=== PATIENT | female | born 1950 | race Caucasian/White ===

== ENCOUNTER → 2017-02-03 | Outpatient (CLI) | payer OTHER ==
[~2017-02-03] MED LIST: ADVAIR HFA115 MCG/21 INH; ALLOPURINOL 10100 M1 PO; ALPRAZOLAM 0.0.25 M1 PO; AMITRIPTYLINE H10 M1 PO; APAP/CODEINE ELI5 M1 OR; APAP650 PO; ARTHROTEC 75 T1 EAC1 PO; AZITHROMYCIN 2250 MG PO; BACTROBAN CREAM30 G1 NASAL; BACTROBAN CREAM30 G1 TOP; CLARINEX5 MG PO; CLEOCIN HCL150 MG PO; COUMADIN 2.5MG2.5 M1 PO; COUMADIN 3 MG TA3 M1 PO; COUMADIN 4 MG TA4 M1 PO; COUMADIN 5 MG TA5 M1 PO; DARVOCET-N 1001 EACH PO; DEEP SEA NASAL44 M1 NASAL; DOXYCYCLINE 10100 M1 PO; DOXYCYCLINE 10100 MG PO; ENOXAPARIN120 MG/0.1 SUBQ; GLIPIZIDE XL5 MG PO; GLIPIZIDE5 MG PO; HIBICLENS120 ML TOP; HYDROCODON-ACE1 EAC7 PO; HYDROCODONE-APA1 TA1 PO; HYDROCODONE-CHLO5 ML PO; INVANZ 1GM/NS 101 GM IV; IRON325 PO; LANSOPRAZOLE30 MG PO; LEVALBUTER1.25 MG/0. INH; LYRICA25 MG PO; MACROBID 100 M100 M1 PO; MEDROL DOSPAK21 TA1 PO; MEDROLDOSEPACK PO; MELOXICAM7.5 MG PO; METFORMIN HYDR100 GM MC; MUCINEX TA600 MG/TA2 PO; MUPIROCIN22 GM; NORCO 5-325 TA1 EACH PO; ONDANSETRON HCL4 M2 PO; PEPCID PO; PERCOCET 7.5-31 EACH PO; PREDNISONE 1 MG1 M1; PREDNISONE 10 M10 M1 PO; PREDNISONE 10 M10 MG PO; PREDNISONE 20 M20 MG PO; PREVACID 30MG C30 M1 OR; PREVACID30 M1 PO; PREVACID30 MG PO; PSEUDOEPHEDRIN120 M1 PO; SINGULAIR; SINGULAIR 10 MG10 M1 PO; SKELAXIN 800 M800 M1 PO; SKELAXIN 800 M800 MG PO; TESSALON PERLE100 MG PO; TRAMADOL 50 MG50 MG PO; VALTREX 500 MG500 MG PO; VALTREX1000 MG PO; XANAX 0.5 MG0.5 M1 PO; XOPENEX HF1 UDINHALE IH; XOPENEX HFA15 GM INH; XOPENEX0.63 MG/3 IH; ZOLOFT100 MG PO; [UNRECOGNIZED DRUG - OTHER]; [UNRECOGNIZED DRUG - OTHER] IV; [UNRECOGNIZED DRUG - SUPPLY]
== END ==
LOC: RAD 01:59
DX: Z12.31 Encounter for screening mammogram for malignant neoplasm of breast (principal)

== ENCOUNTER 2017-03-06 12:37 | Inpatient (IN) | payer OTHER ==
[~2017-03-06] VITALS: Ht 162.6 cm; Wt 105.2 kg
--- NOTE | ~2017-03-06 | HC ---
[facility] [place] [address] CONSULTATION Name: MICHAEL MONTANA Room #: 448-P [facility] IN M.R.#: [id number] Admission: 03/06/17 Attend Phys: Reed Médnez Discharge: Date of : 52 Report #: [id number] THIS REPORT FOR: //name// CC: Abdullahi Gómez DATE OF SERVICE: 03/06/2017 DATE OF SERVICE: 03/06/2017. REFERRING PHYSICIAN: Dr. Méndez. REASON FOR CONSULTATION: Exacerbation of asthma. CHIEF COMPLAINT: Shortness of breath. HISTORY OF PRESENT ILLNESS: Our group was asked to evaluate the patient in consultation while hospitalized at [facility] this evening. She is known to our service, followed by Dr. Carrillo our service for almost 18 years course of persistent asthma as well as for being heterozygous for alpha1-antitrypsin deficiency, was on alpha1 replacement therapy for several years and no longer covered by insurance also had been on IVIG therapy for several years until IgG levels apparently were adequate levels, has had difficulty with persistent asthma and recurrent exacerbations requiring frequent "bursts" of steroids throughout the year, was hospitalized in Intensive Care Unit at a facility in the [place] where she stays during the winter this past October for pneumonia. AT THAT TIME MAY HAVE HAD REACTION TO MUCOMYST NEBULIZER TREATMENTS LIKELY AN ALLERGIC REACTION WITH A DERMATITIS ON HER UPPER LIP. Since that time, she has had difficulty managing her asthma, is currently on Dulera twice daily, Xopenex nebulized, but has had increasing symptoms over the last week, presented to the Emergency Department on the 02/20/2017 with similar complaints, was sent home with "burst" of steroids, saw Dr. Carrillo in our office and she had shown what appeared to be REACTION TO DOXYCYCLINE that she has received from the Emergency Department as well, he increased her prednisone. She states to 90 mg, but she continues to have symptoms, has cough with chest congestion and has difficulty clearing of chest, feel like in the upper chest and with increased wheezing and possible stridor, has had fevers as 101, no chills or rigors, cough has been productive of green sputum. She has received systemic steroids and bronchodilators in the Emergency Department, but has not felt significantly different. Denies any history of need for other injectables to manage her asthma. [facility] [address] [place] [address] CONSULTATION Name: DAYANA MONTANAH Cuco Room #: 448-P [facility] IN ..#: [id number] Admission: 03/06/17 Attend Phys: Reed Méndez Discharge: Date of : 52 Report #: [id number] ALLERGIES: INCLUDE PENICILLIN, SULFA, MORPHINE, CEFOTETAN AND LEVAQUIN LIKELY DOXYCYCLINE AND MUCOMYST. PAST MEDICAL HISTORY: 1. History of alpha1-antitrypsin deficiency heterozygous. 2. Obstructive lung disease, most consistent with some persistent asthma. 3. Obstructive sleep apnea, on nocturnal CPAP. 4. Multiple antibiotic allergies. OUTPATIENT MEDICATIONS: Have been prednisone, Singulair 10 mg daily, allopurinol 100 mg daily, levalbuterol 1.25 p.r.n., Dulera 200/5 two puffs twice daily, Naprosyn 220 mg twice daily, Prevacid 30 mg daily, Zoloft 100 mg at bedtime, Clarinex daily and Arthrotec. 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 FAMILY HISTORY: Negative for any significant pulmonary disease. REVIEW OF SYSTEMS: CONSTITUTIONAL: Fever as described. No chills or rigors. ENT: Denies any upper respiratory congestion, rhinorrhea or dysphagia. CARDIOVASCULAR: No chest pains or palpitations. GASTROINTESTINAL: No nausea, vomiting, diarrhea, constipation or abdominal pain. GENITOURINARY: No dysuria, no frequency. INTEGUMENT: Denies any rash except for the outbreak she had associated with doxycycline has resolved since discontinuing. MUSCULOSKELETAL: No new joint pains or swelling. No significant lower extremity edema reported. PHYSICAL EXAMINATION: VITAL SIGNS: Afebrile, pulse 70s and regular, respiratory rate 22, blood pressure 128/48, oxygen saturation 92% on room air. GENERAL: This is an obese, middle-aged woman in mild respiratory distress. HEENT: Clear oropharynx, Mallampati 2 airway, no thrush. NECK: Supple, no lymphadenopathy. LUNGS: Reveal diffuse prolonged expiratory phase with diffuse expiratory wheezes noted throughout or somewhat coarse. CARDIOVASCULAR: Heart was regular. No murmurs noted. ABDOMEN: Soft, nontender, no masses. EXTREMITIES: Without edema. INTEGUMENT: No significant rash noted. LABORATORY DATA: Sodium 139, potassium 4.0, chloride 105, bicarbonate 23, BUN 19, creatinine 1.0. Glucose 131. Liver enzymes normal. White blood cell count [facility] [address] [place] [address] CONSULTATION Name: MICHAEL MONTANA Room #: 448-P ADM IN M.R.#: [id number] Admission: 03/06/17 Attend Phys: Reed Méndez Discharge: Date of : 52 Report #: [id number] 20,000, hemoglobin 14, hematocrit 42, platelet count 249. 1% band forms, 11% lymphocytes. No arterial blood gas performed. CT scan of the chest PE protocol revealed no pulmonary emboli. There are suboptimal; however, pulmonary contrasting for this is diffuse, somewhat nodular parenchymal infiltrates and some ground glass changes. IMPRESSION: 1. Nodular pulmonary infiltrates and patient is not improving after outpatient therapy and recent hospitalization 4 months ago for similar complaints, be worried about an atypical infectious process. 2. History of obstructive lung disease consistent with chronic obstructive pulmonary disease with an asthmatic component. 3. Alpha1-antitrypsin deficiency. 4. Obstructive sleep apnea. 5. Multiple antibiotic allergies. The patient should be on antimicrobial therapy for what appears to be pneumonia as evidenced by the elevated white blood cell count and pulmonary infiltrates, fever at home and productive sputum of green color. SUGGESTIONS: 1. An Infectious Disease consultation with Dr. Miller who knows this patient to further assist with antibiotic selections given her allergies. 2. Frequent bronchodilators. We will start with, levalbuterol, and ipratropium with intrapulmonary percussive ventilation to assist with airway clearance. 3. Add Mucinex. 4. Systemic steroids with taper. 5. Follow up chest radiograph. 6. Continue with inhaled steroids, we will use budesonide as Dulera not available in the hospital. 7. Additional recommendations to follow. Thank you for requesting our suggestions. Consider fiberoptic bronchoscopy to further evaluate if not improving. <ELECTRONICALLY SIGNED> By: Bhavesh Damon MD 03/07/17 1330 2019 1154 Bhavesh Damon MD /mynor
--- NOTE | ~2017-03-06 | CNG ---
[facility] [place] [address] CYTO-NONGYN REPORT PROCEDURE Name: TEGAN MONTANA Room #: 448-P ADM IN M.R.#: [id number] Admission: 03/06/17 Date of : 52 Discharge: Report #: [id number] Path Case #: [id number] CYTOPATHOLOGY REPORT COLLECTION DATE: 03/09/2017 RECEIVED DATE: 03/09/2017 SUBMITTING PHYS: Dr. Asia Carrillo OTHER PHYS: Dr. Reed Gómez CLINICAL HISTORY: SOB, cough, bronchitis SPECIMEN(S) RECEIVED: A.Bronchoalveolar lavage, NOS B.Bronchial brushings, RLL C.Bronchial brush rinse, RLL * * * * * * * * * * * * FINAL DIAGNOSIS: A. Lung, Bronchoalveolar lavage: - No malignant cells identified. Bronchial epithelial cells, alveolar macrophages and acute inflammatory cells are identified. B. Lung, RLL, Bronchial brushings: - No malignant cells identified. Reactive bronchial epithelial cells, alveolar macrophages and inflammatory cells are identified. C. Lung, RLL, Bronchial brush rinse: - No malignant cells identified. Reactive bronchial epithelial cells, alveolar macrophages and inflammatory cells are identified. PATHOLOGIST: Cristina Bergman M.D. REPORT ELECTRONICALLY SIGNED BY: Cristina Bergman M.D. DATE/TIME: 03/10/2017 16:03 * * * * * * * * * * * * GROSS PATHOLOGY: A. Bronchoalveolar lavage, NOS: The specimen is submitted unfixed, labeled "Tegan Montana S". Received by the Cytology Department is 15 mL of cloudy white fluid. One ThinPrep slide was prepared. B. Bronchial brushings, RLL: The specimen is labeled "Shae Montanah S" and consists of two fixed slides. C. Bronchial brush rinse, RLL: The specimen is labeled "Aldrjoao, Tegan S" and consists of a brush tip in fixative. One ThinPrep slide was prepared. (CLT 03.09.2017) CROCODILE FARMER(S): JOSE ROBERTO Mai(ASCP), [facility] INITIAL CPT CODE(S): A; [address] [facility] [address] [place] [address] CYTO-NONGYN REPORT PROCEDURE Name: TEGAN MONTANA S Room #: [facility]- ADM IN M.R.#: [id number] Admission: 03/06/17 Date of : 52 Discharge: Report #: [id number] Path Case #: [id number]; [id number] C; [id number] Professional services performed by [facility] at [facility] [address] [place] [address] Technical services performed by [facility] at [address] [place] [address]., [address], [place] [address]. [facility], [address] [place] [address] PHONE: [phone] DIRECTOR: Alvin W. Bernardo, M.D. * * * END OF REPORT * * *
--- NOTE | ~2017-03-06 | HC ---
[facility] [place] [address] CONSULTATION Name: MICHAEL MONTANA Room #: 448-P [facility] IN .R.#: [id number] Admission: 03/06/17 Attend Phys: Reed Méndez Discharge: Date of : 52 Report #: [id number] THIS REPORT FOR: //name// CC: Asia Gómez DATE OF SERVICE: 03/07/2017 INFECTIOUS DISEASE CONSULTATION ATTENDING PHYSICIAN: Dr. Reed Méndez. CONSULTATION REQUESTED BY: Dr. Bhavesh Damon and Dr. Maverick Carrillo. REASON FOR CONSULTATION: Pulmonary infiltrates - pneumonia - bronchitis. Multiple drug allergies. HISTORY OF PRESENT ILLNESS: The patient is a 66-year-old white woman admitted through the emergency room with a history of increasing difficulty in breathing and some chronic cough that has failed to improve despite high dose of steroids and prescription of doxycycline that has caused her to experience a drug reaction, rash. At present, the patient is having some cough, unable to produce much sputum and scheduled to have bronchoscopy tomorrow. The patient apparently was residing in [place] during the winter time and was hospitalized for a couple of days in the intensive care unit in a local hospital with a diagnosis of pneumonia. PAST MEDICAL HISTORY: Alpha 1 antitrypsin deficiency with history of reactive airway disease and recurring lower respiratory tract infection. History of glaucoma. Episode of C. difficile colitis. Depression. Status post bilateral hip replacement for avascular necrosis, status post right shoulder rotator cuff surgery in 2010 and subsequently right shoulder replacement in the year 2016. DRUG ALLERGIES: The patient appears to be allergic and intolerant to PENICILLIN (rash), SULFA (rash), DOXYCYCLINE (rash), CEFOTETAN and LEVOFLOXACIN. She is also intolerant to MORPHINE. MEDICATIONS: She is currently on Zithromax 500 mg p.o. daily, loratadine 10 mg p.o. daily, allopurinol 100 mg daily, montelukast 10 mg daily, pantoprazole 40 mg daily, methylprednisolone 60 mg IV q.i.d., Atrovent and levalbuterol inhalation treatments, calcium carbonate 500 mg p.o. q.i.d., guaifenesin 1200 mg b.i.d., enoxaparin 40 mg at bedtime and sertraline 100 mg at bedtime. She is on budesonide 0.5 mg b.i.d. inhalation treatments. She is on p.r.n. zolpidem tartrate and p.r.n. polyethylene glycol. Had supplemental nitroglycerin p.r.n. [address] [address] CONSULTATION Name: MICHAEL MONTANA Room #: 448-P [facility] IN M.R.#: [id number] Admission: 03/06/17 Attend Phys: Reed Méndez Discharge: Date of : 52 Report #: [id number] SOCIAL HISTORY: See H and P and old records. FAMILY HISTORY: See H and P and old records. REVIEW OF SYSTEMS: Besides respiratory symptoms of cough, shortness of breath and dyspnea on exertion, denies fevers, night sweats or systemic symptoms. PHYSICAL EXAMINATION: GENERAL: Overweight woman, not toxic looking. VITAL SIGNS: On admission, temperature 99, pulse 96, respirations 22 and BP 172/64. Height 5 feet 4 inches, weight 232 pounds. O2 saturation is 95% on room air. HEENT: Head normocephalic, atraumatic. Pupils reactive. Mouth, no thrush. NECK: Supple. No thyromegaly or lymphadenopathy. LUNGS: Reveal some few rhonchi with wheezes here and there. HEART: S1, S2. No gallop or murmur. ABDOMEN: Obese, soft. No masses or megaly. PELVIC AND RECTAL EXAMINATION: Deferred. EXTREMITIES: No clubbing or cyanosis. NEUROLOGIC: Grossly within normal limits. LABORATORY DATA: Sodium 139, potassium 4, BUN 19, creatinine 1 and calcium 8.6. Albumin 3 g/dL. NT-proBNP 313. WBC 20,500, hemoglobin 13.6 g/dL and platelets 249,000. White blood cell count differential revealed 84% segmented neutrophils and 1% bands. Urinalysis normal. Chest x-ray and CT scan of the chest, reviewed with Dr. Rashawn Cloud. The patient had narrowing of the upper airways as well as infiltrates mainly on the right lower lobe and some nodularity on both lungs. The CT scan findings are new as compared to previous CT scan of the chest done in December of 2016. ASSESSMENT: 1. Bilateral nodular pulmonary infiltrates - bronchitis, question etiology. 2. Alpha-1 antitrypsin deficiency. 3. Reactive airway disease. 4. Multiple drug allergies as enumerated above. 5. Status post bilateral hip and right shoulder replacement. SUGGESTIONS: Recommend proceed with bronchoscopy as already scheduled by Dr. Carrillo. Continues Zithromax. Since the patient has resided in [place], we will obtain fungal serology and specifically concerned about coccidioidomycosis. [facility] [address] [place] [address] CONSULTATION Name: MICHAEL MONTANA Room #: 448-P ADM IN M.R.#: [id number] Admission: 03/06/17 Attend Phys: Reed Méndez Discharge: Date of : 52 Report #: [id number] Carrillo, thank you for requesting my suggestions in the care of your patient. <ELECTRONICALLY SIGNED> By: Juan Miller MD 03/08/17 1052 1050 1300 Juan Miller MD /nt
--- NOTE | ~2017-03-06 | EKG ---
[address] [place] [address] ELECTROCARDIOGRAM REPORT Name: MICHAEL MONTANA Room #: 448-P [facility] IN M.R.#: [id number] Admission: 03/06/17 Attend Phys: Reed Méndez Discharge: Date of : 52 Report #: [id number] THIS REPORT FOR: //name// [facility] ED Test Date: 2017-03-06 Test Time: 12:55:54 Pat Name: MICHAEL MONTANA Department: Room: 448 Gender: F Refractory Manager: june : 1950 Requested By: Marcy Collado Order Number: [id number] MD: Duane Miller Measurements Intervals [place] Rate: 100 P: 20 ID: [id number] QRS: -61 QRSD: 95 T: 66 QT: 356 QTc: 460 Interpretive Statements Sinus tachycardia Left anterior fascicular block Abnormal R-wave progression, late transition Electronically Signed On 03-08-2017 9:43:09 CDT by Duane Miller [email or web address] <ELECTRONICALLY SIGNED> By: Duane Miller MD 03/08/17 0943 D: [id number] Duane Miller MD /LUCIANO
[2017-03-06 12:37] VITALS: BP 172/64
[~2017-03-06 12:37] MED LIST changes: +ALEVE220 MG PO; +DULERA 200 MCG/13 GM INH
[2017-03-06 13:09] LABS: HEMOGLOBIN 13.6 gm/dL (12.0-15.0); MCH 26.9 pg (26.0-34.0); MCHC 32.3 g/dL (28.0-37.0); MCV 83.3 fL (80.0-100.0); PLATELET COUNT 249 thou/uL (150-400); RBC 5.04 mil/uL (4.20-5.00); RDW 15.6 % (10.5-14.5); WBC 20.5 thou/uL (4.0-11.0)
[2017-03-06 13:10] LABS: MANUAL DIFF YES
[2017-03-06 13:15] LABS: ANION GAP 11 mmol/L (7-16); BUN 19 mg/dL (7-18); CALCIUM 8.6 mg/dL (8.5-10.1); CHLORIDE 105 mmol/L (98-107); CO2 23 mmol/L (21-32); GLUCOSE 131 mg/dL (74-106); SODIUM 139 mmol/L (136-145)
[2017-03-06 13:22] LABS: ALKALINE PHOSPHATASE 96 U/L (46-116); SGOT 27 U/L (15-37); SGPT 35 U/L (30-65); TOTAL BILIRUBIN 0.5 mg/dL (<0.1-1.0); TOTAL PROTEIN 7.2 g/dL (6.4-8.2); TROPONIN-I < 0.04 ng/mL (<0.04-0.07)
[2017-03-06] MEDS ORDERED: PREDNISONE 10 M10 MG PO (13:29)
[2017-03-06 13:44] LABS: ABSOLUTE NEUTROPHILS 17.4 thou/uL (1.4-8.2); ANISOCYTOSIS SLIGHT; TOTAL CELL COUNT 100
[2017-03-06 15:33] LABS: URINE BILIRUBIN NEGATIVE (Negative); URINE BLOOD NEGATIVE (Negative); URINE COLOR YELLOW; URINE GLUCOSE-RANDOM* NEGATIVE (Negative); URINE KETONES NEGATIVE (Negative); URINE NITRITE NEGATIVE (Negative); URINE PROTEIN (DIPSTICK) NEGATIVE (Negative); URINE UROBILINOGEN 0.2 E.U./dl (0.2-1.0)
[2017-03-06 16:01] VITALS: BP 169/71
[2017-03-06 16:45] VITALS: BP 159/56
[2017-03-06] MEDS ORDERED: PREDNISONE 20 M20 MG PO (18:00)
[2017-03-06 19:18] VITALS: BP 128/48
[2017-03-06 23:27] VITALS: BP 132/38
[2017-03-07 04:25] VITALS: BP 136/51
[2017-03-07 08:00] VITALS: BP 136/51; BP 176/79
[2017-03-07 16:00] VITALS: BP 148/55
[2017-03-07 20:20] VITALS: BP 157/58
[2017-03-08 04:20] VITALS: BP 135/62
[2017-03-08 06:19] LABS: MCV 83.4 fL (80.0-100.0); RBC 4.67 mil/uL (4.20-5.00)
[2017-03-08 06:21] LABS: HEMATOCRIT 38.9 % (37.0-47.0); HEMOGLOBIN 12.6 gm/dL (12.0-15.0); MCHC 32.4 g/dL (28.0-37.0); RDW 14.5 % (10.5-14.5); WBC 10.6 thou/uL (4.0-11.0)
[2017-03-08 06:50] LABS: ALBUMIN 2.6 g/dL (3.4-5.0); CALCIUM 8.6 mg/dL (8.5-10.1); PHOSPHORUS 3.3 mg/dL (2.5-4.9); POTASSIUM 4.9 mmol/L (3.5-5.1)
[2017-03-08 08:00] VITALS: BP 140/65
[2017-03-08 19:17] VITALS: BP 127/51
[2017-03-09 04:35] VITALS: BP 151/60
[2017-03-09 07:40] VITALS: BP 127/57
[2017-03-09 15:09] VITALS: BP 135/50
[2017-03-09 18:11] LABS: BLASTOMYCES-IMMUNODIFF Negative (Neg:<1:1); HISTOPLASMA-IMMUNODIFF Negative (Neg:<1:1)
[2017-03-09 19:53] VITALS: BP 145/48
[2017-03-10 04:40] VITALS: BP 153/57
[2017-03-10 08:00] VITALS: BP 154/64
[2017-03-10 13:10] LABS: STREP PNEUMO SEROTYPE 1 IGG <0.3 ug/mL (>1.3); STREP PNEUMO SEROTYPE 12F IGG <0.3 ug/mL (>1.3); STREP PNEUMO SEROTYPE 14 IGG 1.1 ug/mL (>1.3); STREP PNEUMO SEROTYPE 17F IgG <0.3 ug/mL (>1.3); STREP PNEUMO SEROTYPE 19F IGG 3.9 ug/mL (>1.3); STREP PNEUMO SEROTYPE 2 IGG <0.3 ug/mL (>1.3); STREP PNEUMO SEROTYPE 20 IGG 0.5 ug/mL (>1.3); STREP PNEUMO SEROTYPE 22F IGG <0.3 ug/mL (>1.3); STREP PNEUMO SEROTYPE 23F IGG <0.3 ug/mL (>1.3); STREP PNEUMO SEROTYPE 26 IGG <0.3 ug/mL (>1.3); STREP PNEUMO SEROTYPE 3 IGG 0.7 ug/mL (>1.3); STREP PNEUMO SEROTYPE 34 IGG 0.4 ug/mL (>1.3); STREP PNEUMO SEROTYPE 4 IGG <0.3 ug/mL (>1.3); STREP PNEUMO SEROTYPE 43 IGG 0.3 ug/mL (>1.3); STREP PNEUMO SEROTYPE 5 IGG <0.3 ug/mL (>1.3); STREP PNEUMO SEROTYPE 51 IGG 0.3 ug/mL (>1.3); STREP PNEUMO SEROTYPE 54 IGG 1.3 ug/mL (>1.3); STREP PNEUMO SEROTYPE 56 IGG <0.3 ug/mL (>1.3); STREP PNEUMO SEROTYPE 57 IGG 2.7 ug/mL (>1.3); STREP PNEUMO SEROTYPE 68 IGG <0.3 ug/mL (>1.3); STREP PNEUMO SEROTYPE 70 IGG <0.3 ug/mL (>1.3); STREP PNEUMO SEROTYPE 8 IGG <0.3 ug/mL (>1.3); STREP PNEUMO SEROTYPE 9N IGG <0.3 ug/mL (>1.3)
[2017-03-10 16:00] VITALS: BP 175/83
[2017-03-10 17:12] LABS: ASPERGILLUS FLAVUS-ID Negative (Neg:<1:1); ASPERGILLUS FUMIGATUS-ID Negative (Neg:<1:1); ASPERGILLUS NIGER-ID Negative (Neg:<1:1)
[2017-03-10 19:36] VITALS: BP 151/58
[2017-03-11 03:15] LABS: GLYCOHEMOGLOBIN (HGB A1C) 6.3 % (4.8-5.6)
[2017-03-11 03:53] VITALS: BP 133/61
[2017-03-11 08:00] VITALS: BP 168/62
[2017-03-11 19:49] VITALS: BP 140/63
[2017-03-12 05:56] LABS: HEMATOCRIT 40.9 % (37.0-47.0); HEMOGLOBIN 13.7 gm/dL (12.0-15.0); MCH 27.8 pg (26.0-34.0); MCHC 33.5 g/dL (28.0-37.0); MCV 83.1 fL (80.0-100.0); PLATELET COUNT 162 thou/uL (150-400); RBC 4.92 mil/uL (4.20-5.00); RDW 15.4 % (10.5-14.5); WBC 9.3 thou/uL (4.0-11.0)
[2017-03-12 06:07] LABS: MANUAL DIFF YES
[2017-03-12 06:16] LABS: ALBUMIN 2.8 g/dL (3.4-5.0); CALCIUM 8.5 mg/dL (8.5-10.1); CREATININE 0.9 mg/dL (0.6-1.0); POTASSIUM 4.5 mmol/L (3.5-5.1); TOTAL BILIRUBIN 0.4 mg/dL (<0.1-1.0); TOTAL PROTEIN 6.2 g/dL (6.4-8.2)
[2017-03-12 06:23] VITALS: BP 170/68
[2017-03-12 08:09] VITALS: BP 137/54
[2017-03-12] MEDS ORDERED: ZITHROMAX250 MG NG (09:28)
[2017-03-12 09:38] VITALS: BP 137/54
[2017-03-12 10:01] LABS: ABSOLUTE NEUTROPHILS 7.7 thou/uL (1.4-8.2); ANISOCYTOSIS SLIGHT; METAMYELOCYTES 4 %; TOTAL CELL COUNT 100
== END 2017-03-12 09:55 | disposition home or self-care (01) | DRG 871 ==
LOC: ER 12:37 → EROBS 15:32 → 4S 15:32
PROVIDERS: Hospitalist; Internal Medicine Infectious Disease; Internal Medicine Pulmonary Disease; Nurse Practitioner Family; Physician Assistant
PROC: 0B968ZX Drainage of Right Lower Lobe Bronchus, Via Natural or Artificial Opening Endoscopic, Diagnostic (ICD-10-PCS; principal; 2017-03-08)
PROC: 0B9B8ZX Drainage of Left Lower Lobe Bronchus, Via Natural or Artificial Opening Endoscopic, Diagnostic (ICD-10-PCS; principal; 2017-03-08)
PROC: 0B958ZX Drainage of Right Middle Lobe Bronchus, Via Natural or Artificial Opening Endoscopic, Diagnostic (ICD-10-PCS; principal; 2017-03-08)
DX: A41.9 Sepsis, unspecified organism (principal); J96.01 Acute respiratory failure with hypoxia; J18.9 Pneumonia, unspecified organism; J44.1 Chronic obstructive pulmonary disease with (acute) exacerbation; J44.0 Chronic obstructive pulmonary disease with (acute) lower respiratory infection; M10.9 Gout, unspecified; K21.9 Gastro-esophageal reflux disease without esophagitis; E11.9 Type 2 diabetes mellitus without complications; F32.9 Major depressive disorder, single episode, unspecified; Z96.611 Presence of right artificial shoulder joint; I10 Essential (primary) hypertension; Z96.643 Presence of artificial hip joint, bilateral; H40.9 Unspecified glaucoma; E88.01 Alpha-1-antitrypsin deficiency; J20.9 Acute bronchitis, unspecified; G47.33 Obstructive sleep apnea (adult) (pediatric); Z98.42 Cataract extraction status, left eye; Z88.5 Allergy status to narcotic agent; Z88.1 Allergy status to other antibiotic agents; Z88.2 Allergy status to sulfonamides; Z90.49 Acquired absence of other specified parts of digestive tract; Z86.711 Personal history of pulmonary embolism; Z88.8 Allergy status to other drugs, medicaments and biological substances; Z87.891 Personal history of nicotine dependence; Z98.41 Cataract extraction status, right eye
CPT/HCPCS: 10100; 27001

== ENCOUNTER 2017-04-19 09:57 | Inpatient (IN) | payer OTHER ==
[~2017-04-19] VITALS: Ht 162.6 cm; Wt 109.3 kg
--- NOTE | ~2017-04-19 | HC ---
[facility] [place] [address] CONSULTATION Name: MICHAEL MONTANA Room #: 310-P [facility] IN M.R.#: [id number] Admission: 04/19/17 Attend Phys: Sigifredo Benavides MD Discharge: Date of : 52 Report #: [id number] THIS REPORT FOR: //name// CC: Sigifredo Gómez DATE OF SERVICE: 04/19/2017 REASON FOR CONSULTATION: Exacerbation of obstructive lung disease. IMPRESSION: 1. Exacerbation of obstructive lung disease. 2. Atelectasis, no definite pneumonia. 3. Obstructive sleep apnea. 4. History of alpha-1 antitrypsin deficiency. 5. MULTIPLE ANTIBIOTIC ALLERGIES. PLAN: Corticosteroids, IV fluids, hold on antibiotics. We will follow closely with you. Continue bronchodilators. HISTORY OF PRESENT ILLNESS: The patient was being tapered off corticosteroids after last admission; however, has not improved and was sent to the Emergency Room. She is feeling better this evening. I saw her in the Emergency Room this evening, feeling better. We will continue same. PAST MEDICAL HISTORY: 1. Alpha-1 antitrypsin deficiency, heterozygous. 2. Obstructive lung disease/asthma. 3. JEAN, on CPAP. MEDICATIONS: Included Clarinex, Arthrotec, Zoloft, Prevacid, Naprosyn, Dulera, levalbuterol, allopurinol, Singulair. SOCIAL HISTORY: Positive tobacco in distant past, worked in a [employer]. Positive ETOH, rare. FAMILY HISTORY: Negative for lung disease. REVIEW OF SYSTEMS: No fever or chills. Positive shortness of breath, cough, oral dryness. No nausea or vomiting, no diarrhea. PHYSICAL EXAMINATION: VITAL SIGNS: Temperature 98.3, pulse 96, respirations 18, BP 145/50. EYES: Negative icterus. NECK: Negative JVD. LUNGS: Showed wheeze bilaterally. [facility] [address] [place] [address] CONSULTATION Name: MICHAEL MONTANA Room #: 310-P [facility] IN [facility]#: [id number] Admission: 04/19/17 Attend Phys: Sigifredo Benavides MD Discharge: Date of : 52 Report #: [id number] HEART: Regular. ABDOMEN: Bowel sounds present. EXTREMITIES: Showed no edema. Bruising noted. LABORATORY DATA: X-rays were reviewed. I appreciate the opportunity to assist in the care of your patient. By: 2044 Asia Carrillo MD /nt
[2017-04-19 09:57] VITALS: BP 136/97
[~2017-04-19 09:57] MED LIST changes: +ZITHROMAX250 MG NG
[2017-04-19] MEDS ORDERED: PREVACID30 M2 PO (10:08)
[2017-04-19] MEDS ORDERED: ALEVE220 MG PO (10:08)
[2017-04-19 10:40] LABS: HEMATOCRIT 41.6 % (37.0-47.0); HEMOGLOBIN 13.8 gm/dL (12.0-15.0); MCHC 33.2 g/dL (28.0-37.0); MCV 84.4 fL (80.0-100.0); PLATELET COUNT 242 thou/uL (150-400); RBC 4.93 mil/uL (4.20-5.00); RDW 18.1 % (10.5-14.5); WBC 12.2 thou/uL (4.0-11.0)
[2017-04-19 10:42] LABS: MANUAL DIFF YES
[2017-04-19 10:45] LABS: ABG SAMPLE TYPE ARTERIAL; BE(vivo) 2.8 mmol/L (-2 to +3); HCO3 23.5 mmol/L (22.0-26.0); LACTATE 2.68 mmol/L (0.5-2.0); O2(CT) 19.8 mL/dL (15.0-23.0); O2Hb 96.7 % (92.0-98.0); PCO2 26.1 mmHg (35.0-45.0); PO2 86.5 mmHg (80.0-100.0); pH 7.572 (7.360-7.450); sO2 97.8 % (92.0-98.0); tCO2 24.3 mmol/L (24.0-30.0)
[2017-04-19 10:46] LABS: ABG COMMENT NO COMPLICATIONS.; STICK SITE R.RADIAL
[2017-04-19 10:50] LABS: CALCIUM 9.7 mg/dL (8.5-10.1); POTASSIUM 4.5 mmol/L (3.5-5.1)
[2017-04-19 11:31] LABS: ABSOLUTE NEUTROPHILS 9.4 thou/uL (1.4-8.2); ANISOCYTOSIS 2+; PLATELET ESTIMATE NORMAL; TOTAL CELL COUNT 100
[2017-04-19 16:00] VITALS: BP 151/84
[2017-04-19 19:29] VITALS: BP 145/50
[2017-04-20 03:25] VITALS: BP 126/82
[2017-04-20 06:30] LABS: CALCIUM 8.8 mg/dL (8.5-10.1); MAGNESIUM 2.6 mg/dL (1.8-2.4); POTASSIUM 4.5 mmol/L (3.5-5.1)
[2017-04-20 07:10] VITALS: BP 134/66
[2017-04-20 17:15] VITALS: BP 174/84
[2017-04-20 20:00] VITALS: BP 171/70
[2017-04-21 04:00] VITALS: BP 150/74
[2017-04-21 06:45] LABS: HEMATOCRIT 37.9 % (37.0-47.0); HEMOGLOBIN 12.7 gm/dL (12.0-15.0); MCH 28.3 pg (26.0-34.0); MCHC 33.5 g/dL (28.0-37.0); MCV 84.3 fL (80.0-100.0); RBC 4.5 mil/uL (4.20-5.00); RDW 18.3 % (10.5-14.5); WBC 10.2 thou/uL (4.0-11.0)
[2017-04-21 06:57] LABS: CALCIUM 8.7 mg/dL (8.5-10.1); CREATININE 0.8 mg/dL (0.6-1.0); POTASSIUM 4.7 mmol/L (3.5-5.1)
[2017-04-21 09:30] VITALS: BP 150/74
[2017-04-21 09:55] VITALS: BP 141/65
[2017-04-21 18:00] VITALS: BP 149/71
[2017-04-21 20:10] VITALS: BP 162/93
[2017-04-22 04:30] VITALS: BP 152/89
[2017-04-22 08:48] VITALS: BP 160/70
[2017-04-22 09:46] LABS: HEMATOCRIT 43.2 % (37.0-47.0); HEMOGLOBIN 14.1 gm/dL (12.0-15.0); MCH 28.3 pg (26.0-34.0); MCHC 32.8 g/dL (28.0-37.0); MCV 86.4 fL (80.0-100.0); RDW 18.3 % (10.5-14.5); WBC 11.5 thou/uL (4.0-11.0)
[2017-04-22 09:51] LABS: CALCIUM 8.9 mg/dL (8.5-10.1); CREATININE 0.9 mg/dL (0.6-1.0); POTASSIUM 4.1 mmol/L (3.5-5.1)
[2017-04-22 16:00] VITALS: BP 155/73
[2017-04-22 20:30] VITALS: BP 131/69
[2017-04-23 04:15] VITALS: BP 125/60
[2017-04-23 07:27] VITALS: BP 173/82
[2017-04-23] MEDS ORDERED: MIRALAX17 GM PO (10:20)
[2017-04-23] MEDS ORDERED: PREDNISOLONE 5 M5 M1 PO (10:20)
[2017-04-23] MEDS ORDERED: COLACE 100 MG100 MG PO (10:20)
[2017-04-23 12:35] VITALS: BP 173/82
[2017-04-23 13:40] VITALS: BP 173/82
== END 2017-04-23 13:41 | disposition home or self-care (01) | DRG 191 ==
LOC: ER 09:57 → EROBS 12:11 → 3N 12:11
PROVIDERS: Emergency Medicine; Family Medicine; Nurse Practitioner
PROC: B548ZZA Ultrasonography of Superior Vena Cava, Guidance (ICD-10-PCS; principal; 2017-04-19)
PROC: 02HV33Z Insertion of Infusion Device into Superior Vena Cava, Percutaneous Approach (ICD-10-PCS; principal; 2017-04-19)
DX: J44.1 Chronic obstructive pulmonary disease with (acute) exacerbation (principal); J98.11 Atelectasis; Z68.41 Body mass index [BMI] 40.0-44.9, adult; Z96.643 Presence of artificial hip joint, bilateral; Z96.611 Presence of right artificial shoulder joint; M10.9 Gout, unspecified; K21.9 Gastro-esophageal reflux disease without esophagitis; H40.9 Unspecified glaucoma; F32.9 Major depressive disorder, single episode, unspecified; G47.33 Obstructive sleep apnea (adult) (pediatric); D72.829 Elevated white blood cell count, unspecified; E88.01 Alpha-1-antitrypsin deficiency; E66.3 Overweight; E11.9 Type 2 diabetes mellitus without complications; Z87.01 Personal history of pneumonia (recurrent); Z86.711 Personal history of pulmonary embolism; Z98.49 Cataract extraction status, unspecified eye; Z88.6 Allergy status to analgesic agent; Z88.1 Allergy status to other antibiotic agents; Z87.891 Personal history of nicotine dependence; Z88.2 Allergy status to sulfonamides; Z88.0 Allergy status to penicillin; Z88.8 Allergy status to other drugs, medicaments and biological substances; Z79.52 Long term (current) use of systemic steroids; Z79.899 Other long term (current) drug therapy
CPT/HCPCS: 10096

== ENCOUNTER → 2017-05-29 | Outpatient (CLI) | payer OTHER ==
[~2017-05-29] VITALS: Ht 162.6 cm; Wt 113.1 kg
[~2017-05-29] MED LIST changes: +ARTHROTEC 50 E1 EACH PO; +COLACE 100 MG100 MG PO; +MIRALAX17 GM PO; +PREDNISOLONE 5 M5 M1 PO; +PREVACID30 M2 PO
--- NOTE | ~2017-05-29 | HPC ---
[facility] [place] [address] PAIN MANAGEMENT CONSULTATION Name: MICHAEL MONTANA Room #: [facility].#: [id number] Admission: 05/29/17 Attend Phys: Niraj Crystal DO Discharge: Date of : 52 Report #: [id number] THIS REPORT FOR: //name// CC: Hank Crystal The patient is a 66-year-old female, she was seen nearly a year ago, May 24, with bilateral SI mediated pain. She had been seen 2 years prior in 2013, with SI mediated pain and now some 4 years ago in 2012, with lumbar radicular pain. She somewhat lost to follow up, returns to pain clinic today. Today, she notes pain is primarily in the low back, bilateral legs, but not radiating down to both feet. She notes lumbar back pain is chronic and aching, rates it a 5 on a VAS, exacerbated with standing and walking. The patient has chronic asthma, she has been on steroids 1998. She had a right shoulder replacement in 2015 and she had bilateral hip replacements due to avascular necrosis in the distant past. 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 Likely component of osteoporosis. She returns to pain clinic today. Again, with a new complaint, different than the SI mediated pain, which was well treated with the injection a year ago. She notes some subjective weakness in the legs, pain posterior aspect of both legs, exacerbated with standing, walking and bending. PHYSICAL EXAMINATION: Shows an obese 66-year-old female, BMI is 42.8 kg/m2. Vital signs; however, stable. Rises from chair using armrests. Antalgic gait. Diffuse tenderness across the low back. Positive straight leg raise bilaterally. Diminished strength in the lower extremities. Little tenderness over the SI joints, but not clinically concerning. ASSESSMENT: Sacroiliac joint dysfunction by history, steroid dependent, morbid obesity and reactive airway disease as comorbidities with acute exacerbation of lumbar radiculopathy. RECOMMENDATION: Epidural injection under fluoroscopy today at L4-L5. Follow up in 3 weeks to reevaluate. PROCEDURE: Lumbar epidural injection under fluoroscopy. PROCEDURE NOTE: After both written and informed consent to include risk of spinal cord damage, increased pain, weakness and dural puncture, the patient was taken to the fluoroscopy suite, placed in the prone position. After sterile prep and drape, a skin wheal with lidocaine was raised. A 4.5-inch 20-gauge epidural Tuohy needle was inserted in the midline at L4-L5 with good loss to resistance. Negative aspiration for cerebrospinal fluid or blood was noted. [place] [id number] PAIN MANAGEMENT CONSULTATION Name: SHWETHAJANIEMICHAEL S Room #: REG [facility] Bacilio#: [id number] Admission: 05/29/17 Attend Phys: iNraj Crystal DO Discharge: Date of : 52 Report #: [id number] Then 1 mL of Omnipaque under biplanar fluoroscopy showed good spread within the epidural space. This was followed with 80 mg of triamcinolone plus 1 mL of 1.5% preservative-free Xylocaine, 0.5 mL Xylocaine was then injected to flush the needle; it was removed. The patient was monitored for an appropriate period of time and discharged in good and stable condition. By: 1455 1553 Niraj Crystal DO /nt
[2017-05-29 13:39] VITALS: BP 158/88
== END | disposition home or self-care (01) ==
LOC: PAIN 04-20 08:03
DX: M54.16 Radiculopathy, lumbar region (principal); E66.01 Morbid (severe) obesity due to excess calories; Z68.41 Body mass index [BMI] 40.0-44.9, adult; J45.909 Unspecified asthma, uncomplicated; E11.9 Type 2 diabetes mellitus without complications; M81.0 Age-related osteoporosis without current pathological fracture; Z79.899 Other long term (current) drug therapy; M53.3 Sacrococcygeal disorders, not elsewhere classified

== ENCOUNTER → 2017-06-22 | Outpatient (CLI) | payer OTHER ==
[~2017-06-22] VITALS: Ht 162.6 cm; Wt 116.6 kg
--- NOTE | ~2017-06-22 | HPC ---
[facility] [place] [address] PAIN MANAGEMENT CONSULTATION Name: MICHAEL MONTANA Room #: REG [facility]#: [id number] Admission: 06/22/17 Attend Phys: Niraj Crystal DO Discharge: Date of : 52 Report #: [id number] THIS REPORT FOR: //name// CC: Hank Crystal The patient is a 66-year-old female. She had prior been seen in 2012 and 2013 and earlier this summer for SI-mediated pain. Last visit 05/29/2017, I proceeded with an epidural injection at L4-L5 for ongoing radicular component of pain. The patient returns to pain clinic today. She notes that the epidural injection did afford a good ongoing relief, in fact the radicular component of pain was essentially absent. She notes pain relief is about 90%. She does, however, have some point tenderness left low back over the SI area. PHYSICAL EXAMINATION: Shows a pleasant 66-year-old female, morbidly obese with a BMI of 44.1 kilograms per meter squared. Vital signs are stable as noted in the EMR. Rises from chair using armrest, modestly antalgic gait, exquisitely tender over the left SI. Victoriano test was cautiously done. She is status post bilateral total hip arthroplasties. With the patient in the right lateral decubitus position and left leg flexion, she does have significant tenderness over the left SI joint. Gaenslen test is modestly positive, again test done generally in consideration of total hip arthroplasty. Pelvic distraction does exacerbate some pain again; this however is little technically difficult due to rather corpulent abdomen. ASSESSMENT: 1. Lumbar radiculopathies with dramatic improvement following epidural injection at last visit. Per patient, she has had some ongoing 90% relief of the radicular component. 2. Left sacroiliac-mediated pain. 3. Steroid-dependent asthma and morbid obesity. RECOMMENDATION: 1. After discussion with the patient today about therapeutic options, we have elected have her resume physical therapy. She has done PT in the past. She knows what exercises to do for core strengthening. 2. Left SI joint injection under fluoroscopy today. 3. No medication changes were accomplished, medications are being managed by her primary physician, she uses prednisone for asthma, really no other analgesic medications. We trialed Lyrica in the past, but it caused cognitive impairment. ASSESSMENT AND RECOMMENDATION: 1. Left sacroiliac joint dysfunction. Proceed with left SI joint injection under fluoroscopy and core therapy. 2. Lumbar radiculopathy secondary to spinal stenosis, morbid obesity, [place] [address] PAIN MANAGEMENT CONSULTATION Name: DAYANA MONTANAOumar Norwood Room #: REG [facility] [place]#: [id number] Admission: 06/22/17 Attend Phys: Niraj Crystal DO Discharge: Date of : 52 Report #: [id number] steroid-dependent asthma. Recommendation again following last injection, radicular symptoms have dramatically improved. No further interventional therapy is required. Strongly recommend increasing physical activity, weight reduction with caloric restriction and increase physical activity. PROCEDURE: Left SI joint injection under fluoroscopy. PROCEDURE NOTE: After written informed consent was obtained, the patient was taken to fluoroscopy suite, placed in prone position. After sterile prep and drape, skin wheal was raised. A 22-gauge stylet needle was placed to contact the inferior aspect of the left SI joint. Negative aspiration was accomplished. 1 mL of Omnipaque was injected, which showed spread within the joint. This was followed with 40 mg triamcinolone plus 2 mL of 0.5% preservative-free bupivacaine. Needle was removed. The area was cleansed, Band-Aids applied. The patient was monitored for an appropriate period of time, discharged in good and stable condition. <ELECTRONICALLY SIGNED> By: Niraj Crystal DO 06/23/17 1225 1152 2116 Niraj Crystal DO /nt
[2017-06-22 10:57] VITALS: BP 144/80
== END | disposition home or self-care (01) ==
LOC: PAIN 06:57
DX: M53.3 Sacrococcygeal disorders, not elsewhere classified (principal); M54.16 Radiculopathy, lumbar region; M48.06 Spinal stenosis, lumbar region; J45.998 Other asthma; E66.01 Morbid (severe) obesity due to excess calories; G89.29 Other chronic pain; F41.1 Generalized anxiety disorder; Z79.51 Long term (current) use of inhaled steroids; Z88.0 Allergy status to penicillin; Z88.2 Allergy status to sulfonamides; Z87.891 Personal history of nicotine dependence; Z68.41 Body mass index [BMI] 40.0-44.9, adult; Z98.890 Other specified postprocedural states; Z88.8 Allergy status to other drugs, medicaments and biological substances

== ENCOUNTER 2017-07-07 12:51 | Emergency (ER) | payer OTHER ==
[~2017-07-07] VITALS: Ht 162.6 cm; Wt 112.5 kg
[2017-07-07] MEDS ORDERED: NORCO 5-325 TA1 EACH PO (14:28)
[2017-07-07 15:05] VITALS: BP 173/78
== END 2017-07-07 15:06 | disposition home or self-care (01) ==
LOC: ER 12:51
DX: S82.62XA Displaced fracture of lateral malleolus of left fibula, initial encounter for closed fracture (principal); M10.9 Gout, unspecified; K21.9 Gastro-esophageal reflux disease without esophagitis; J44.9 Chronic obstructive pulmonary disease, unspecified; F32.9 Major depressive disorder, single episode, unspecified; E11.9 Type 2 diabetes mellitus without complications; G47.30 Sleep apnea, unspecified; F10.99 Alcohol use, unspecified with unspecified alcohol-induced disorder; Z96.643 Presence of artificial hip joint, bilateral; Z90.89 Acquired absence of other organs; Z86.711 Personal history of pulmonary embolism; Z96.611 Presence of right artificial shoulder joint; Z88.5 Allergy status to narcotic agent; Z88.8 Allergy status to other drugs, medicaments and biological substances; Z88.1 Allergy status to other antibiotic agents; Z88.0 Allergy status to penicillin; Z88.2 Allergy status to sulfonamides; Z87.891 Personal history of nicotine dependence; W01.0XXA Fall on same level from slipping, tripping and stumbling without subsequent striking against object, initial encounter; Y93.01 Activity, walking, marching and hiking; Y92.89 Other specified places as the place of occurrence of the external cause; Y99.8 Other external cause status

== ENCOUNTER → 2017-07-17 | Outpatient (CLI) | payer OTHER | LOC: NUC 07:53 | DX: S82.402A Unspecified fracture of shaft of left fibula, initial encounter for closed fracture (principal); M85.89 Other specified disorders of bone density and structure, multiple sites; X58.XXXA Exposure to other specified factors, initial encounter; Y93.89 Activity, other specified; Y92.89 Other specified places as the place of occurrence of the external cause; Y99.8 Other external cause status ==

== ENCOUNTER 2017-08-07 15:35 | Inpatient (IN) | payer OTHER ==
[~2017-08-07] VITALS: Ht 162.6 cm; Wt 113.7 kg
--- NOTE | ~2017-08-07 | EKG ---
[address] [place] [address] ELECTROCARDIOGRAM REPORT Name: MICHAEL MONTANA Cuco Room #: 218-P [facility] IN M.R.#: [id number] Admission: 08/07/17 Attend Phys: Gregory Rodriguez DO Discharge: Date of : 52 Report #: [id number] THIS REPORT FOR: //name// 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 : 1950 Requested By: Marcy Collado Order Number: [id number] MD: Duane Miller Measurements Intervals [place] Rate: 112 P: -1 AR: 148 QRS: -52 QRSD: 83 T: 80 QT: 335 QTc: 458 Interpretive Statements Sinus tachycardia Atrial premature complexes Left anterior fascicular block Abnormal R-wave progression, late transition Compared to ECG 03/06/2017 12:55:54 Atrial premature complex(es) now present Electronically Signed On 08-07-2017 22:46:07 CDT by Duane Miller [email or web address] <ELECTRONICALLY SIGNED> By: Duane Miller MD 08/07/17 2246 1543 1543 Duane Miller MD /EPI
--- NOTE | ~2017-08-07 | HC ---
[facility] [place] [address] CONSULTATION Name: MICHAEL MONTANA Room #: 218-P [facility] IN M.R.#: [id number] Admission: 08/07/17 Attend Phys: Gregory Rodriguez DO Discharge: Date of : 52 Report #: [id number] THIS REPORT FOR: //name// CC: Gregory Gómez DATE OF SERVICE: 08/07/2017 REASON FOR CONSULTATION: Respiratory failure. IMPRESSION: 1. Exacerbation of obstructive lung disease. 2. Atelectasis. 3. Obstructive sleep apnea. 4. History of alpha 1 antitrypsin deficiency. 5. Multiple antibiotics. PLAN: Corticosteroids, antibiotics for ID, aerosol therapy, home CPAP. DVT and ulcer prophylaxis. HISTORY OF PRESENT ILLNESS: The patient had been ill last week, started on antibiotics today, ambulated a quite a bit and became acutely short of breath. Denied fever, chills, has not felt well. No definite sputum production. PAST MEDICAL HISTORY: 1. Alpha 1 antitrypsin deficiency heterozygous. 2. Obstructive lung disease/asthma. 3. JEAN on CPAP. MEDICATIONS: Zoloft, Prevacid, levalbuterol, allopurinol, Singulair. SOCIAL HISTORY: Positive tobacco distant past. Positive ETOH rare, lives with . FAMILY HISTORY: Negative for early lung disease. REVIEW OF SYSTEMS: No fever or chills. No nausea or vomiting. Positive shortness breath and cough. No loose stools. No increasing peripheral edema. Has hot intolerance, not cold. PHYSICAL EXAMINATION: VITAL SIGNS: Temperature 97.6, pulse 88, respirations 20, BP 157/77. EYES: Negative icterus. NECK: Negative JVD. LUNGS: Showed wheeze bilaterally. HEART: Regular. [facility] [address] [place] [address] CONSULTATION Name: MICHAEL MONTANA Room #: 218-P [facility] IN ..#: [id number] Admission: 08/07/17 Attend Phys: Gregory Rodriguez DO Discharge: Date of : 51 Report #: [id number] ABDOMEN: Bowel sounds present. EXTREMITIES: Show no clubbing or cyanosis. GENERAL: The patient was seen in the ER and discussed with . No emboli, mild infiltrate. LABORATORY DATA: BUN 10, creatinine 11, white count 8.6, hemoglobin 10.2, MCV 89.8 and platelets 212. We will follow closely with you. By: [id number] Asia Carrillo MD /nt
--- NOTE | ~2017-08-07 | 2DMMODE ---
[facility] [address] [place] [address] 2 D/M-MODE ECHOCARDIOGRAM Name: DAYANA MONTANAH Cuco Room #: 218-P [facility] IN ..#: [id number] Admission: 08/07/17 Attend Phys: Gregory Rodriguez, Discharge: Date of : 52 Date of Service: 08/08/17 1527 Report #: [id number] THIS REPORT FOR: //name// APPROVED REPORT Study performed: 08/08/2017 13:54:55 EXAM: Comprehensive 2D, Doppler, and color-flow Echocardiogram Patient Location: Bedside Room #: 218 Status: routine BSA: 2.15 HR: 93 bpm BP: 151/74 mmHg Other Information Study Quality: Adequate Indications COPD Pulmonary Hypertension 2D Dimensions RVDd: 27.17 mm LVEF(%): 60.07 (>50%) IVSd: 10.91 (7-11mm) LVOT Diam: 22.04 (18-24mm) LVDd: 45.77 mm PWd: 11.05 (7-11mm) Ascending Ao: 27.71 (22-36mm) LVDs: 31.17 (25-40mm) Aortic Root: 25.88 mm IVC: 27.00 mm Bautista's LVEF: 60.07 % Volumes Left Atrial Volume (Systole) Single Plane 4CH: 47.64 mL Single Plane 2CH: 45.53 mL LA ESV Index: 24.00 mL/m2 Aortic Valve AoV Peak Shelton.: 1.42 m/s AO Peak Gr.: 8.07 mmHg LVOT Max P.52 mmHg LVOT Max V: 1.17 m/s KRYSTIN Vmax: 3.15 cm2 Mitral Valve E/A Ratio: 1.3 MV Decel. Time: 178.98 ms [facility] [place] [address] 2 D/M-MODE ECHOCARDIOGRAM Name: MICHAEL MONTANA Cuco Room #: 218-P [facility] IN .R.#: [id number] Admission: 08/07/17 Attend Phys: Gregory Rodriguez, Discharge: Date of : 52 Date of Service: 08/08/17 1527 Report #: [id number] MV E Max Shelton.: 1.27 m/s MV A Shelton.: 0.96 m/s MV PHT: 51.90 ms IVRT: 69.20 ms Pulmonary Valve PV Peak Shelton.: 0.99 m/s PV Peak Gr.: 3.89 mmHg Pulmonary Vein P Vein S: 0.61 m/s P Vein A: 0.32 m/s P Vein D: 0.40 m/s P Vein A Dur.: 96.9 msec P Vein S/D Ratio: 1.52 Tricuspid Valve TR Peak Shelton.: 2.80 m/s TR Peak Gr.: 31.33 mmHg PA Pressure: 41.00 mmHg Left Ventricle The left ventricle is normal size. There is normal left ventricular wall thickness. The left ventricular systolic function is normal. The left ventricular ejection fraction is within the normal range. LVEF is 60-65%. The left ventricular diastolic function is normal. Right Ventricle The right ventricle is normal size. The right ventricular systolic function is normal. Atria The left atrium size is normal. The right atrium size is normal. Aortic Valve The aortic valve is normal in structure. No aortic regurgitation is present. There is no aortic valvular stenosis. Mitral Valve The mitral valve is normal in structure. Trace mitral regurgitation. No evidence of mitral valve stenosis. Tricuspid Valve The tricuspid valve is normal in structure. There is trace tricuspid regurgitation. Estimated PAP 41 mmHg. There is mild-moderate pulmonary hypertension. Pulmonic Valve [address] [address] 2 D/M-MODE ECHOCARDIOGRAM Name: MICHAEL MONTANA Room #: 218-P [facility] IN [facility]#: [id number] Admission: 08/07/17 Attend Phys: Gregory Rodriguez, Discharge: Date of : 52 Date of Service: 08/08/17 1527 Report #: [id number] The pulmonary valve is normal in structure. Trace pulmonic regurgitation. Great Vessels The aortic root is normal in size. IVC is dilated and collapses <50% with inspiration. Pericardium There is no pericardial effusion. <Conclusion> The left ventricle is normal size. LVEF is 60-65%. The right ventricle is normal size. The aortic valve is normal in structure. The mitral valve is normal in structure. Trace mitral regurgitation. The tricuspid valve is normal in structure. There is trace tricuspid regurgitation. Estimated PAP 41 mmHg. There is mild-moderate pulmonary hypertension. The pulmonary valve is normal in structure. Trace pulmonic regurgitation. The pulmonary valve is normal in structure. Trace pulmonic regurgitation. <ELECTRONICALLY SIGNED> By: Edinson Ontiveros MD 08/08/17 1527 1527 152 Edinson Ontiveros MD /INF
--- NOTE | ~2017-08-07 | HC ---
[facility] [address] [place] [address] CONSULTATION Name: MICHAEL MONTANA Room #: 218-P [facility] IN M.R.#: [id number] Admission: 08/07/17 Attend Phys: Gregory Rodriguez DO Discharge: Date of : 52 Report #: [id number] THIS REPORT FOR: //name// CC: Gregory Gómez REASON FOR CONSULTATION: I was asked to evaluate concerning exacerbation of his COPD, multiple drug allergies. HISTORY OF PRESENT ILLNESS: The patient was a 66-year-old with underlying history of alpha-1 antitrypsin deficiency, COPD, obstructive sleep apnea who presents with a 1-week history of increasing shortness of breath along with purulent sputum production. No fever, chills or sweats. She was placed on doxycycline end of last week with no improvement. She did recently come off her steroids about 2 weeks ago. No travel. No other exposure to ill persons. She has had issues with nursing home corticosteroids and wished to stay off them as much as possible. She feels that the environmental allergies seem to have triggered her this time. ALLERGIES: Multiple including PENICILLIN, CEPHALOSPORINS, LEVAQUIN, SULFA. She did get rash to DOXYCYCLINE in the past, although tolerated it this time. MEDICATIONS: As noted on her MAR, now including azithromycin. She is on Solu-Medrol. She has tolerated carbapenems and aztreonam. PAST MEDICAL HISTORY: Significant for her pulmonary issues, total hip arthroplasty for ____ necrosis, osteoporosis, depression, glaucoma, C. difficile colitis, right shoulder rotator cuff surgery with replacement, bilateral total hip arthroplasties. FAMILY HISTORY: Noncontributory. SOCIAL HISTORY: Past smoker. No significant alcohol intake REVIEW OF SYSTEMS: No chest pain, GI or complaints. PHYSICAL EXAMINATION: VITAL SIGNS: Afebrile and hemodynamically stable. Oxygen saturation was 94% on room air. She does use CPAP at night. GENERAL: Cushingoid. Alert, cooperative. No distress. Moderately obese. SKIN: Unremarkable. LYMPH: Unremarkable. HEENT: Unremarkable. NECK: Supple. LUNGS: Scattered wheezes bilaterally. No consolidation. HEART: Regular. ABDOMEN: Soft and nontender. [facility] [address] [place] [address] CONSULTATION Name: MICHAEL MONTANA Room #: 218-P [facility] IN [facility].#: [id number] Admission: 08/07/17 Attend Phys: Gregory Rodriguez DO Discharge: Date of : 52 Report #: [id number] EXTREMITIES: Minimal edema. LABORATORY STUDIES: Sodium 140, potassium 4, bicarbonate 24, creatinine 0.8, hemoglobin 11.7, WBC 5.7, platelet count 217,000. Differential unremarkable. CT scan of the chest, no acute process. Lactate 2. Liver function test normal. IMPRESSION AND PLAN: A 66-year-old with alpha-1 antitrypsin deficiency, chronic obstructive pulmonary disease, obstructive sleep apnea who has been essentially steroid-dependent for more than a year. She has had multiple side effects from her corticosteroids and voices to stay off them if possible. Now with an exacerbation of her chronic obstructive pulmonary disease and associated bronchitis. She has multiple drug allergies which impact treatment options. Would recommend checking viral respiratory panel. Continue with azithromycin for atypical organisms and corticosteroids as needed to get her reactive airways under control. <ELECTRONICALLY SIGNED> By: Kel Mccarty MD 08/08/17 1447 0852 0939 Kel Mccarty MD /nt
[2017-08-07 16:05] LABS: ABG SAMPLE TYPE ARTERIAL; BE(vivo) -2.9 mmol/L (-2 to +3); HCO3 17.4 mmol/L (22.0-26.0); LACTATE 2.72 mmol/L (0.5-2.0); O2Hb 98.4 % (92.0-98.0); PCO2 20.4 mmHg (35.0-45.0); PO2 157.3 mmHg (80.0-100.0); pH 7.548 (7.360-7.450); sO2 99.3 % (92.0-98.0)
[2017-08-07 16:06] LABS: ABSOLUTE NEUTROPHILS 5.4 thou/uL (1.4-8.2); BASOPHILS 0.4 % (0.0-2.0); EOSINOPHILS 0.8 % (0.0-3.0); HEMATOCRIT 30.6 % (37.0-47.0); HEMOGLOBIN 10.2 gm/dL (12.0-15.0); LYMPHOCYTES 29.6 % (24.0-44.0); MCHC 33.4 g/dL (28.0-37.0); MCV 89.8 fL (80.0-100.0); MONOCYTES 6.3 % (1.0-8.0); PLATELET COUNT 212 thou/uL (150-400); POLYS 62.9 % (36.0-66.0); RBC 3.41 mil/uL (4.20-5.00); RDW 13.4 % (10.5-14.5); WBC 8.6 thou/uL (4.0-11.0)
[2017-08-07 16:06] LABS: Pressure Support 6 cm H20; STICK SITE R.RADIAL
[2017-08-07 16:10] LABS: MANUAL DIFF NO
[2017-08-07 16:17] LABS: ANION GAP 14 mmol/L (7-16); BUN 10 mg/dL (7-18); CALCIUM 9.6 mg/dL (8.5-10.1); CHLORIDE 104 mmol/L (98-107); CO2 21 mmol/L (21-32); CREATININE 1.1 mg/dL (0.6-1.0); GLUCOSE 150 mg/dL (74-106); POTASSIUM 3.5 mmol/L (3.5-5.1); SODIUM 139 mmol/L (136-145)
[2017-08-07 16:19] LABS: PROTIME 9.7 Seconds (9.3-11.4)
[2017-08-07 16:26] LABS: ALBUMIN 3.6 g/dL (3.4-5.0); ALKALINE PHOSPHATASE 63 U/L (46-116); SGOT 24 U/L (15-37); SGPT 25 U/L (30-65); TOTAL BILIRUBIN 0.6 mg/dL (<0.1-1.0); TOTAL PROTEIN 7.3 g/dL (6.4-8.2); TROPONIN-I < 0.04 ng/mL (<0.04-0.07)
[2017-08-07 18:33] VITALS: BP 116/62
[2017-08-07 18:50] VITALS: BP 154/68
[2017-08-07 19:18] VITALS: BP 157/77
[2017-08-07 23:32] VITALS: BP 149/86
[2017-08-08 03:19] VITALS: BP 158/91
[2017-08-08 06:11] LABS: ABSOLUTE NEUTROPHILS 4.7 thou/uL (1.4-8.2); BASOPHILS 0.1 % (0.0-2.0); HEMATOCRIT 35.1 % (37.0-47.0); HEMOGLOBIN 11.7 gm/dL (12.0-15.0); MCH 29.7 pg (26.0-34.0); MCHC 33.4 g/dL (28.0-37.0); MONOCYTES 3.1 % (1.0-8.0); PLATELET COUNT 217 thou/uL (150-400); POLYS 83.8 % (36.0-66.0); RBC 3.95 mil/uL (4.20-5.00); RDW 13.2 % (10.5-14.5); WBC 5.7 thou/uL (4.0-11.0)
[2017-08-08 06:22] LABS: MANUAL DIFF NO
[2017-08-08 06:24] LABS: CALCIUM 9.3 mg/dL (8.5-10.1); CREATININE 0.8 mg/dL (0.6-1.0)
[2017-08-08 08:00] VITALS: BP 162/99
[2017-08-08 12:00] VITALS: BP 151/74
[2017-08-08 16:00] VITALS: BP 122/58
[2017-08-08 19:49] VITALS: BP 158/63
[2017-08-09] VITALS (12 sets, daily range): BP systolic 82–174; BP diastolic 16–99
[2017-08-09 02:51] LABS: HEMATOCRIT 31.4 % (37.0-47.0); HEMOGLOBIN 10.5 gm/dL (12.0-15.0); MCHC 33.5 g/dL (28.0-37.0); MCV 89.7 fL (80.0-100.0); RBC 3.5 mil/uL (4.20-5.00); RDW 13.4 % (10.5-14.5); WBC 7.9 thou/uL (4.0-11.0)
[2017-08-09 02:52] LABS: CALCIUM 8.6 mg/dL (8.5-10.1); CREATININE 1.2 mg/dL (0.6-1.0); POTASSIUM 3.2 mmol/L (3.5-5.1)
[2017-08-10] VITALS (10 sets, daily range): BP systolic 121–166; BP diastolic 53–94
[2017-08-10 05:47] LABS: HEMATOCRIT 36.2 % (37.0-47.0); HEMOGLOBIN 11.8 gm/dL (12.0-15.0); MCH 28.9 pg (26.0-34.0); MCHC 32.7 g/dL (28.0-37.0); MCV 88.4 fL (80.0-100.0); RBC 4.1 mil/uL (4.20-5.00); WBC 9.2 thou/uL (4.0-11.0)
[2017-08-10 05:51] LABS: CALCIUM 9.6 mg/dL (8.5-10.1); CREATININE 0.9 mg/dL (0.6-1.0); POTASSIUM 4.2 mmol/L (3.5-5.1)
[2017-08-11] VITALS (11 sets, daily range): BP systolic 129–156; BP diastolic 33–82
[2017-08-11 03:29] LABS: HEMATOCRIT 34.1 % (37.0-47.0); HEMOGLOBIN 11.3 gm/dL (12.0-15.0); MCH 29.5 pg (26.0-34.0); MCV 89.2 fL (80.0-100.0); RBC 3.82 mil/uL (4.20-5.00); RDW 13.2 % (10.5-14.5); WBC 10.5 thou/uL (4.0-11.0)
[2017-08-11 03:50] LABS: CALCIUM 9.1 mg/dL (8.5-10.1); POTASSIUM 4.2 mmol/L (3.5-5.1)
[2017-08-11 23:13] LABS: INFLUENZA B Negative (Negative); METAPNEUMOVIRUS Negative (Negative)
[2017-08-12 04:53] VITALS: BP 161/71
[2017-08-12 05:09] LABS: HEMATOCRIT 33.5 % (37.0-47.0); HEMOGLOBIN 11.1 gm/dL (12.0-15.0); MCH 29.2 pg (26.0-34.0); MCHC 33.2 g/dL (28.0-37.0); MCV 87.9 fL (80.0-100.0); RBC 3.81 mil/uL (4.20-5.00); RDW 13.1 % (10.5-14.5); WBC 11.8 thou/uL (4.0-11.0)
[2017-08-12 05:21] LABS: CALCIUM 8.8 mg/dL (8.5-10.1); CREATININE 0.9 mg/dL (0.6-1.0); POTASSIUM 3.7 mmol/L (3.5-5.1)
[2017-08-12 08:17] VITALS: BP 146/67
[2017-08-12 11:38] VITALS: BP 146/70
[2017-08-12 21:38] VITALS: BP 147/67
[2017-08-13 11:09] VITALS: BP 127/44
[2017-08-13 15:35] VITALS: BP 142/61
[2017-08-13 19:19] VITALS: BP 160/86
[2017-08-13 23:20] VITALS: BP 152/74
[2017-08-14 03:58] VITALS: BP 138/64
[2017-08-14 08:06] VITALS: BP 160/76
[2017-08-14 11:56] VITALS: BP 156/77
[2017-08-14 16:24] VITALS: BP 139/58
[2017-08-14 20:06] VITALS: BP 142/63
[2017-08-15 03:49] LABS: HEMATOCRIT 35.7 % (37.0-47.0); HEMOGLOBIN 11.8 gm/dL (12.0-15.0); MCH 28.8 pg (26.0-34.0); MCV 87.3 fL (80.0-100.0); RBC 4.09 mil/uL (4.20-5.00); RDW 13.4 % (10.5-14.5); WBC 12.5 thou/uL (4.0-11.0)
[2017-08-15 04:04] LABS: POTASSIUM 4.1 mmol/L (3.5-5.1)
[2017-08-15 04:41] VITALS: BP 139/53
[2017-08-15 08:00] VITALS: BP 129/64
[2017-08-15 11:15] VITALS: BP 160/83
[2017-08-15 15:09] VITALS: BP 138/70
[2017-08-15 16:13] VITALS: BP 138/70
[2017-08-15 20:10] VITALS: BP 153/67
[2017-08-16 07:31] VITALS: BP 116/57
[2017-08-16 11:58] VITALS: BP 152/71
[2017-08-16 12:33] VITALS: BP 138/70
[2017-08-16] MEDS ORDERED: MUCINEX DM ER1 EAC1 PO (14:24)
[2017-08-16] MEDS ORDERED: PREDNISONE 10 M10 M1 PO (14:25)
[2017-08-16 14:33] VITALS: BP 138/70
== END 2017-08-16 15:30 | disposition home health service (06) | DRG 871 ==
LOC: ER 15:35 → 2N 17:10 → EROBS 17:10 → 2N 18:22 → ICU 08-09 09:46 → 2N 08-13 08:00 → ENTRNSPT 08-16 15:06 → 2N 08-16 15:30 → EDTRNSPTSTS 08-16 15:36
PROVIDERS: Family Medicine; Hospitalist; Physician Assistant; Specialist
PROC: 05H633Z Insertion of Infusion Device into Left Subclavian Vein, Percutaneous Approach (ICD-10-PCS; 2017-08-07)
PROC: B547ZZA Ultrasonography of Left Subclavian Vein, Guidance (ICD-10-PCS; 2017-08-07)
PROC: 5A09357 Assistance with Respiratory Ventilation, Less than 24 Consecutive Hours, Continuous Positive Airway Pressure (ICD-10-PCS; principal; 2017-08-11)
DX: A41.9 Sepsis, unspecified organism (principal); J18.9 Pneumonia, unspecified organism; J96.01 Acute respiratory failure with hypoxia; J44.1 Chronic obstructive pulmonary disease with (acute) exacerbation; J98.11 Atelectasis; Z68.41 Body mass index [BMI] 40.0-44.9, adult; J44.0 Chronic obstructive pulmonary disease with (acute) lower respiratory infection; G47.33 Obstructive sleep apnea (adult) (pediatric); M81.0 Age-related osteoporosis without current pathological fracture; F32.9 Major depressive disorder, single episode, unspecified; H40.9 Unspecified glaucoma; Z96.643 Presence of artificial hip joint, bilateral; E88.01 Alpha-1-antitrypsin deficiency; M10.9 Gout, unspecified; E11.9 Type 2 diabetes mellitus without complications; Z96.611 Presence of right artificial shoulder joint; J20.9 Acute bronchitis, unspecified; K21.9 Gastro-esophageal reflux disease without esophagitis; E66.9 Obesity, unspecified; Z79.899 Other long term (current) drug therapy; Z88.0 Allergy status to penicillin; Z88.2 Allergy status to sulfonamides; Z88.8 Allergy status to other drugs, medicaments and biological substances; Z87.891 Personal history of nicotine dependence; Z79.52 Long term (current) use of systemic steroids; Z98.49 Cataract extraction status, unspecified eye; Z86.711 Personal history of pulmonary embolism; Z28.21 Immunization not carried out because of patient refusal
CPT/HCPCS: 10078; 10081; 27001

== ENCOUNTER → 2017-10-04 | Outpatient (CLI) | payer OTHER ==
[~2017-10-04] MED LIST changes: +MUCINEX DM ER1 EAC1 PO; +VITAMIN D1000 UNI1 PO
== END ==
LOC: RAD 15:25
DX: R06.00 Dyspnea, unspecified (principal)

== ENCOUNTER 2017-10-21 11:56 | Inpatient (IN) | payer OTHER ==
[~2017-10-21] VITALS: Ht 162.6 cm; Wt 116.1 kg
--- NOTE | ~2017-10-21 | 2DMMODE ---
[facility] [address] [address] 2 D/M-MODE ECHOCARDIOGRAM Name: MICHAEL MONTANA Room #: 447-P ADM IN M.R.#: [id number] Admission: 10/21/17 Attend Phys: Gal Clinton MD Discharge: Date of : 52 Date of Service: 10/27/17 1420 Report #: [id number] THIS REPORT FOR: //name// APPROVED REPORT Study performed: 10/27/2017 13:23:37 EXAM: Comprehensive 2D, Doppler, and color-flow Echocardiogram Patient Location: Echo lab Room #: 447 Status: routine BSA: 2.17 HR: 75 bpm BP: 141/59 mmHg Rhythm: Irregular Other Information Study Quality: Adequate Technically limited study due to patient coughing and moving. Indications PA pressures. Hx: COPD, morbid obesity. (Complete echo done 07/2017) Tricuspid Valve TR Peak Shelton.: 2.19 m/s TR Peak Gr.: 19.14 mmHg Left Ventricle There is normal LV segmental wall motion. Left ventricular systolic function is normal. LVEF is 60-65%. Right Ventricle The right ventricle is normal size. The right ventricular systolic function is normal. Atria The left atrium size is normal. The right atrium size is normal. Aortic Valve The aortic valve is normal in structure. No aortic regurgitation is present. [facility] [address] [place] [address] 2 D/M-MODE ECHOCARDIOGRAM Name: MICHAEL MONTANA Room #: 447-P ADM IN M.R.#: [id number] Admission: 10/21/17 Attend Phys: Gal Clinton MD Discharge: Date of : 52 Date of Service: 10/27/17 142 Report #: [id number] Mitral Valve The mitral valve is normal in structure. Mild mitral regurgitation. Tricuspid Valve The tricuspid valve is normal in structure. Pulmonic Valve The pulmonary valve is normal in structure. Trace pulmonic regurgitation. Estimated PAP is 19mmHg plus the right atrial pressure. Great Vessels IVC is not well visualized. Pericardium There is no pericardial effusion. <Conclusion> Left ventricular systolic function is normal. LVEF is 60-65%. The right ventricle is normal size. The left atrium size is normal. The aortic valve is normal in structure. The mitral valve is normal in structure. Mild mitral regurgitation. The tricuspid valve is normal in structure. The pulmonary valve is normal in structure. Trace pulmonic regurgitation. Estimated PAP is 19mmHg plus the right atrial pressure. There is no pericardial effusion. <ELECTRONICALLY SIGNED> By: Edinson Ontiveros MD 10/27/17 1420 142 1420 Edinson Ontiveros MD /INF
--- NOTE | ~2017-10-21 | HC ---
[facility] [place] [address] CONSULTATION Name: MICHAEL MONTANA Room #: 447-P ADM IN M.R.#: [id number] Admission: 10/21/17 Attend Phys: Gal Clinton MD Discharge: Date of : 52 Report #: [id number] THIS REPORT FOR: //name// CC: Gal Gómez DATE OF SERVICE: 10/25/2017 ATTENDING PHYSICIAN: Dr. Gal Clinton. CONSULTATION REQUESTED BY: Dr. Asia Carrillo. REASON FOR CONSULTATION: Question antibiotic need. HISTORY OF PRESENT ILLNESS: The patient is a 67-year-old white woman known to me from multiple previous hospitalizations at [facility], readmitted at the present time with acute respiratory distress, uncontrolled cough. The patient denies having had fevers, nausea, vomiting, diarrhea. PAST MEDICAL HISTORY: Alpha 1 antitrypsin deficiency. COPD. Osteoarthritis. Glaucoma. Previous episode of C. difficile colitis. Status post bilateral hip replacement for avascular necrosis. Right shoulder replacement in 2016. DRUG ALLERGIES: Intolerant and allergic to PENICILLIN, SULFA, DOXYCYCLINE, CEFOTETAN, LEVOFLOXACIN. Intolerant to MORPHINE SULFATE as well. SOCIAL AND FAMILY HISTORY: See H and P. MEDICATIONS: The patient is currently on treatment with prednisone 20 mg p.o. b.i.d., ergocalciferol 50,000 units weekly, ferrous sulfate 325 mg daily, benzonatate 100 mg t.i.d., guaifenesin 600 b.i.d., amlodipine besylate 5 mg daily, pantoprazole 40 mg daily, Atrovent, albuterol inhalation treatments every 4 hours, insulin release per sliding scale, enoxaparin 40 mg subQ at bedtime, sertraline 100 mg at bedtime, p.r.n. glucose-glucagon, p.r.n. hydrocodone bitartrate one to two tablets q. 4 h. if needed. Polyethylene glycol. She has received methylprednisolone as well. REVIEW OF SYSTEMS: See H and P and as above and essentially noncontributory besides persistent productive cough. PHYSICAL EXAMINATION: GENERAL: A well-developed woman, not toxic looking, with paroxysms of cough. VITAL SIGNS: Temperature 98.2, pulse 76, respirations 20, BP 150/64, height 5 feet 4 inches, weight 256 pounds. O2 saturation 97% at room air. HEENMT: Within range. NECK: Supple, no thyromegaly. [facility] [address] [place] [address] CONSULTATION Name: MICHAEL MONTANA Room #: [facility] IN .R.#: [id number] Admission: 10/21/17 Attend Phys: Gal Clinton MD Discharge: Date of : 52 Report #: [id number] BREASTS: Deferred. LUNGS: Decreased breath sounds, few wheezes. HEART: S1, S2. No gallop or murmur. ABDOMEN: Obese, soft, no masses or megaly. GENITALIA AND RECTAL: Deferred. EXTREMITIES: No clubbing, cyanosis. NEUROLOGIC: Grossly within normal limits. LABORATORY DATA: Sodium 140, potassium 4.4, BUN 21, creatinine 0.9, glucose 170, total protein 6, albumin 3.1. D-dimer is normal. WBC 7500, hemoglobin 12 g/dL and platelets 191,000. The white blood cell count differential revealed 87% segmented neutrophils. MICROBIOLOGY DATA: Blood cultures on 10/19/2017 negative. Nasopharyngeal smear negative for influenza A and B. RADIOLOGY EVALUATION: Chest x-ray revealed no pulmonary infiltrate, mild enlargement of the cardiac silhouette. Vertebral bodies height maintained. ASSESSMENT: 1. Acute exacerbation of chronic obstructive pulmonary disease. 2. Alpha-1 antitrypsin deficiency. 3. Obesity. 4. Status post bilateral hip replacement and right shoulder replacement. 5. Multiple drug allergies. SUGGESTIONS: At present, the patient is not septic looking and her main problem appears to be that of paroxysms of cough. Consequently, recommend increasing Tessalon Perles to 200 mg p.o. t.i.d. Obtain ESR and CRP and if those normal, it confirms my suspicion that no active infectious process is going on, consequently no need for antibiotics. Dr. Carrillo, thank you for requesting my suggestions in the care of your patient. <ELECTRONICALLY SIGNED> By: Juan Miller MD 10/27/17 1433 1141 1929 Juan Miller MD /nt
--- NOTE | ~2017-10-21 | EKG ---
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 : 1950 Requested By: Christine Vences Order Number: [id number] MD: Braeden Hillman Measurements Intervals [place] Rate: 110 P: -13 NC: 155 QRS: -55 QRSD: 102 T: 72 QT: 359 QTc: 486 Interpretive Statements Sinus tachycardia Multiform ventricular premature complexes Left anterior fascicular block Borderline ST depression, lateral leads Borderline prolonged QT interval Compared to ECG 08/31/2017 12:29:58 Ventricular premature complex(es) now present ST (T wave) deviation now present Electronically Signed On 10-22-2017 9:45:45 [employer] by Braeden Hillman [email or web address] <ELECTRONICALLY SIGNED> By: Braeden Hillman MD 10/22/17 0945 1303 1303 Braeden Hillman MD /EPI
--- NOTE | ~2017-10-21 | HC ---
[facility] [place] [address] CONSULTATION Name: MICHAEL MONTANA Room #: 447-P ADM IN M.R.#: [id number] Admission: 10/21/17 Attend Phys: Gal Clinton MD Discharge: Date of : 52 Report #: [id number] THIS REPORT FOR: //name// CC: Gal Gómez PRIMARY CARE PHYSICIAN: Hank Gómez M.D. REFERRING PHYSICIAN: Gal Clinton M.D. REASON FOR REFERRAL: COPD exacerbation. HISTORY OF PRESENT ILLNESS: The patient is a 67-year-old white female who presents to the Emergency Room with acute respiratory distress. A pulmonary consultation was requested. The patient is followed longitudinally by Dr. Carrillo. She has known alpha 1 antitrypsin deficiency. She has been on replacement with Aralast for many years until insurance refused to pay for the medications. She has done very well up until 2014 when she started to develop recurrent COPD exacerbation. Her last hospitalization was in July 2017. She was in her usual state of health until the day of admission. The patient became acutely dyspneic, distressed, short of breath and wheezing. Mild symptoms started several days prior to presentation. Otherwise, denies any chest pain, hemoptysis, nausea, vomiting or diarrhea. PAST MEDICAL HISTORY: Notable for alpha-1 antitrypsin deficiency; COPD; severe impairment; osteoarthritis; glaucoma; JEAN, on CPAP; history of pulmonary embolus; gout; gastroesophageal reflux disease; multiple hospitalizations for COPD and pneumonia in the past and cataracts. PAST SURGICAL HISTORY: Include rotator cuff surgery involving the right shoulder, bilateral hip replacement due to avascular necrosis, tonsillectomy and tubal ligation. ALLERGIES: To MORPHINE, which causes severe hallucinations; CEPHALOSPORINS, causes a rash; FLUOROQUINOLONE, causes rash; PENICILLIN, causes rash; SULFA, causes rash and DOXYCYCLINE, reactions not specified. HOME MEDICATIONS: Include recent course of prednisone, Xopenex, Prevacid, Zoloft and Mucinex. FAMILY HISTORY: Notable for both parents . SOCIAL HISTORY: The patient has smoked but quit in 1981. She denies any alcohol use. She is . [facility] [address] [place] [address] CONSULTATION Name: MICHAEL MONTANA Room #: 447-P [facility] IN [facility].#: [id number] Admission: 10/21/17 Attend Phys: Gal Clinton MD Discharge: Date of : 51 Report #: [id number] REVIEW OF SYSTEMS: As mentioned above, otherwise 10-point system review negative. PHYSICAL EXAMINATION: GENERAL: She is awake, alert, in moderate distress. She appears moderately dyspneic. VITAL SIGNS: Temperature is 98 degrees Fahrenheit, pulse is 90, respiratory rate is 20, blood pressure 165/66 mmHg and saturation 98%. HEENT: Normocephalic and atraumatic. NECK: Supple, without any lymphadenopathy or thyromegaly. CHEST: Breath sounds are decreased bilaterally with mild expiratory wheezes. CARDIOVASCULAR: Heart sounds are distant. No obvious murmurs or gallop. Pulses are 2+/4+ bilaterally. ABDOMEN: Soft and nontender. No organomegaly or masses felt. GENITOURINARY: Deferred. RECTAL: Deferred. EXTREMITIES: There is edema, cyanosis or clubbing. RADIOLOGICAL DATA: Portable chest x-ray is clear. CT lumbar spine shows multiple lumbar spondylosis without fracture. LABORATORY DATA: Influenza A and B is negative. Electrolytes are normal. WBC 7000, hemoglobin is 12.1 and platelets are normal. Arterial blood gas revealed pH 7.45, pCO2 of 29 and pO2 126 on 3 liters of O2. IMPRESSION: 1. Acute hypoxic respiratory failure in this 67-year-old white female. She has history of chronic obstructive pulmonary disease/asthma in the past. Currently, she has an exacerbation. Chest x-ray does not show any obvious infiltrates though she has pneumonia. Viral syndrome may be most likely. 2. Alpha-1 antitrypsin deficiency. A recent pulmonary functions performed in the pulmonary office in May of 2017 shows FEV1 of 2.26 liters, 97% predicted; FVC measured 3.0 liter, 103% predicted and FEV1/FVC ratio 75%. The spirometry appears to be normal. 3. Obstructive sleep apnea, on continuous positive airway pressure. RECOMMENDATIONS: Agree with corticosteroids, bronchodilators and broad-spectrum antibiotics. Wean O2 for saturation 98%. DVT and GI prophylaxis will be addressed. Thank you for this consultation. <ELECTRONICALLY SIGNED> By: Sven Marie MD 10/23/17 1600 1430 7010 Sven Marie MD /nt
[~2017-10-21 11:56] MED LIST changes: +LIDODERM1 EACH TOP
[2017-10-21 11:57] VITALS: BP 160/103
[2017-10-21 12:18] LABS: ABSOLUTE NEUTROPHILS 9.8 thou/uL (1.4-8.2); BASOPHILS 1.1 % (0.0-2.0); EOSINOPHILS 0.5 % (0.0-3.0); HEMATOCRIT 40.7 % (37.0-47.0); HEMOGLOBIN 13.4 gm/dL (12.0-15.0); LYMPHOCYTES 29.2 % (24.0-44.0); MCH 27.5 pg (26.0-34.0); MCV 83.4 fL (80.0-100.0); MONOCYTES 7.5 % (1.0-8.0); PLATELET COUNT 281 thou/uL (150-400); POLYS 61.7 % (36.0-66.0); RBC 4.88 mil/uL (4.20-5.00); RDW 14.8 % (10.5-14.5); WBC 15.9 thou/uL (4.0-11.0)
[2017-10-21 12:22] LABS: ANION GAP 13 mmol/L (7-16); BUN 15 mg/dL (7-18); CALCIUM 9.7 mg/dL (8.5-10.1); CHLORIDE 106 mmol/L (98-107); CO2 24 mmol/L (21-32); GLUCOSE 131 mg/dL (74-106); POTASSIUM 3.7 mmol/L (3.5-5.1); SODIUM 143 mmol/L (136-145)
[2017-10-21 12:30] LABS: TROPONIN-I < 0.04 ng/mL (<0.06)
[2017-10-21 14:15] VITALS: BP 148/69
[2017-10-21 14:28] VITALS: BP 132/45
[2017-10-21 14:45] VITALS: BP 152/62
[2017-10-21 19:31] VITALS: BP 152/53
[2017-10-22 03:12] LABS: HEMATOCRIT 36.1 % (37.0-47.0); HEMOGLOBIN 12.1 gm/dL (12.0-15.0); MCH 27.7 pg (26.0-34.0); MCHC 33.4 g/dL (28.0-37.0); MCV 82.8 fL (80.0-100.0); RBC 4.36 mil/uL (4.20-5.00); RDW 14.6 % (10.5-14.5)
[2017-10-22 03:28] LABS: CALCIUM 9.2 mg/dL (8.5-10.1); CREATININE 0.8 mg/dL (0.6-1.0); POTASSIUM 4.2 mmol/L (3.5-5.1)
[2017-10-22 05:31] VITALS: BP 139/62
[2017-10-22 08:00] VITALS: BP 165/66
[2017-10-22 16:00] VITALS: BP 155/73
[2017-10-22 20:25] VITALS: BP 164/58
[2017-10-23 05:25] VITALS: BP 153/83
[2017-10-23 08:00] VITALS: BP 163/79
[2017-10-23 16:00] VITALS: BP 167/70
[2017-10-23 20:03] VITALS: BP 174/59
[2017-10-24 08:10] VITALS: BP 166/71
[2017-10-24 16:45] VITALS: BP 172/53
[2017-10-24 19:46] VITALS: BP 137/66
[2017-10-24 20:27] VITALS: BP 116/81
[2017-10-25 03:55] VITALS: BP 153/75
[2017-10-25 06:03] LABS: HEMATOCRIT 36.3 % (37.0-47.0); MCH 27.4 pg (26.0-34.0); MCHC 33.1 g/dL (28.0-37.0); MCV 82.9 fL (80.0-100.0); PLATELET COUNT 191 thou/uL (150-400); RBC 4.38 mil/uL (4.20-5.00); RDW 14.7 % (10.5-14.5); WBC 7.5 thou/uL (4.0-11.0)
[2017-10-25 06:18] LABS: ALBUMIN 3.1 g/dL (3.4-5.0); CALCIUM 8.7 mg/dL (8.5-10.1); CREATININE 0.9 mg/dL (0.6-1.0); POTASSIUM 4.4 mmol/L (3.5-5.1); TOTAL BILIRUBIN 0.3 mg/dL (<0.1-1.0)
[2017-10-25 06:49] LABS: ABSOLUTE NEUTROPHILS 6.6 thou/uL (1.4-8.2); ATYPICAL LYMPHS 1 %
[2017-10-25 07:03] LABS: ANISOCYTOSIS SLIGHT
[2017-10-25 08:00] VITALS: BP 161/72
[2017-10-25 16:00] VITALS: BP 151/54
[2017-10-25 20:13] VITALS: BP 150/64
[2017-10-26 08:25] VITALS: BP 154/56
[2017-10-26 15:44] VITALS: BP 144/57
[2017-10-26 20:00] VITALS: BP 158/68
[2017-10-27 00:08] LABS: ADENOVIRUS Negative (Negative); INFLUENZA A Negative (Negative); INFLUENZA B Negative (Negative); METAPNEUMOVIRUS Negative (Negative); PARAINFLUENZA 1 Negative (Negative); PARAINFLUENZA 2 Negative (Negative); PARAINFLUENZA 3 Negative (Negative); RHINOVIRUS Negative (Negative); RSV A Negative (Negative); RSV B Negative (Negative)
[2017-10-27 04:30] VITALS: BP 131/63
[2017-10-27 07:55] VITALS: BP 141/59
[2017-10-27 17:15] VITALS: BP 188/79
[2017-10-27 20:03] VITALS: BP 145/55
[2017-10-27 23:04] VITALS: BP 128/51
[2017-10-28 03:10] VITALS: BP 146/59
[2017-10-28 09:36] VITALS: BP 141/50
[2017-10-28 16:33] VITALS: BP 129/49
[2017-10-28 20:25] VITALS: BP 137/60
[2017-10-29 04:39] VITALS: BP 134/58
[2017-10-29 08:00] VITALS: BP 139/69
[2017-10-29] MEDS ORDERED: IRON325 PO (12:59)
[2017-10-29] MEDS ORDERED: AMLODIPINE BESYL5 M1 PO (13:00)
[2017-10-29] MEDS ORDERED: PREDNISONE 10 M10 MG PO (13:04)
[2017-10-29 13:12] VITALS: BP 139/69
[2017-10-29] MEDS ORDERED: HYDROCODONE-CH473 M1 PO ×2 (13:46→13:51)
[2017-10-29] MEDS ORDERED: TESSALON PERLE100 MG PO (13:51)
[2018-04-12] MEDS ORDERED: MUCINEX600 MG PO (15:14)
[2018-04-12] MEDS ORDERED: PREVACID15 MG PO (15:14)
[2018-04-12] MEDS ORDERED: SEROQUEL 50 MG50 MG PO (15:15)
[2018-04-12] MEDS ORDERED: PREDNISONE 5 MG5 M1 (15:16)
[2018-04-12] MEDS ORDERED: XOPENEX1.25 MG/3 INH (15:17)
[2018-04-12] MEDS ORDERED: XOPENEX HFA15 GM INH (15:18)
== END 2017-10-29 14:10 | disposition home or self-care (01) | DRG 189 ==
LOC: ER 11:56 → EROBS 14:03 → 4S 14:03
PROVIDERS: Emergency Medicine; Hospitalist; Internal Medicine Pulmonary Disease
PROC: 02HV33Z Insertion of Infusion Device into Superior Vena Cava, Percutaneous Approach (ICD-10-PCS; principal; 2017-10-27)
DX: J96.01 Acute respiratory failure with hypoxia (principal); J44.1 Chronic obstructive pulmonary disease with (acute) exacerbation; J45.901 Unspecified asthma with (acute) exacerbation; Z68.41 Body mass index [BMI] 40.0-44.9, adult; E88.01 Alpha-1-antitrypsin deficiency; M10.9 Gout, unspecified; K21.9 Gastro-esophageal reflux disease without esophagitis; H40.9 Unspecified glaucoma; E11.9 Type 2 diabetes mellitus without complications; F32.9 Major depressive disorder, single episode, unspecified; Z96.611 Presence of right artificial shoulder joint; M19.90 Unspecified osteoarthritis, unspecified site; G47.33 Obstructive sleep apnea (adult) (pediatric); E66.9 Obesity, unspecified; D72.829 Elevated white blood cell count, unspecified; G89.29 Other chronic pain; M54.9 Dorsalgia, unspecified; Z96.643 Presence of artificial hip joint, bilateral; Z86.711 Personal history of pulmonary embolism; Z79.899 Other long term (current) drug therapy; Z98.49 Cataract extraction status, unspecified eye; Z88.1 Allergy status to other antibiotic agents; Z88.6 Allergy status to analgesic agent; Z88.2 Allergy status to sulfonamides; Z87.891 Personal history of nicotine dependence
CPT/HCPCS: 10100; 27000

== ENCOUNTER 2017-11-14 12:06 | Inpatient (IN) | payer OTHER ==
[~2017-11-14] VITALS: Ht 162.6 cm; Wt 116.1 kg
--- NOTE | ~2017-11-14 | EKG ---
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 : 1950 Requested By: Kel Sherman Order Number: [id number] MD: Ross Tejeda Measurements Intervals [place] Rate: 105 P: -11 VA: 148 QRS: -78 QRSD: 103 T: 80 QT: 355 QTc: 470 Interpretive Statements Sinus tachycardia Ventricular premature complex Left anterior fascicular block Abnormal R-wave progression, late transition Borderline ST depression, lateral leads Baseline wander in lead(s) II Compared to ECG 10/21/2017 13:03:25 No significant changes Electronically Signed On 11-14-2017 17:38:58 FREIGHT CAR BUILDER by Ross Tejeda [email or web address] <ELECTRONICALLY SIGNED> By: Ross Tejeda MD, [facility] 11/14/17 1738 1238 1238 Ross Tejeda MD, FAC /EPI
[~2017-11-14 12:06] MED LIST changes: +AMLODIPINE BESYL5 M1 PO; +HYDROCODONE-CH473 M1 PO
[2017-11-14 12:56] LABS: BE(vivo) -2.1 mmol/L (-2 to +3); HCO3 19.1 mmol/L (22.0-26.0); PCO2 24.5 mmHg (35.0-45.0); PO2 96.7 mmHg (80.0-100.0)
[2017-11-14 13:17] LABS: ABSOLUTE NEUTROPHILS 4.3 thou/uL (1.4-8.2); BASOPHILS 0.6 % (0.0-2.0); EOSINOPHILS 0.9 % (0.0-3.0); HEMATOCRIT 40.1 % (37.0-47.0); HEMOGLOBIN 13.3 gm/dL (12.0-15.0); LYMPHOCYTES 34.1 % (24.0-44.0); MCH 27.3 pg (26.0-34.0); MCHC 33.3 g/dL (28.0-37.0); MCV 82.1 fL (80.0-100.0); MONOCYTES 7.7 % (1.0-8.0); PLATELET COUNT 141 thou/uL (150-400); POLYS 56.7 % (36.0-66.0); RBC 4.88 mil/uL (4.20-5.00); RDW 16.7 % (10.5-14.5); WBC 7.7 thou/uL (4.0-11.0)
[2017-11-14 13:25] LABS: ANION GAP 11 mmol/L (7-16); BUN 15 mg/dL (7-18); CHLORIDE 105 mmol/L (98-107); CO2 23 mmol/L (21-32); CREATININE 0.9 mg/dL (0.6-1.0); GLUCOSE 139 mg/dL (74-106); POTASSIUM 3.5 mmol/L (3.5-5.1); SODIUM 139 mmol/L (136-145)
[2017-11-14 13:34] LABS: ALBUMIN 3.5 g/dL (3.4-5.0); MAGNESIUM 1.9 mg/dL (1.8-2.4); SGOT 19 U/L (15-37); SGPT 36 U/L (30-65); TOTAL BILIRUBIN 0.6 mg/dL (<0.1-1.0); TOTAL PROTEIN 6.6 g/dL (6.4-8.2); TROPONIN-I < 0.04 ng/mL (<0.06)
[2017-11-14 16:51] VITALS: BP 145/71
[2017-11-14 18:25] VITALS: BP 135/63
[2017-11-14 20:04] VITALS: BP 134/64
[2017-11-14 21:02] VITALS: BP 134/64
[2017-11-15] VITALS (7 sets, daily range): BP systolic 118–150; BP diastolic 30–75
[2017-11-15 05:40] LABS: CALCIUM 8.9 mg/dL (8.5-10.1); MAGNESIUM 2.2 mg/dL (1.8-2.4); POTASSIUM 3.9 mmol/L (3.5-5.1)
[2017-11-16 06:29] LABS: HEMATOCRIT 33.2 % (37.0-47.0); MCH 27.6 pg (26.0-34.0); MCHC 33.3 g/dL (28.0-37.0); RDW 17.5 % (10.5-14.5)
[2017-11-16 06:47] LABS: CALCIUM 8.7 mg/dL (8.5-10.1); CREATININE 0.8 mg/dL (0.6-1.0); POTASSIUM 3.9 mmol/L (3.5-5.1)
[2017-11-16 07:50] VITALS: BP 116/54
[2017-11-16 08:07] LABS: GLYCOHEMOGLOBIN (HGB A1C) 6.4 % (4.8-5.6)
[2017-11-16 11:20] VITALS: BP 129/55
[2017-11-16 16:24] VITALS: BP 157/69
[2017-11-16 20:00] VITALS: BP 148/70
[2017-11-17 04:00] VITALS: BP 131/61
[2017-11-17 04:15] LABS: HEMATOCRIT 35.5 % (37.0-47.0); HEMOGLOBIN 11.6 gm/dL (12.0-15.0); MCH 27.4 pg (26.0-34.0); MCHC 32.6 g/dL (28.0-37.0); MCV 84.1 fL (80.0-100.0); RBC 4.22 mil/uL (4.20-5.00); RDW 17.2 % (10.5-14.5); WBC 7.1 thou/uL (4.0-11.0)
[2017-11-17 04:38] LABS: CALCIUM 8.9 mg/dL (8.5-10.1); CREATININE 0.9 mg/dL (0.6-1.0); POTASSIUM 4.4 mmol/L (3.5-5.1)
[2017-11-17 07:30] VITALS: BP 146/52
[2017-11-17 15:31] VITALS: BP 169/58
[2017-11-17 20:36] VITALS: BP 156/76
[2017-11-18 04:00] VITALS: BP 135/63
[2017-11-18 07:33] VITALS: BP 156/102
[2017-11-18] MEDS ORDERED: PREDNISONE 10 M10 M1 PO (15:03)
[2017-11-18] MEDS ORDERED: SEROQUEL 50 MG50 M1 PO (15:13)
[2017-11-18 15:28] VITALS: BP 156/102
[2018-04-12] MEDS ORDERED: PREVACID15 MG PO (15:14)
[2018-04-12] MEDS ORDERED: MUCINEX600 MG PO (15:14)
[2018-04-12] MEDS ORDERED: SEROQUEL 50 MG50 MG PO (15:15)
[2018-04-12] MEDS ORDERED: PREDNISONE 5 MG5 M1 (15:16)
[2018-04-12] MEDS ORDERED: XOPENEX1.25 MG/3 INH (15:17)
[2018-04-12] MEDS ORDERED: XOPENEX HFA15 GM INH (15:18)
== END 2017-11-18 15:51 | disposition home or self-care (01) | DRG 189 ==
LOC: ER 12:06 → EROBS 13:15 → 3W 13:15
PROVIDERS: Emergency Medicine; Hospitalist; Internal Medicine Pulmonary Disease; Nurse Practitioner
PROC: 05HF33Z Insertion of Infusion Device into Left Cephalic Vein, Percutaneous Approach (ICD-10-PCS; principal; 2017-11-15)
DX: J96.20 Acute and chronic respiratory failure, unspecified whether with hypoxia or hypercapnia (principal); J44.1 Chronic obstructive pulmonary disease with (acute) exacerbation; J45.901 Unspecified asthma with (acute) exacerbation; F32.9 Major depressive disorder, single episode, unspecified; E88.01 Alpha-1-antitrypsin deficiency; Z96.643 Presence of artificial hip joint, bilateral; M10.9 Gout, unspecified; K21.9 Gastro-esophageal reflux disease without esophagitis; H40.9 Unspecified glaucoma; E11.9 Type 2 diabetes mellitus without complications; F41.9 Anxiety disorder, unspecified; D69.6 Thrombocytopenia, unspecified; I10 Essential (primary) hypertension; G47.33 Obstructive sleep apnea (adult) (pediatric); Z98.42 Cataract extraction status, left eye; Z98.41 Cataract extraction status, right eye; Z86.711 Personal history of pulmonary embolism; Z90.49 Acquired absence of other specified parts of digestive tract; Z79.899 Other long term (current) drug therapy; Z88.5 Allergy status to narcotic agent; Z88.1 Allergy status to other antibiotic agents; Z88.2 Allergy status to sulfonamides; Z88.8 Allergy status to other drugs, medicaments and biological substances; Z87.891 Personal history of nicotine dependence; Z99.81 Dependence on supplemental oxygen; Z79.52 Long term (current) use of systemic steroids; Z87.01 Personal history of pneumonia (recurrent)
CPT/HCPCS: 10879; 27001

== ENCOUNTER → 2017-12-18 | Outpatient (CLI) | payer OTHER ==
[~2017-12-18] MED LIST changes: +HYDROCODONE-AP1 EAC6 PO; +LEVALBUTER0.63 MG/3 INH; +MUCINEX600 MG PO; +NAPROXEN375 MG PO; +PREDNISONE 20 M20 M1 PO; +PREDNISONE 5 MG5 M1; +PREDNISONE 5 MG5 M1 PO; +PREVACID15 MG PO; +SEROQUEL 50 MG50 M1 PO; +SEROQUEL 50 MG50 MG PO; +XOPENEX1.25 MG/3 INH
== END ==
LOC: ULTRA 09:03
DX: M79.604 Pain in right leg (principal); Z87.09 Personal history of other diseases of the respiratory system

== ENCOUNTER 2017-12-19 10:07 | Inpatient (IN) | payer OTHER ==
[~2017-12-19] VITALS: Ht 162.6 cm; Wt 119.7 kg
--- NOTE | ~2017-12-19 | P ---
[facility] [place] [address] PROCEDURE REPORT Name: MICHAEL MONTANA Room #: 351-P [facility] IN M.R.#: [id number] Admission: 12/19/17 Attend Phys: Gal Clinton MD Discharge: Date of : 51 Report #: [id number] THIS REPORT FOR: //name// CC: Abdullahi Gómez DATE OF SERVICE: 12/25/2017 PROCEDURE: Fiberoptic bronchoscopy with bronchial washings. INDICATION: Mucus plugging. PROCEDURE NOTATION: After discussing risks and benefits of the planned procedure with the patient, she desired to proceed. After obtaining informed consent, she was brought to metallurgical lab technician 3. She was placed on continuous cardiopulmonary monitoring and supplemental oxygen. She was then given 4% lidocaine nebulized to anesthetize the upper respiratory tract. Once accomplished, she received conscious sedation. A total of 6 mg Versed and 25 mcg of fentanyl were titrated during the procedure to provide adequate sedation. Once accomplished, bronchoscope was passed through an oral bite block until the vocal cords were visualized. Lidocaine 1% was instilled in the vocal cords for topical anesthesia. Bronchoscope was then passed in the trachea and 1% lidocaine was instilled in the tracheobronchial tree bilaterally to provide topical anesthesia. Once complete, airways were surveyed. FINDINGS: Mainstem, lobar, segmental and subsegmental bronchi were explored. They were patent, with no significant anatomic disease. There was extensive mucus plugging, however, throughout including up into the trachea. The patient was unable to clear it with vigorous coughing. Several 20 mL aliquots of saline were infused and aspirated to purge and clear significant mucus plugging. The airways are widely patent at the end of the procedure. Bronchial washings were sent to lab for cytology and microbiologic tests. Bronchial washings had significant mucus plugs in them. The patient tolerated well; otherwise, no complications noted. <ELECTRONICALLY SIGNED> By: Bhavesh Damon MD 12/29/17 1453 1022 1302 Bhavesh Damon MD /nt
--- NOTE | ~2017-12-19 | HC ---
[facility] [place] [address] CONSULTATION Name: MICHAEL MONTANA Room #: 351-P ADM IN M.R.#: [id number] Admission: 12/19/17 Attend Phys: Gal Clinton MD Discharge: Date of : 51 Report #: [id number] THIS REPORT FOR: //name// CC: Gal Gómez DATE OF SERVICE: 12/19/2017 ATTENDING PHYSICIAN: Gal Clinton M.D. REASON FOR CONSULTATION: Bronchospasm, acute exacerbation of COPD. HISTORY OF PRESENT ILLNESS: A 67-year-old white woman with history of alpha-1 antitrypsin deficiency and COPD with recurrent episodes of acute exacerbation of chronic obstructive pulmonary disease. She is readmitted through the Emergency Room with coughing spells, shortness of breath, but no associated fever, chills, nausea, vomiting or diarrhea. PAST MEDICAL HISTORY: Bronchial asthma; bronchitis; COPD; alpha-1 antitrypsin deficiency; history of fractured fibula, left; previous episode of pneumonia. Right shoulder replacement. Recurrent episode of acute exacerbation of COPD. DRUG ALLERGIES: PENICILLIN, SULFA, MORPHINE, DOXYCYCLINE, CEFOTETAN AND LEVOFLOXACIN. MEDICATIONS: The patient is currently on treatment with Zithromax 500 mg IV daily, meropenem 1 g IV every 8 hours. She is also receiving treatment with ergocalciferol, lactobacillus acidophilus, pantoprazole, guaifenesin, docusate, quetiapine fumarate, sertraline, budesonide, Atrovent inhalation treatments, levalbuterol inhalation treatment, methylprednisolone intravenously, insulin lispro per sliding scale, p.r.n. glucose glucagon, polyethylene glycol, ondansetron p.r.n., benzonatate around the clock 100 mg t.i.d. SOCIAL HISTORY: See H and P old records. FAMILY HISTORY: See H and P old records. REVIEW OF SYSTEMS: Essentially noncontributory. PHYSICAL EXAMINATION: GENERAL: Overweight woman with coughing spells, afebrile since admission. VITAL SIGNS: Temperature 98.3, pulse 102, respirations 32, BP 115/76, O2 saturation within range on room air. She has not required supplemental oxygen. Temperature is normal and so are all her vital signs. HEENMT: Within range. NECK: Supple. [facility] [address] [place] [address] CONSULTATION Name: MICHAEL MONTANA Room #: 351-P [facility] IN M.R.#: [id number] Admission: 12/19/17 Attend Phys: Gal Clinton MD Discharge: Date of : 51 Report #: [id number] LUNGS: Rhonchi, wheezes. HEART: S1, S2. No gallop. ABDOMEN: Obese, soft, no masses or megaly. PELVIC AND RECTAL: Deferred. EXTREMITIES: No clubbing, cyanosis. NEUROLOGIC: Grossly within normal limits. LABORATORY DATA: Sodium 144, potassium 4.2, CO2 on admission 20, repeat today 23, BUN 10, creatinine 0.9, glucose 282. Lactic acid mildly elevated at 2.8-5.8. Set of blood WBC 9400, hemoglobin 12.8 g/dL, platelets 221,000. ABGs: pH 7.33, pCO2 29, pO2 77, bicarbonate 19.3, lactate elevated 4.63. This set of gases on room air is 21% O2. RADIOLOGY EVALUATION: Chest x-ray revealed no pulmonary infiltrates. MICROBIOLOGY DATA: Negative so far. Her sputum has revealed many WBCs, few squamous epithelial cells and many mixed tia. ASSESSMENT: 1. Acute exacerbation of chronic obstructive pulmonary disease. 2. Paroxysms of cough. 3. Obesity. 4. Alpha-1 antitrypsin deficiency. 5. Diabetes mellitus. 6. Mild metabolic and lactic acidosis undetermined etiology. SUGGESTIONS: Antibiotic ba, we will cover the patient with meropenem 1 gram IV every 8 hours and Zithromax, which is 500 mg IV daily, which sometimes is helpful in patient with chronic cough and COPD. Consideration for use of higher doses of dextromethorphan and benzonatate must be entertained. Possibility of using gabapentin or pregabalin may also be entertained if coughing spells do not improve. Dr. Carrillo, thank you for requesting my suggestions. <ELECTRONICALLY SIGNED> By: Juan Miller MD 12/21/17 0901 1414 1906 Juan Miller MD /nt
--- NOTE | ~2017-12-19 | EKG ---
[place] [address] [facility] [place] [address] ELECTROCARDIOGRAM REPORT Name: MICHAEL MONTANA Room #: 351-P [facility] IN M.R.#: [id number] Admission: 12/19/17 Attend Phys: Gal Clinton MD Discharge: Date of : 51 Report #: [id number] THIS REPORT FOR: //name// [facility] ED Test Date: 2017-12-19 Test Time: 10:37:03 Pat Name: MICHAEL OMNTANA Department: Room: [facility] Gender: F Materials And Corrosion Engineer: TORI : 1950 Requested By: Jai Roque Order Number: [id number] MD: Ross Tejeda Measurements Intervals [place] Rate: 102 P: 20 AL: 158 QRS: -59 QRSD: 94 T: 97 QT: 364 QTc: 475 Interpretive Statements Sinus tachycardia Occasional ventricular premature complexes Left anterior fascicular block Abnormal R-wave progression, late transition Borderline repolarization abnormality Compared to ECG 11/14/2017 12:38:14 No significant change was found Electronically Signed On 12-20-2017 8:57:06 BEAD CUTTER by Ross Tejeda [email or web address] <ELECTRONICALLY SIGNED> By: Ross Tejeda MD, [facility] 12/20/17 0857 1037 1037 Ross Tejeda MD, [facility] /EPI
--- NOTE | ~2017-12-19 | CNG ---
[facility] [place] [address] CYTO-NONGYN REPORT PROCEDURE Name: TEGAN MONTANA Room #: 351-P ADM IN M.R.#: [id number] Admission: 12/19/17 Date of : 52 Discharge: Report #: [id number] Path Case #: [id number] CYTOPATHOLOGY REPORT COLLECTION DATE: 12/25/2017 RECEIVED DATE: 12/25/2017 SUBMITTING PHYS: Dr. Gal Clinton OTHER PHYS: Dr. Bhavesh Damon CLINICAL HISTORY: Acute on chronic hypoxemic respiratory failure SPECIMEN(S) RECEIVED: A.Bronchial wash * * * * * * * * * * * * FINAL DIAGNOSIS: A. Bronchial wash: - No malignant cells identified. - Bronchial epithelial cells, alveolar macrophages, and squamous cells present. PATHOLOGIST: Cristina Bergman M.D. REPORT ELECTRONICALLY SIGNED BY: Cristina Bergman M.D. DATE/TIME: 12/26/2017 12:51 * * * * * * * * * * * * GROSS PATHOLOGY: A. Bronchial wash: The specimen is submitted unfixed, labeled "Tegan Montana". Received by the Cytology Department is ten mL of cloudy colorless fluid. One ThinPrep slide was prepared. (mm 12.25.2017) AUTOMATION TENDER(S): JOSE ROBERTO Reese([facility])IAC INITIAL CPT CODE(S): A; 82466 Professional services performed by [facility] at [facility] [address], [place] [address] Technical services performed by [facility] at [address] [place] [address]., [address], [place] [address]. [facility] [address] [place] [address], [facility] [address] [place] [address] PHONE: [phone] [facility] [address] [place] [address] CYTO-NONGYN REPORT PROCEDURE Name: TEGAN MONTANA Room #: 351-P ADM IN M.R.#: [id number] Admission: 12/19/17 Date of : 52 Discharge: Report #: [id number] Path Case #: [id number] DIRECTOR: Alvin Chang M.D. * * * END OF REPORT * * *
[2017-12-19 10:07] VITALS: BP 115/76
[~2017-12-19 10:07] MED LIST changes: -HYDROCODONE-AP1 EAC6 PO; -LEVALBUTER0.63 MG/3 INH; -MUCINEX600 MG PO; -NAPROXEN375 MG PO; -PREDNISONE 20 M20 M1 PO; -PREDNISONE 5 MG5 M1; -PREDNISONE 5 MG5 M1 PO; -PREVACID15 MG PO; -SEROQUEL 50 MG50 MG PO; -XOPENEX1.25 MG/3 INH
[2017-12-19 10:31] LABS: ABSOLUTE NEUTROPHILS 7.4 thou/uL (1.4-8.2); BASOPHILS 0.4 % (0.0-2.0); EOSINOPHILS 0.1 % (0.0-3.0); HEMATOCRIT 38.1 % (37.0-47.0); HEMOGLOBIN 12.8 gm/dL (12.0-15.0); LYMPHOCYTES 15.3 % (24.0-44.0); MCH 28.1 pg (26.0-34.0); MCHC 33.6 g/dL (28.0-37.0); MCV 83.5 fL (80.0-100.0); MONOCYTES 5.2 % (1.0-8.0); PLATELET COUNT 221 thou/uL (150-400); RBC 4.56 mil/uL (4.20-5.00); WBC 9.4 thou/uL (4.0-11.0)
[2017-12-19 10:40] LABS: CALCIUM 8.9 mg/dL (8.5-10.1); CREATININE 1.1 mg/dL (0.6-1.0)
[2017-12-19 10:46] LABS: BE(vivo) -3.9 mmol/L (-2 to +3); HCO3 19.3 mmol/L (22.0-26.0); PCO2 29.5 mmHg (35.0-45.0); PO2 77.4 mmHg (80.0-100.0); pH 7.433 (7.360-7.450)
[2017-12-19 12:05] VITALS: BP 101/81
[2017-12-19 12:52] VITALS: BP 113/54
[2017-12-19 20:00] VITALS: BP 169/87
[2017-12-20] VITALS: BP 135/63
[2017-12-20 04:00] VITALS: BP 157/73
[2017-12-20 06:04] LABS: CALCIUM 8.7 mg/dL (8.5-10.1); CREATININE 0.9 mg/dL (0.6-1.0); MAGNESIUM 2.2 mg/dL (1.8-2.4); POTASSIUM 4.2 mmol/L (3.5-5.1)
[2017-12-20 09:08] VITALS: BP 141/65
[2017-12-20 12:21] VITALS: BP 152/75
[2017-12-20 17:13] VITALS: BP 159/75
[2017-12-20 19:38] VITALS: BP 148/72
[2017-12-21 05:07] VITALS: BP 151/78
[2017-12-21 05:32] LABS: HEMATOCRIT 30.8 % (37.0-47.0); MCH 28.5 pg (26.0-34.0); MCHC 33.5 g/dL (28.0-37.0); MCV 84.9 fL (80.0-100.0); RBC 3.62 mil/uL (4.20-5.00); WBC 9.1 thou/uL (4.0-11.0)
[2017-12-21 05:33] LABS: HEMOGLOBIN 10.3 gm/dL (12.0-15.0)
[2017-12-21 05:45] LABS: CALCIUM 8.2 mg/dL (8.5-10.1); CREATININE 0.8 mg/dL (0.6-1.0); POTASSIUM 4.2 mmol/L (3.5-5.1)
[2017-12-21 08:58] VITALS: BP 179/83
[2017-12-21 11:52] VITALS: BP 148/79
[2017-12-21 17:34] VITALS: BP 145/85
[2017-12-21 19:32] VITALS: BP 145/80
[2017-12-21 23:06] LABS: ADENOVIRUS Negative (Negative); INFLUENZA A Negative (Negative); INFLUENZA B Negative (Negative); METAPNEUMOVIRUS Negative (Negative); PARAINFLUENZA 1 Negative (Negative); PARAINFLUENZA 2 Negative (Negative); PARAINFLUENZA 3 Negative (Negative); RHINOVIRUS Negative (Negative); RSV A Negative (Negative); RSV B Negative (Negative)
[2017-12-22 04:19] VITALS: BP 163/80
[2017-12-22 06:50] LABS: HEMATOCRIT 34.4 % (37.0-47.0); HEMOGLOBIN 11.4 gm/dL (12.0-15.0); MCH 28.1 pg (26.0-34.0); MCHC 33.2 g/dL (28.0-37.0); MCV 84.6 fL (80.0-100.0); PLATELET COUNT 203 thou/uL (150-400); RBC 4.07 mil/uL (4.20-5.00); RDW 17.8 % (10.5-14.5)
[2017-12-22 07:09] LABS: ALBUMIN 3.1 g/dL (3.4-5.0); CALCIUM 8.4 mg/dL (8.5-10.1); CREATININE 0.9 mg/dL (0.6-1.0); POTASSIUM 3.6 mmol/L (3.5-5.1); TOTAL BILIRUBIN 0.2 mg/dL (<0.1-1.0); TOTAL PROTEIN 5.9 g/dL (6.4-8.2)
[2017-12-22 07:39] LABS: ABSOLUTE NEUTROPHILS 6.8 thou/uL (1.4-8.2)
[2017-12-22 07:40] LABS: ANISOCYTOSIS 1+
[2017-12-22 07:49] VITALS: BP 171/88
[2017-12-22 11:59] VITALS: BP 156/76
[2017-12-22 16:09] VITALS: BP 149/79
[2017-12-22 16:35] VITALS: BP 149/79
[2017-12-22 20:00] VITALS: BP 153/59
[2017-12-23 04:00] VITALS: BP 153/76
[2017-12-23 07:53] LABS: HEMATOCRIT 37.9 % (37.0-47.0); HEMOGLOBIN 12.6 gm/dL (12.0-15.0); MCH 27.4 pg (26.0-34.0); MCHC 33.1 g/dL (28.0-37.0); MCV 82.8 fL (80.0-100.0); PLATELET COUNT 189 thou/uL (150-400); RBC 4.58 mil/uL (4.20-5.00); RDW 17.6 % (10.5-14.5); WBC 7.2 thou/uL (4.0-11.0)
[2017-12-23 08:03] VITALS: BP 182/89
[2017-12-23 08:11] LABS: CALCIUM 8.8 mg/dL (8.5-10.1); CREATININE 0.9 mg/dL (0.6-1.0); POTASSIUM 3.7 mmol/L (3.5-5.1)
[2017-12-23 08:35] LABS: ABSOLUTE NEUTROPHILS 6.3 thou/uL (1.4-8.2); ANISOCYTOSIS 1+
[2017-12-23 08:36] LABS: POLYCHROMASIA OCCASIONAL
[2017-12-23 11:03] VITALS: BP 176/83; BP 179/83
[2017-12-23 15:46] VITALS: BP 131/76
[2017-12-23 21:58] VITALS: BP 157/66
[2017-12-24 03:27] VITALS: BP 133/53
[2017-12-24 07:04] LABS: HEMATOCRIT 34.6 % (37.0-47.0); HEMOGLOBIN 11.5 gm/dL (12.0-15.0); MCH 27.5 pg (26.0-34.0); MCHC 33.2 g/dL (28.0-37.0); MCV 83.1 fL (80.0-100.0); RBC 4.17 mil/uL (4.20-5.00); RDW 17.4 % (10.5-14.5); WBC 8.1 thou/uL (4.0-11.0)
[2017-12-24 07:21] LABS: CALCIUM 8.5 mg/dL (8.5-10.1); CREATININE 0.7 mg/dL (0.6-1.0); POTASSIUM 3.5 mmol/L (3.5-5.1)
[2017-12-24 08:00] VITALS: BP 138/69
[2017-12-24 12:00] VITALS: BP 135/71
[2017-12-24 16:00] VITALS: BP 151/83
[2017-12-24 19:27] VITALS: BP 159/79
[2017-12-25 04:23] VITALS: BP 125/70
[2017-12-25 05:42] LABS: HEMATOCRIT 37.7 % (37.0-47.0); HEMOGLOBIN 12.5 gm/dL (12.0-15.0); MCH 27.4 pg (26.0-34.0); MCV 82.9 fL (80.0-100.0); PLATELET COUNT 240 thou/uL (150-400); RBC 4.55 mil/uL (4.20-5.00); RDW 17.3 % (10.5-14.5); WBC 9.9 thou/uL (4.0-11.0)
[2017-12-25 05:55] LABS: PROTIME 10.1 Seconds (9.3-11.4)
[2017-12-25 05:59] LABS: CALCIUM 8.4 mg/dL (8.5-10.1); CREATININE 0.8 mg/dL (0.6-1.0); TOTAL BILIRUBIN 0.4 mg/dL (<0.1-1.0); TOTAL PROTEIN 6.1 g/dL (6.4-8.2)
[2017-12-25 07:26] VITALS: BP 186/103
[2017-12-25 07:49] LABS: ABSOLUTE NEUTROPHILS 7.9 thou/uL (1.4-8.2); ANISOCYTOSIS SLIGHT; ATYPICAL LYMPHS 2 %; LARGE PLATELETS OCCASIONAL; NUCLEATED RBCS 1 /100WBC; POIKILOCYTOSIS SLIGHT
[2017-12-25 12:21] VITALS: BP 194/104
[2017-12-25 15:30] VITALS: BP 158/69
[2017-12-25 20:00] VITALS: BP 153/75
[2017-12-26 04:00] VITALS: BP 115/53
[2017-12-26 06:31] LABS: HEMATOCRIT 35.4 % (37.0-47.0); HEMOGLOBIN 11.8 gm/dL (12.0-15.0); MCH 27.8 pg (26.0-34.0); MCHC 33.3 g/dL (28.0-37.0); MCV 83.4 fL (80.0-100.0); PLATELET COUNT 234 thou/uL (150-400); RBC 4.24 mil/uL (4.20-5.00); RDW 17.6 % (10.5-14.5); WBC 10.1 thou/uL (4.0-11.0)
[2017-12-26 06:46] LABS: CALCIUM 8.3 mg/dL (8.5-10.1); CREATININE 0.9 mg/dL (0.6-1.0); POTASSIUM 3.5 mmol/L (3.5-5.1)
[2017-12-26 07:33] LABS: ABSOLUTE NEUTROPHILS 8.2 thou/uL (1.4-8.2); ANISOCYTOSIS 1+; METAMYELOCYTES 3 %; MYELOCYTES 1 %
[2017-12-26 08:19] VITALS: BP 148/88
[2017-12-26 12:02] VITALS: BP 139/74
[2017-12-26 17:26] VITALS: BP 136/82
[2017-12-26 19:45] VITALS: BP 145/64
[2017-12-27] VITALS (7 sets, daily range): BP systolic 126–166; BP diastolic 63–96
[2017-12-27 06:23] LABS: HEMOGLOBIN 12.3 gm/dL (12.0-15.0); MCH 27.6 pg (26.0-34.0); MCHC 33.2 g/dL (28.0-37.0); MCV 83.2 fL (80.0-100.0); PLATELET COUNT 225 thou/uL (150-400); RBC 4.44 mil/uL (4.20-5.00); RDW 17.3 % (10.5-14.5); WBC 9.4 thou/uL (4.0-11.0)
[2017-12-27 06:45] LABS: CALCIUM 8.4 mg/dL (8.5-10.1); CREATININE 0.9 mg/dL (0.6-1.0); POTASSIUM 4.3 mmol/L (3.5-5.1)
[2017-12-27 07:55] LABS: ABSOLUTE NEUTROPHILS 7.8 thou/uL (1.4-8.2); ANISOCYTOSIS 1+; METAMYELOCYTES 2 %; MYELOCYTES 1 %
[2017-12-28 03:55] VITALS: BP 131/69
[2017-12-28 08:02] VITALS: BP 142/70
[2017-12-28 11:10] VITALS: BP 148/75
[2017-12-28 18:07] VITALS: BP 147/82
[2017-12-28 20:00] VITALS: BP 129/58
[2017-12-29 04:00] VITALS: BP 126/52
[2017-12-29 07:36] VITALS: BP 118/58
[2017-12-29 07:56] VITALS: BP 149/79
[2017-12-29 11:36] VITALS: BP 129/67
[2017-12-29] MEDS ORDERED: PREDNISONE 5 MG5 M1 PO (15:47)
[2017-12-29] MEDS ORDERED: LEVALBUTER0.63 MG/3 INH (15:47)
[2017-12-29 15:56] VITALS: BP 149/79
[2018-04-12] MEDS ORDERED: PREVACID15 MG PO (15:14)
[2018-04-12] MEDS ORDERED: MUCINEX600 MG PO (15:14)
[2018-04-12] MEDS ORDERED: SEROQUEL 50 MG50 MG PO (15:15)
[2018-04-12] MEDS ORDERED: PREDNISONE 5 MG5 M1 (15:16)
[2018-04-12] MEDS ORDERED: XOPENEX1.25 MG/3 INH (15:17)
[2018-04-12] MEDS ORDERED: XOPENEX HFA15 GM INH (15:18)
== END 2017-12-29 16:46 | disposition home health service (06) | DRG 871 ==
LOC: ER 10:07 → 3W 11:17 → EROBS 11:17 → 3W 12:54 → ENTRNSPT 12-29 16:32 → 3W 12-29 16:46
PROVIDERS: Family Medicine; Hospitalist; Internal Medicine Pulmonary Disease; Nurse Practitioner
PROC: 0BC18ZZ Extirpation of Matter from Trachea, Via Natural or Artificial Opening Endoscopic (ICD-10-PCS; principal; 2017-12-25)
DX: A41.9 Sepsis, unspecified organism (principal); J18.1 Lobar pneumonia, unspecified organism; J96.21 Acute and chronic respiratory failure with hypoxia; N17.9 Acute kidney failure, unspecified; J44.1 Chronic obstructive pulmonary disease with (acute) exacerbation; Z68.42 Body mass index [BMI] 45.0-49.9, adult; J44.0 Chronic obstructive pulmonary disease with (acute) lower respiratory infection; M10.9 Gout, unspecified; K21.9 Gastro-esophageal reflux disease without esophagitis; H40.9 Unspecified glaucoma; E11.9 Type 2 diabetes mellitus without complications; F32.9 Major depressive disorder, single episode, unspecified; I10 Essential (primary) hypertension; F41.9 Anxiety disorder, unspecified; E66.9 Obesity, unspecified; E88.01 Alpha-1-antitrypsin deficiency; G47.33 Obstructive sleep apnea (adult) (pediatric); D64.9 Anemia, unspecified; Z79.899 Other long term (current) drug therapy; Z88.6 Allergy status to analgesic agent; Z88.1 Allergy status to other antibiotic agents; Z88.0 Allergy status to penicillin; Z88.2 Allergy status to sulfonamides; Z87.891 Personal history of nicotine dependence
CPT/HCPCS: 10879; 27001

== ENCOUNTER 2018-01-05 15:06 | Emergency (ER) | payer OTHER ==
[~2018-01-05] VITALS: Ht 162.6 cm; Wt 119.8 kg
--- NOTE | ~2018-01-05 | EKG ---
[place] [address] [facility] [place] [address] ELECTROCARDIOGRAM REPORT Name: MICHAEL MONTANA [id number] Admission: 01/05/18 Attend Phys: Discharge: 01/05/18 Date of : 52 Report #: [id number] THIS REPORT FOR: //name// [facility] ED Test Date: 2018-01-05 Test Time: 15:34:04 Pat Name: MICHAEL MONTANA Department: Room: Gender: F Clinical Professor: TORI : 1950 Requested By: Christine Vences Order Number: [id number] MD: Ross Tejeda Measurements Intervals [place] Rate: 111 P: 31 [place]: 148 QRS: -69 QRSD: 87 T: 46 QT: 339 QTc: 461 Interpretive Statements Sinus tachycardia Occasional atrial premature complexes Left anterior fascicular block Abnormal R-wave progression, late transition Minimal ST depression, lateral leads Baseline wander in lead(s) III,V2 Compared to ECG 12/19/2017 10:37:03 No significant change was found Electronically Signed On 01-06-2018 13:03:12 DRAIN TILE MACHINE OPERATOR by Ross Tejeda [email or web address] <ELECTRONICALLY SIGNED> By: Ross Tejeda MD, [facility] 01/06/18 1303 1534 1534 Ross Tejeda MD, [facility] /EPI
[~2018-01-05 15:06] MED LIST changes: +LEVALBUTER0.63 MG/3 INH; +PREDNISONE 5 MG5 M1 PO
[2018-01-05 15:34] LABS: ABSOLUTE NEUTROPHILS 13.7 thou/uL (1.4-8.2); BASOPHILS 0.8 % (0.0-2.0); EOSINOPHILS 0.1 % (0.0-3.0); HEMATOCRIT 44.8 % (37.0-47.0); HEMOGLOBIN 14.8 gm/dL (12.0-15.0); LYMPHOCYTES 24.2 % (24.0-44.0); MCH 27.4 pg (26.0-34.0); MONOCYTES 4.6 % (1.0-8.0); PLATELET COUNT 263 thou/uL (150-400); POLYS 70.3 % (36.0-66.0); RDW 18.6 % (10.5-14.5); WBC 19.5 thou/uL (4.0-11.0)
[2018-01-05 15:44] LABS: CALCIUM 10.2 mg/dL (8.5-10.1); CREATININE 1.3 mg/dL (0.6-1.0); POTASSIUM 4.6 mmol/L (3.5-5.1)
[2018-01-05 18:30] VITALS: BP 172/84
[2018-04-12] MEDS ORDERED: PREVACID15 MG PO (15:14)
[2018-04-12] MEDS ORDERED: MUCINEX600 MG PO (15:14)
[2018-04-12] MEDS ORDERED: SEROQUEL 50 MG50 MG PO (15:15)
[2018-04-12] MEDS ORDERED: PREDNISONE 5 MG5 M1 (15:16)
[2018-04-12] MEDS ORDERED: XOPENEX1.25 MG/3 INH (15:17)
[2018-04-12] MEDS ORDERED: XOPENEX HFA15 GM INH (15:18)
== END 2018-01-05 18:40 | disposition home or self-care (01) ==
LOC: ER 15:06
PROVIDERS: Emergency Medicine
DX: J44.1 Chronic obstructive pulmonary disease with (acute) exacerbation (principal); R09.02 Hypoxemia; K21.9 Gastro-esophageal reflux disease without esophagitis; M10.9 Gout, unspecified; E11.9 Type 2 diabetes mellitus without complications; Z96.611 Presence of right artificial shoulder joint; Z88.0 Allergy status to penicillin; Z88.2 Allergy status to sulfonamides; Z88.5 Allergy status to narcotic agent; Z87.891 Personal history of nicotine dependence

== ENCOUNTER → 2018-01-30 | Outpatient (CLI) | payer OTHER | LOC: RAD 15:32 | DX: J45.40 Moderate persistent asthma, uncomplicated (principal); I27.20 Pulmonary hypertension, unspecified; M19.011 Primary osteoarthritis, right shoulder; Z96.611 Presence of right artificial shoulder joint ==

== ENCOUNTER 2018-02-08 13:21 | Emergency (ER) | payer OTHER ==
[~2018-02-08] VITALS: Ht 162.6 cm; Wt 115.2 kg
[2018-02-08] MEDS ORDERED: HYDROCODONE-AP1 EAC6 PO (16:32)
[2018-02-08] MEDS ORDERED: NAPROXEN375 MG PO (16:32)
[2018-02-08 17:16] VITALS: BP 189/76
== END 2018-02-08 17:10 | disposition home or self-care (01) ==
LOC: ER 13:21
DX: S63.281A Dislocation of proximal interphalangeal joint of left index finger, initial encounter (principal); S00.83XA Contusion of other part of head, initial encounter; S81.011A Laceration without foreign body, right knee, initial encounter; S16.1XXA Strain of muscle, fascia and tendon at neck level, initial encounter; M10.9 Gout, unspecified; K21.9 Gastro-esophageal reflux disease without esophagitis; J44.9 Chronic obstructive pulmonary disease, unspecified; E11.9 Type 2 diabetes mellitus without complications; Z87.01 Personal history of pneumonia (recurrent); Z96.611 Presence of right artificial shoulder joint; Z88.0 Allergy status to penicillin; Z88.1 Allergy status to other antibiotic agents; Z88.5 Allergy status to narcotic agent; W10.9XXA Fall (on) (from) unspecified stairs and steps, initial encounter; Y93.89 Activity, other specified; Y92.89 Other specified places as the place of occurrence of the external cause; Y99.8 Other external cause status

== ENCOUNTER → 2018-02-15 | Outpatient (CLI) | payer OTHER ==
[~2018-02-15] MED LIST changes: +HYDROCODONE-AP1 EAC6 PO; +NAPROXEN375 MG PO
== END ==
LOC: RAD 16:35
DX: M25.442 Effusion, left hand (principal)

== ENCOUNTER → 2018-02-20 | Outpatient (CLI) | payer OTHER ==
[2018-02-20 10:08] LABS: CREATININE 0.9 mg/dL (0.6-1.0)
== END ==
LOC: CAT 05:47 → RAD 05:47 → CAT 10:45
PROVIDERS: Internal Medicine Pulmonary Disease
DX: Z12.31 Encounter for screening mammogram for malignant neoplasm of breast (principal); J98.11 Atelectasis; K44.9 Diaphragmatic hernia without obstruction or gangrene

== ENCOUNTER → 2018-04-18 | Outpatient (CLI) | payer OTHER ==
[~2018-04-18] VITALS: Ht 162.6 cm; Wt 113.4 kg
[~2018-04-18] MED LIST changes: +MUCINEX600 MG PO; +PREDNISONE 5 MG5 M1; +PREVACID15 MG PO; +SEROQUEL 50 MG50 MG PO; +XOPENEX1.25 MG/3 INH
--- NOTE | ~2018-04-18 | PATH ---
[facility] [address] [place] [address] PATHOLOGY RPT PROCEDURE Name: TEGAN MONTANA Room #: [facility].#: [id number] Admission: 04/18/18 Date of : 52 Discharge: Report #: [id number] Path Case #: [id number] [facility] Accession Number: [id number] . 01 Material submitted: . POLYP AT RECTUM . 01 Clinical history: . Pre-op diagnosis: Screening Post-op diagnosis: Colon polyp, diverticulosis . 02 Diagnosis: "Polyp at rectum", biopsy: - Hyperplastic polyp. (CLW:eduin; 04/19/2018) QMS/04/19/2018 . 02 Electronically signed: . Ana Cruz MD, Pathologist NPI- [id number] . 01 Gross description: . The specimen is received in formalin, labeled "Tegan Montana, polyp at rectum". Received are two segments of pale farias soft tissue measuring 0.2 and 0.3 cm in maximum dimensions. The specimen is submitted entirely in cassette A1. (CAA; 04/18/2018) QAC/QAC . 02 Pathologist provided ICD-10: K62.1 . 02 CPT . 837861 Performed at: [address], [place], [place] [id number] MD Leon Garcia MD Phone: [phone] Performed at: [address] [id number] MD Cristina Bergman MD Phone: [phone]
--- NOTE | ~2018-04-18 | P ---
[facility] [place] [address] PROCEDURE REPORT Name: MICHAEL MONTANA Room #: REG [facility]#: [id number] Admission: 04/18/18 Attend Phys: Lorenzo Bryson Discharge: Date of : 52 Report #: [id number] THIS REPORT FOR: //name// CC: Lorenzo Gómez MD DATE OF SERVICE: 04/18/2018 PROCEDURE PERFORMED: Colonoscopy with biopsies. HISTORY OF PRESENT ILLNESS: The patient is a 67-year-old female who presents today for routine screening colonoscopy. She denies any symptoms. No family history of colon cancer. DESCRIPTION OF PROCEDURE: The risks and benefits of the procedure were explained to the patient, those risks including but not limited to bleeding, perforation, the risk of sedation. She understood these risks and gave informed consent. Sedation was given using propofol per Anesthesia. Next, a digital rectal exam was initially performed, which was normal. Next, using a standard Olympus colonoscope, the scope was placed in the patient's anus and advanced under direct vision to the cecum. The overall prep was excellent. The cecum and ileocecal valve were normal in appearance. Ascending, transverse and descending colon were normal. A few scattered diverticula were noted in the sigmoid colon, no evidence of inflammation, otherwise normal. In the rectum, a single 3 mm sessile polyp was noted. This was removed with cold forceps. On retroflexion, no abnormalities were noted. The scope was then withdrawn and the procedure terminated. The patient tolerated the procedure well. IMPRESSION: 1. Sigmoid diverticulosis. 2. Small rectal polyp. 3. Otherwise normal colonoscopy. RECOMMENDATIONS: 1. Await biopsy results. 2. If polyp is hyperplastic repeat in 10 years; if adenomatous polyp repeat in 5 years. Thank you for allowing me to participate in her care. <ELECTRONICALLY SIGNED> By: Lorenzo Bourne MD 04/20/18 0901 0959 1636 Lorenzo Bourne MD /nt
== END | disposition home or self-care (01) ==
LOC: GI 07:56
DX: Z12.11 Encounter for screening for malignant neoplasm of colon (principal); K63.5 Polyp of colon; K57.30 Diverticulosis of large intestine without perforation or abscess without bleeding; Z68.41 Body mass index [BMI] 40.0-44.9, adult; G47.30 Sleep apnea, unspecified; J43.9 Emphysema, unspecified; F32.9 Major depressive disorder, single episode, unspecified; F41.9 Anxiety disorder, unspecified; Z87.891 Personal history of nicotine dependence; J45.909 Unspecified asthma, uncomplicated; Z98.890 Other specified postprocedural states; Z98.51 Tubal ligation status; E11.9 Type 2 diabetes mellitus without complications; K21.9 Gastro-esophageal reflux disease without esophagitis
CPT/HCPCS: 62110; 62900

== ENCOUNTER 2018-05-04 14:06 | Inpatient (IN) | payer OTHER ==
[~2018-05-04] VITALS: Ht 162.6 cm; Wt 110.7 kg
--- NOTE | ~2018-05-04 | PATH ---
[facility] [address] [place] [address] PATHOLOGY RPT PROCEDURE Name: MICHAEL MONTANA Room #: 224-P ADM IN M.R.#: [id number] Admission: 05/04/18 Date of : 52 Discharge: Report #: [id number] Path Case #: [id number] Note [facility] Accession Number: [id number] TESTS RESULT FLAG UNITS REF RANGE LAB Clinician Provided Cytology Information No. of containers..01 Other (Miscellaneous) Source: RLL BAL DIAGNOSIS: 02 RLL BAL NEGATIVE FOR MALIGNANT CELLS. REACTIVE BRONCHIAL CELLS ARE PRESENT. PULMONARY MACROPHAGES (DUST CELLS) ARE PRESENT. Signed out by: 02 Robinson Edwards MD, Pathologist NPI- [id number] Performed by: 03 Shell Cunningham, Patient Accounts Coordinator ([facility]) Gross description: 01 10ML, COLORLESS, CLOUDY /LCS FLAG LEGEND: L-Low Normal,H-High Normal,LL-Alert Low,HH-Alert High <-Panic Low,>-Panic High,A-Abnormal,AA-Critical Abnormal Performed at: [address] [place] [address] Leon Garcia MD, [address] [address] Cristina Bergman MD, [address] [address] Alvni Chang MD, Performed at: 01 [place] [address], [place], [place] [id number] MD Leon Garcia MD Phone: [phone]
--- NOTE | ~2018-05-04 | HC ---
[facility] [place] [address] CONSULTATION Name: MICHAEL MONTANA Room #: 422-P ADM IN M.R.#: [id number] Admission: 05/04/18 Attend Phys: Bernard Dewitt MD Discharge: Date of : 52 Report #: [id number] THIS REPORT FOR: //name// CC: Bernard Gómez DATE OF SERVICE: 05/04/2018 REASON FOR CONSULTATION: 1. Exacerbation of COPD. 2. Obstructive sleep apnea. 3. Overweight. PLAN: Agree with corticosteroids, aerosol therapy. We will hold off on antibiotics at this time. If still in-house on Monday, we will try an upper GI to see if she has reflux. HISTORY OF PRESENT ILLNESS: A very pleasant 67-year-old female relates was doing well earlier this week; however, yesterday started to feel tired. This morning with cough, shortness of breath, no sputum production, no fever or chills. The patient did not do treatment and steroids in the ER and tried to get up and walk, however, was unable. PAST MEDICAL HISTORY AND SURGERIES: Rotator cuff on right, bilateral hip avascular necrosis, tonsillectomy and tubal ligation. FAMILY HISTORY: Negative for early lung disease. HOME MEDICATIONS: Include sertraline, Seroquel, Mucinex, Prevacid, vitamin D. REVIEW OF SYSTEMS: Cough, shortness of breath, wheeze. No chest pain or palpitations, fatigue was noted. No increasing pedal edema. PHYSICAL EXAMINATION: VITAL SIGNS: Temperature 98.3, pulse 117, respirations 31, BP 164/70. EYES: Negative icterus. NECK: Negative JVD. Thyroid not enlarged. LUNGS: Showed mild expiratory wheeze. HEART: Regular. ABDOMEN: Bowel sounds present. EXTREMITIES: Showed no edema. LABORATORY DATA: Chest x-ray, no acute. White count 9.6, hemoglobin 13.6, [facility] [address] [place] [address] CONSULTATION Name: MICHAEL MONTANA Room #: 422[facility] IN [facility]#: [id number] Admission: 05/04/18 Attend Phys: Bernard Dewitt MD Discharge: Date of : 52 Report #: [id number] platelets 199, no bands. ProBNP normal. BUN 13, creatinine 0.9. A pH 7.47, pCO2 of 25, pO2 of 90. Lactate 2.71 on room air. By: 1721 34 Asia Carrillo MD /nt
--- NOTE | ~2018-05-04 | P ---
[facility] [place] [address] PROCEDURE REPORT Name: MICHAEL MONTANA Room #: 422-P [facility] IN M.R.#: [id number] Admission: 05/04/18 Attend Phys: Bernard Dewitt MD Discharge: Date of : 52 Report #: [id number] THIS REPORT FOR: //name// CC: Abdullahi Gómez DATE OF SERVICE: 05/07/2018 INDICATION: Mucus plugging and poor airway clearance, lower respiratory infection, ASA classification class 3. PROCEDURE NOTATION: After discussing risks, benefits of planned procedure with the patient, she desired to proceed. After obtaining informed consent, she was brought to labor economics professor 3 where she was placed on continuous cardiopulmonary monitoring and supplemental oxygen, given 2% lidocaine nebulized to anesthetize the upper respiratory tract. Once accomplished, she received conscious sedation. A total 4 mg of Versed and 50 mcg of fentanyl were titrated during the procedure for adequate sedation. Once complete, bronchoscope was passed through an oral bite block until the vocal cords were visualized. 2% lidocaine was instilled in the vocal cords to provide topical anesthesia. Vocal cords moved appropriately both before and after procedure. Bronchoscope was then passed in the trachea where 2% lidocaine was instilled in the tracheobronchial tree, right topical anesthesia. Once complete, the airways were surveyed. FINDINGS: Mainstem, lobar, segmental and subsegmental bronchi were explored and were patent with no significant anatomic variation or disease other than thick white secretions noted throughout the airways including the trachea. The right lower lobe was selected for bronchoalveolar lavage due to the severity of secretions. Very turbid and cloudy return noted with several bronchial casts. This was sent for microbiologic and cytologic tests. The rest of the airways were then purged and aspirated with the return discarded to cleanse of significant mucus plugging that was noted throughout. Airways were patent at the end of procedure. The patient tolerated reasonably well. No noted complications. Did receive albuterol and ipratropium aerosol treatment post-procedure. SUGGESTION: Awaiting microbiologic tests and cytology. By: [id number] Bhavesh Damon MD /nt
--- NOTE | ~2018-05-04 | HC ---
[facility] [place] [address] CONSULTATION Name: MICHAEL MONTANA Room #: 224-P ADM IN M.R.#: [id number] Admission: 05/04/18 Attend Phys: Bernard Dewitt MD Discharge: Date of : 52 Report #: [id number] THIS REPORT FOR: //name// CC: Bernard Segalen Dalia DATE OF SERVICE: 05/07/2018 ATTENDING PHYSICIAN: Bernard Dewitt MD REASON FOR CONSULTATION: Possible antibiotic management. Multiple antibiotic allergies. HISTORY OF PRESENT ILLNESS: A 67-year-old white woman with reactive airway disease, is admitted with increasing shortness of breath, cough and wheezing. The patient had multiple previous hospitalizations with similar problems. She underwent bronchoscopy today. She was found to have thick bronchial secretions. When I query the patient about her use of being inhaled steroids, tells me that the insurance has not paid for this medication. Subsequently, she is only guaifenesin. PAST MEDICAL HISTORY: Bronchial asthma. COPD. Alpha-1 antitrypsin deficiency. History of fractured fibula on left. Bilateral total hip replacement, right shoulder replacement. DRUG ALLERGIES: THE PATIENT IS ALLERGIC OR INTOLERANT TO PENICILLINS, SULFA, MORPHINE, DOXYCYCLINE, CEFOTETAN, LEVOFLOXACIN. MEDICATIONS: She is on treatment with ergocalciferol 50,000 units weekly, pantoprazole, methylprednisolone 40 mg IV every 6 hours, promethazine p.r.n., enoxaparin 40 mg subcutaneously at bedtime, quetiapine fumarate at bedtime, sertraline 150 mg at bedtime, Atrovent inhalation treatment every 4 hours, levalbuterol inhalation treatments, acetaminophen p.r.n., zolpidem 5 mg at bedtime p.r.n., ondansetron p.r.n., guaifenesin 1200 mg q.12 hours. SOCIAL HISTORY: See H and P, old records. FAMILY HISTORY: See H and P, old records. REVIEW OF SYSTEMS: As above. PHYSICAL EXAMINATION: GENERAL: Overweight woman, not toxic looking afebrile since admission. PRESENTING VITAL SIGNS: Temperature 98.4, pulse 71, respirations 12, BP 151/78. Height 5 feet 4 inches, weight 244 pounds. HEENMT: Within range. [address] [address] CONSULTATION Name: MICHAEL MONTANA Room #: [address] [place] [address] IN M.R.#: [id number] Admission: 05/04/18 Attend Phys: Bernard Dewitt MD Discharge: Date of : 51 Report #: [id number] NECK: Supple, no thyromegaly. BREASTS: Deferred. LUNGS: Rhonchi, wheezes. HEART: S1, S2. No gallop or murmur. ABDOMEN: Soft. No masses or megaly. PELVIC AND RECTAL: Deferred. EXTREMITIES: No clubbing, cyanosis. NEUROLOGIC: Grossly within normal limits. LABORATORY DATA: BMP revealed hyperkalemia of 5.2 on 05/06, normalizes today. Glucose as high as 224. Lactic acid elevated on admission. WBC 11,600, today is 11,200, possible steroids effects; hemoglobin 13.1 g/dL; platelets 178,000. MICROBIOLOGY DATA: Bronchoscopy specimens were sent today and obviously they are all pending so far. RADIOLOGY EVALUATION: Chest x-ray revealed no pulmonary infiltrates. ASSESSMENT: 1. Bronchial asthma-chronic obstructive pulmonary disease. 2. History of alpha-1 antitrypsin deficiency. 3. History of aseptic necrosis hips, status post bilateral total hip replacement and right shoulder replacement. 4. Obesity. SUGGESTIONS: At present, no indication for systemic antibiotic. Continue systemic steroids. We will have case supervisor address the issue of the patient's inability to fill prescriptions for inhaled steroids, which we have emphasized with Dr. Carrillo, she must be using to try to prevent episode of exacerbation of COPD. Dr. Dewitt, thank you for requesting my suggestions. <ELECTRONICALLY SIGNED> By: Juan Miller MD 05/08/18 1314 1443 1837 Juan Miller MD /nt
[2018-05-04 14:36] LABS: BE(vivo) -3.9 mmol/L (-2 to +3); PO2 90.3 mmHg (80.0-100.0); pH 7.474 (7.360-7.450); sO2 97.5 % (92.0-98.0)
[2018-05-04 14:43] LABS: ABSOLUTE NEUTROPHILS 6.4 thou/uL (1.4-8.2); BASOPHILS 0.5 % (0.0-2.0); EOSINOPHILS 0.7 % (0.0-3.0); HEMATOCRIT 40.9 % (37.0-47.0); HEMOGLOBIN 13.6 gm/dL (12.0-15.0); LYMPHOCYTES 24.7 % (24.0-44.0); MCH 27.1 pg (26.0-34.0); MCHC 33.3 g/dL (28.0-37.0); MCV 81.6 fL (80.0-100.0); MONOCYTES 7.5 % (1.0-8.0); PLATELET COUNT 199 thou/uL (150-400); POLYS 66.6 % (36.0-66.0); RBC 5.01 mil/uL (4.20-5.00); RDW 14.7 % (10.5-14.5); WBC 9.6 thou/uL (4.0-11.0)
[2018-05-04 14:48] LABS: CALCIUM 9.2 mg/dL (8.5-10.1); CREATININE 0.9 mg/dL (0.6-1.0); POTASSIUM 3.9 mmol/L (3.5-5.1)
[2018-05-04 15:04] LABS: LARGE PLATELETS RARE
[2018-05-04 17:08] VITALS: BP 164/70
[2018-05-04 17:58] VITALS: BP 163/65
[2018-05-04 20:32] VITALS: BP 187/65
[2018-05-05 01:22] LABS: HEMATOCRIT 38.9 % (37.0-47.0); HEMOGLOBIN 12.9 gm/dL (12.0-15.0); MCH 27.2 pg (26.0-34.0); MCHC 33.3 g/dL (28.0-37.0); MCV 81.7 fL (80.0-100.0); RBC 4.76 mil/uL (4.20-5.00); WBC 9.7 thou/uL (4.0-11.0)
[2018-05-05 01:31] LABS: CALCIUM 9.2 mg/dL (8.5-10.1); CREATININE 1.1 mg/dL (0.6-1.0); POTASSIUM 4.3 mmol/L (3.5-5.1)
[2018-05-05 04:10] VITALS: BP 159/41
[2018-05-05 07:35] VITALS: BP 190/94
[2018-05-05 16:41] VITALS: BP 162/88
[2018-05-05 19:15] VITALS: BP 182/79
[2018-05-06 04:00] VITALS: BP 152/69
[2018-05-06 05:31] LABS: ABSOLUTE NEUTROPHILS 10.5 thou/uL (1.4-8.2); BASOPHILS 0.2 % (0.0-2.0); HEMATOCRIT 38.6 % (37.0-47.0); HEMOGLOBIN 12.7 gm/dL (12.0-15.0); LYMPHOCYTES 7.1 % (24.0-44.0); MCH 27.2 pg (26.0-34.0); MCHC 32.9 g/dL (28.0-37.0); MCV 82.4 fL (80.0-100.0); MONOCYTES 1.8 % (1.0-8.0); PLATELET COUNT 168 thou/uL (150-400); POLYS 90.9 % (36.0-66.0); RBC 4.69 mil/uL (4.20-5.00); RDW 15.1 % (10.5-14.5); WBC 11.6 thou/uL (4.0-11.0)
[2018-05-06 05:47] LABS: CREATININE 0.9 mg/dL (0.6-1.0); POTASSIUM 5.2 mmol/L (3.5-5.1)
[2018-05-06 08:15] VITALS: BP 135/69
[2018-05-06 10:01] VITALS: BP 135/69
[2018-05-06 19:59] VITALS: BP 152/71
[2018-05-07 04:45] VITALS: BP 136/70
[2018-05-07 06:44] LABS: ABSOLUTE NEUTROPHILS 10.1 thou/uL (1.4-8.2); BASOPHILS 0.1 % (0.0-2.0); HEMATOCRIT 39.5 % (37.0-47.0); HEMOGLOBIN 13.1 gm/dL (12.0-15.0); LYMPHOCYTES 7.5 % (24.0-44.0); MCH 27.1 pg (26.0-34.0); MCHC 33.1 g/dL (28.0-37.0); MONOCYTES 2.5 % (1.0-8.0); PLATELET COUNT 178 thou/uL (150-400); POLYS 89.9 % (36.0-66.0); RBC 4.81 mil/uL (4.20-5.00); RDW 14.8 % (10.5-14.5); WBC 11.2 thou/uL (4.0-11.0)
[2018-05-07 06:51] LABS: CALCIUM 8.8 mg/dL (8.5-10.1); CREATININE 0.9 mg/dL (0.6-1.0); POTASSIUM 4.4 mmol/L (3.5-5.1)
[2018-05-07 08:05] VITALS: BP 151/78
[2018-05-08 01:09] VITALS: BP 183/80
[2018-05-08 08:01] VITALS: BP 153/89
[2018-05-08 19:36] VITALS: BP 153/87
[2018-05-09 07:40] VITALS: BP 159/78
[2018-05-09 10:49] LABS: MCH 27.4 pg (26.0-34.0); MCHC 33.3 g/dL (28.0-37.0); MCV 82.4 fL (80.0-100.0); PLATELET COUNT 191 thou/uL (150-400); RDW 14.8 % (10.5-14.5)
[2018-05-09 10:56] LABS: CALCIUM 8.9 mg/dL (8.5-10.1); CREATININE 1.2 mg/dL (0.6-1.0); POTASSIUM 4.1 mmol/L (3.5-5.1)
[2018-05-09 11:21] LABS: ABSOLUTE NEUTROPHILS 8.6 thou/uL (1.4-8.2); PLATELET ESTIMATE NORMAL
[2018-05-09 19:33] VITALS: BP 155/79
[2018-05-10 07:35] VITALS: BP 175/81
[2018-05-10] MEDS ORDERED: PREDNISONE 10 M10 M1 PO (16:22)
[2018-05-10 18:53] VITALS: BP 175/81
== END 2018-05-10 19:13 | disposition home or self-care (01) | DRG 166 ==
LOC: ER 14:06 → 4E 16:38 → EROBS 16:38 → 4E 17:14 → SICU 05-07 18:35
PROVIDERS: Emergency Medicine; Hospitalist
PROC: 05HY33Z Insertion of Infusion Device into Upper Vein, Percutaneous Approach (ICD-10-PCS; principal; 2018-05-05)
PROC: 0B9F8ZX Drainage of Right Lower Lung Lobe, Via Natural or Artificial Opening Endoscopic, Diagnostic (ICD-10-PCS; 2018-05-07)
DX: J45.901 Unspecified asthma with (acute) exacerbation (principal); J96.01 Acute respiratory failure with hypoxia; N17.9 Acute kidney failure, unspecified; E87.2 Acidosis; J44.1 Chronic obstructive pulmonary disease with (acute) exacerbation; Z68.41 Body mass index [BMI] 40.0-44.9, adult; Z96.643 Presence of artificial hip joint, bilateral; M10.9 Gout, unspecified; K21.9 Gastro-esophageal reflux disease without esophagitis; J44.9 Chronic obstructive pulmonary disease, unspecified; E11.9 Type 2 diabetes mellitus without complications; F32.9 Major depressive disorder, single episode, unspecified; Z96.611 Presence of right artificial shoulder joint; H40.9 Unspecified glaucoma; E66.3 Overweight; E66.9 Obesity, unspecified; E88.01 Alpha-1-antitrypsin deficiency; F41.9 Anxiety disorder, unspecified; G47.33 Obstructive sleep apnea (adult) (pediatric); T38.0X5A Adverse effect of glucocorticoids and synthetic analogues, initial encounter; Z79.899 Other long term (current) drug therapy; Z83.79 Family history of other diseases of the digestive system; Z86.711 Personal history of pulmonary embolism; Z98.49 Cataract extraction status, unspecified eye; Z88.6 Allergy status to analgesic agent; Z88.1 Allergy status to other antibiotic agents; Z88.0 Allergy status to penicillin; Z88.2 Allergy status to sulfonamides; Z88.8 Allergy status to other drugs, medicaments and biological substances; Z87.891 Personal history of nicotine dependence
CPT/HCPCS: 10783; 15002; 27001

== ENCOUNTER 2018-08-10 18:23 | Inpatient (IN) | payer OTHER ==
[~2018-08-10] VITALS: Ht 162.6 cm; Wt 104.8 kg
--- NOTE | ~2018-08-10 | HC ---
[facility] [place] [address] CONSULTATION Name: MICHAEL MONTANA Room #: 359-P ADM IN M.R.#: [id number] Admission: 08/10/18 Attend Phys: Gal Clinton MD Discharge: Date of : 51 Report #: [id number] THIS REPORT FOR: //name// CC: Gal Gómez DATE OF SERVICE: 08/11/2018 REFERRAL PHYSICIAN: Dr. Clinton. REASON FOR REFERRAL: Respiratory distress. HISTORY OF PRESENT ILLNESS: The patient is a 67-year-old white female who presents to the Emergency Room with respiratory distress. A pulmonary consultation was requested. The patient is known by this physician. She has known alpha-1 antitrypsin deficiency. She has been on replacement therapy for many years, but few years ago insurance refused to pay for the medication. Ever since then, she has had trouble with recurrent COPD exacerbation. I believe her coverage stopped around 2016. In 2017, she has had several hospitalizations. In 2018, she has had 3 hospitalizations, last one being 04/2018. She has done fairly well until the day of admission when she developed acute onset of dyspnea, bronchospasm. The patient also notes that in the past, she underwent therapeutic bronchoscopy by Dr. Damon. She remembers that she felt very well following bronchoscopy which was felt to be therapeutic due to mucus plugging. She is requesting such a therapeutic bronchoscopy today. Of note, chest x-ray did not show any evidence of atelectasis. Lung garcia are clear. Otherwise, she denies any recent febrile illness, chest pain, productive cough. PAST MEDICAL HISTORY: Alpha-1 antitrypsin deficiency, no longer on replacement therapy for the last few years, COPD, severe impairment with frequent exacerbations, osteoarthritis, glaucoma, JEAN on CPAP, history of pulmonary embolus, gout, gastroesophageal reflux disease, past history of recurrent pneumonias. PAST SURGICAL HISTORY: Notable for rotator cuff surgery on the right shoulder, bilateral hip replacement for avascular necrosis, tonsillectomy and tubal ligation. ALLERGIES: MORPHINE, WHICH CAUSES HALLUCINATIONS. CEPHALOSPORINS CAUSES RASH. FLUOROQUINOLONE CAUSES RASH. PENICILLIN CAUSES RASH. SULFA CAUSES RASH. DOXYCYCLINE, REACTIONS NOT SPECIFIED. [facility] [address] [place] [address] CONSULTATION Name: MICHAEL MONTANA Room #: 359-P [facility] IN [facility]#: [id number] Admission: 08/10/18 Attend Phys: Gal Clinton MD Discharge: Date of : 51 Report #: [id number] HOME MEDICATIONS: Zoloft, Mucinex, Prevacid, Seroquel, Xopenex nebulized and MDI. FAMILY HISTORY: Noncontributory. Both parents . SOCIAL HISTORY: The patient has smoked up until 1981. She denies any alcohol use. The patient is . REVIEW OF SYSTEMS: As mentioned above, otherwise 10-point system review negative. PHYSICAL EXAMINATION: GENERAL: She is awake, alert, appears mildly dyspneic. VITAL SIGNS: Temperature on admission was 100.2 degrees Fahrenheit, pulse is 80, respiratory rate is 20, blood pressure 146/66 mmHg, saturation 97%. HEENT: Normocephalic, atraumatic. NECK: Supple, without lymphadenopathy or thyromegaly. CHEST: Breath sounds are decreased bilaterally, moderate expiratory wheezes. No rales. CARDIOVASCULAR: Normal S1, S2. There is no murmur or gallop. There is no JVD. There is no carotid bruit. Pulses are 2+/4+ bilaterally. ABDOMEN: Soft, nontender, no organomegaly or masses felt. GENITOURINARY: Deferred. RECTAL: Deferred. EXTREMITIES: There is no edema, cyanosis or clubbing. LABORATORY DATA: Chest x-ray is clear. Electrolytes are normal. Liver enzymes are normal. WBC 5700, hemoglobin is 12.5, platelets are normal. Albumin 3.5. IMPRESSION: 1. Acute respiratory distress in this 67-year-old white female due to exacerbation of chronic obstructive pulmonary disease. 2. Alpha-1 antitrypsin deficiency. 3. Obstructive sleep apnea on home CPAP. 4. Gastroesophageal reflux disease. 5. Remote history of pulmonary embolus. RECOMMENDATIONS: Agree with broad-spectrum antibiotics, corticosteroids and bronchodilators. DVT and GI prophylaxis recommended. In regards to recurrent exacerbations and hospitalizations, she will benefit from close outpatient monitoring and perhaps even home visiting nurse. It is unclear why insurance stopped paying for alpha-1 antitrypsin. Exploring this may be helpful as overall cost for the patient's care may clearly be better with maintenance alpha 1 antitrypsin and embedded with Prolastin replacement [address] [address] CONSULTATION Name: MICHAEL MONTANA Room #: 359-P ADM IN M.R.#: [id number] Admission: 08/10/18 Attend Phys: Gal Clinton MD Discharge: Date of : 51 Report #: [id number] therapy than recurrent hospitalizations. Thank you for this consultation. <ELECTRONICALLY SIGNED> By: Sven Marie MD 08/12/18 1624 1442 0039 Sven Marie MD /nt
--- NOTE | ~2018-08-10 | PATH ---
[facility] [address] [place] [address] PATHOLOGY RPT PROCEDURE Name: MICHAEL MONTANA Room #: 227-P ADM IN M.R.#: [id number] Admission: 08/10/18 Date of : 52 Discharge: Report #: [id number] Path Case #: [id number] Note [facility] Accession Number: [id number] TESTS RESULT FLAG UNITS REF RANGE LAB Clinician Provided Cytology Information No. of containers..01 Other (Miscellaneous) Source: DEN BAL DIAGNOSIS: 02 DEN BAL NEGATIVE FOR MALIGNANT CELLS. NORMAL BRONCHIAL CELLS AND MACROPHAGES ARE PRESENT. THIS INTERPRETATION INCLUDES EVALUATION OF A CELL BLOCK. Signed out by: 02 Ariel Lemus MD, Pathologist NPI- [id number] Performed by: 01 Joya Nunes, Associate Theatre Professor ([facility]) Gross description: 01 20ML, COLORLESS, CLEAR /LCS FLAG LEGEND: L-Low Normal,H-High Normal,LL-Alert Low,HH-Alert High <-Panic Low,>-Panic High,A-Abnormal,AA-Critical Abnormal Performed at: [address] [place] [address] Leon Garcia MD, [address] [address] Cristina Bergman MD, Performed at: [address], [place], [place] [id number] MD Leon Garcia MD Phone: [phone]
--- NOTE | ~2018-08-10 | HC ---
[facility] [place] [address] CONSULTATION Name: MICHAEL MONTANA Room #: 359-P ADM IN M.R.#: [id number] Admission: 08/10/18 Attend Phys: Reed Méndez Discharge: Date of : 51 Report #: [id number] THIS REPORT FOR: //name// CC: Reed Gómez DATE OF SERVICE: 08/12/2018 CONSULTATION: Infectious diseases. HISTORY OF PRESENT ILLNESS: The patient is a 67-year-old white female who comes to the hospital on 08/08 complaining of increased shortness of breath for about 2 days. She notes that she has been diagnosed with alpha-1 antitrypsin deficiency and was doing well on replacement therapy until her insurance company cut off this treatment probably due to its high cost. Since then, she has had repeated exacerbations of her lung disease with hospitalizations. In this setting, the patient comes to the ER with another one of her exacerbations. The patient's care was complicated by a past history of C. difficile colitis in 2012. She had severe disease with multiple recurrences before finally clearing under the care of Dr. Miller. She has told her doctor that she will not take any antibiotics unless personally authorized by Dr. Miller. PAST MEDICAL HISTORY: Significant for the underlying COPD, associated with alpha-1 antitrypsin deficiency. She has a history of sleep apnea, pulmonary emboli, gout, reflux, diabetes, depression. PAST SURGICAL HISTORY: Includes bilateral hip replacements, tubal ligation and a shoulder replacement. ALLERGIES: THE PATIENT HAS ALLERGIES TO PENICILLIN, CEPHALOSPORINS, SULFA, DOXYCYCLINE AND LEVAQUIN, WHICH ALL CAUSE RASHES. SHE HAS A HISTORY OF ADVERSE REACTIONS TO MORPHINE, WHICH IS MOSTLY PSYCHOLOGICAL. MEDICATION RECONCILIATION: The patient's current medications include vitamin D 50,000 units weekly, methylprednisolone 80 mg t.i.d., albuterol inhaler, quetiapine 50 mg at bedtime, sertraline 150 mg at bedtime, heparin 5000 units b.i.d., famotidine 20 mg daily, insulin sliding scale, guaifenesin 1200 mg twice a day, p.r.n. glucagon, p.r.n. glucose, p.r.n. Tylenol, p.r.n. MiraLax, p.r.n. Zofran and flu vaccine. FAMILY HISTORY: Noncontributory. SOCIAL HISTORY: The patient is . She quit using tobacco 35 years ago. No history of alcohol. [place] [address] CONSULTATION Name: MICHAEL MONTANA Room #: 359-P [facility] IN M.R.#: [id number] Admission: 08/10/18 Attend Phys: Reed Méndez Discharge: Date of : 51 Report #: [id number] PHYSICAL EXAMINATION: GENERAL: The patient appears uncomfortable, not in any distress. VITAL SIGNS: Show maximum temperature 100.2. She has generally not been febrile with this exacerbation. She appears overall cushingoid with the rooney like facies. The mental status appears appropriate and normal. ENT: Negative. Mucous membranes are normal. No adenopathy. CARDIOVASCULAR: Heart sounds are normal. LUNGS: Coarse and diminished breath sounds. ABDOMEN: Belly is obese, soft, not tender. EXTREMITIES: Unremarkable. The white count was 5000 in the ER, up to 11.6 after high dose steroids. Hemoglobin 13.3, hematocrit 40%, platelets 187,000. Electrolytes are normal. BUN 19, creatinine 1.2. The glucose was measured at 200. Chest x-ray shows no infiltrates. ASSESSMENT AND PLAN: In summary, the patient with chronic obstructive pulmonary disease associated with alpha-1 antitrypsin deficiency, who was doing worse since replacement therapy, has been refused coverage by her insurance. She now presents to the hospital with another exacerbation of her chronic obstructive pulmonary disease without evidence of acute infection. The patient does not have fevers or chills. She is not complaining of a productive purulent cough. She has no infiltrates on chest x-ray. She has a history of C. difficile colitis in 2012. At this point, I believe the patient should be treated for exacerbation of COPD without antibiotic therapy. She developed more specific signs suggestive of infection. We could consider a broad antibiotic plus a probiotic therapy. However, this time it appears this is an exacerbation without an infection component. I appreciate the opportunity of input in the care of the patient. I will be happy to follow her through the weekend. Dr. Miller returns on Monday. By: [id number] Francis Saunders MD /nt
--- NOTE | ~2018-08-10 | EKG ---
[place] [address] 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 : 1950 Requested By: Stevan Singleton Order Number: [id number] MD: Duane Miller Measurements Intervals [place] Rate: 96 P: 36 IN: 169 QRS: -43 QRSD: 95 T: 91 QT: 371 QTc: 469 Interpretive Statements Sinus rhythm Left axis deviation Abnormal R-wave progression, late transition Nonspecific T abnormalities, lateral leads Compared to ECG 01/05/2018 15:34:04 Left-axis deviation now present T-wave abnormality now present Sinus tachycardia no longer present Atrial premature complex(es) no longer present Left anterior fascicular block no longer present ST (T wave) deviation no longer present Electronically Signed On 08-12-2018 16:45:31 CDT by Duane Miller [email or web address] <ELECTRONICALLY SIGNED> By: Duane Miller MD 08/12/18 1645 23 23 Duane Miller MD /EPI
[2018-08-10 19:43] LABS: ABSOLUTE NEUTROPHILS 3.9 thou/uL (1.4-8.2); BASOPHILS 0.5 % (0.0-2.0); EOSINOPHILS 0.1 % (0.0-3.0); HEMATOCRIT 36.9 % (37.0-47.0); HEMOGLOBIN 12.5 gm/dL (12.0-15.0); LYMPHOCYTES 11.1 % (24.0-44.0); MCH 27.2 pg (26.0-34.0); MCHC 33.7 g/dL (28.0-37.0); MCV 80.8 fL (80.0-100.0); MONOCYTES 9.5 % (1.0-8.0); PLATELET COUNT 165 thou/uL (150-400); POLYS 78.8 % (36.0-66.0); RBC 4.57 mil/uL (4.20-5.00)
[2018-08-10 19:50] LABS: ANION GAP 15 mmol/L (7-16); BUN 9 mg/dL (7-18); CALCIUM 8.6 mg/dL (8.5-10.1); CHLORIDE 101 mmol/L (98-107); CO2 23 mmol/L (21-32); CREATININE 1.1 mg/dL (0.6-1.0); GLUCOSE 122 mg/dL (74-106); POTASSIUM 3.1 mmol/L (3.5-5.1); SODIUM 139 mmol/L (136-145)
[2018-08-10 19:59] LABS: ALBUMIN 3.5 g/dL (3.4-5.0); SGOT 20 U/L (15-37); SGPT 13 U/L (30-65); TOTAL BILIRUBIN 0.3 mg/dL (<0.1-1.0); TOTAL PROTEIN 7.2 g/dL (6.4-8.2); TROPONIN-I <0.06 ng/mL (<0.06)
[2018-08-10 21:20] VITALS: BP 132/49
[2018-08-10 21:50] VITALS: BP 154/74
[2018-08-11] VITALS: BP 112/48
[2018-08-11 04:10] VITALS: BP 126/56
[2018-08-11 06:28] LABS: CALCIUM 9.2 mg/dL (8.5-10.1)
[2018-08-11 06:30] LABS: POTASSIUM 4.3 mmol/L (3.5-5.1)
[2018-08-11 07:17] VITALS: BP 146/66
[2018-08-11 16:11] VITALS: BP 154/72
[2018-08-11 19:31] VITALS: BP 152/76
[2018-08-12 03:43] VITALS: BP 162/75
[2018-08-12 07:57] VITALS: BP 134/62
[2018-08-12 09:35] LABS: HEMOGLOBIN 13.3 gm/dL (12.0-15.0); RDW 15.4 % (10.5-14.5)
[2018-08-12 09:36] LABS: HEMATOCRIT 40.2 % (37.0-47.0); MCH 27.3 pg (26.0-34.0); MCV 82.8 fL (80.0-100.0); RBC 4.85 mil/uL (4.20-5.00); WBC 11.6 thou/uL (4.0-11.0)
[2018-08-12 09:44] LABS: CREATININE 1.2 mg/dL (0.6-1.0); MAGNESIUM 2.5 mg/dL (1.8-2.4)
[2018-08-12 12:00] VITALS: BP 152/65
[2018-08-12 15:50] VITALS: BP 122/65
[2018-08-13 04:04] VITALS: BP 151/67
[2018-08-13 05:49] LABS: HEMOGLOBIN 12.3 gm/dL (12.0-15.0); MCH 26.7 pg (26.0-34.0); MCHC 32.5 g/dL (28.0-37.0); MCV 82.3 fL (80.0-100.0); RBC 4.62 mil/uL (4.20-5.00); RDW 15.8 % (10.5-14.5)
[2018-08-13 06:00] LABS: CALCIUM 9.1 mg/dL (8.5-10.1); CREATININE 0.9 mg/dL (0.6-1.0); MAGNESIUM 2.5 mg/dL (1.8-2.4)
[2018-08-13 06:01] LABS: POTASSIUM 5.1 mmol/L (3.5-5.1)
[2018-08-13 07:44] VITALS: BP 141/75
[2018-08-13 11:34] VITALS: BP 148/72
[2018-08-13 15:22] VITALS: BP 146/78
[2018-08-13 19:45] VITALS: BP 154/72
[2018-08-14 05:42] VITALS: BP 142/67
[2018-08-14 05:53] LABS: HEMOGLOBIN 12.8 gm/dL (12.0-15.0); MCH 27.1 pg (26.0-34.0); MCHC 32.9 g/dL (28.0-37.0); MCV 82.3 fL (80.0-100.0); RBC 4.74 mil/uL (4.20-5.00); RDW 15.7 % (10.5-14.5); WBC 7.5 thou/uL (4.0-11.0)
[2018-08-14 06:04] LABS: CALCIUM 9.4 mg/dL (8.5-10.1); MAGNESIUM 2.4 mg/dL (1.8-2.4); POTASSIUM 4.6 mmol/L (3.5-5.1)
[2018-08-14 11:29] VITALS: BP 1501/80
[2018-08-14 17:34] VITALS: BP 165/83
[2018-08-14 18:10] VITALS: BP 195/96
[2018-08-14 19:48] VITALS: BP 174/92
[2018-08-14 21:57] VITALS: BP 143/59
[2018-08-15 07:46] LABS: HEMATOCRIT 39.1 % (37.0-47.0); HEMOGLOBIN 13.2 gm/dL (12.0-15.0); MCH 27.4 pg (26.0-34.0); MCHC 33.6 g/dL (28.0-37.0); MCV 81.4 fL (80.0-100.0); RBC 4.81 mil/uL (4.20-5.00); RDW 15.3 % (10.5-14.5); WBC 8.5 thou/uL (4.0-11.0)
[2018-08-15 07:57] LABS: CALCIUM 9.2 mg/dL (8.5-10.1); CREATININE 1.1 mg/dL (0.6-1.0); MAGNESIUM 2.4 mg/dL (1.8-2.4); POTASSIUM 4.2 mmol/L (3.5-5.1)
[2018-08-15 19:29] VITALS: BP 157/75
[2018-08-16 06:59] LABS: HEMATOCRIT 38.8 % (37.0-47.0); HEMOGLOBIN 12.9 gm/dL (12.0-15.0); MCHC 33.2 g/dL (28.0-37.0); MCV 81.1 fL (80.0-100.0); RBC 4.78 mil/uL (4.20-5.00); WBC 7.6 thou/uL (4.0-11.0)
[2018-08-16 07:10] LABS: CALCIUM 8.9 mg/dL (8.5-10.1); MAGNESIUM 2.5 mg/dL (1.8-2.4); POTASSIUM 4.2 mmol/L (3.5-5.1)
[2018-08-16 08:15] VITALS: BP 144/82
[2018-08-16 20:20] VITALS: BP 157/81
[2018-08-17 07:10] VITALS: BP 139/72
[2018-08-17 08:25] LABS: HEMATOCRIT 41.9 % (37.0-47.0); HEMOGLOBIN 14.1 gm/dL (12.0-15.0); MCH 27.4 pg (26.0-34.0); MCHC 33.6 g/dL (28.0-37.0); MCV 81.4 fL (80.0-100.0); RBC 5.14 mil/uL (4.20-5.00); WBC 6.9 thou/uL (4.0-11.0)
[2018-08-17 08:33] LABS: CALCIUM 9.3 mg/dL (8.5-10.1); CREATININE 1.1 mg/dL (0.6-1.0); POTASSIUM 3.9 mmol/L (3.5-5.1)
[2018-08-17 20:27] VITALS: BP 138/56
[2018-08-18 07:15] LABS: ABSOLUTE NEUTROPHILS 7.8 thou/uL (1.4-8.2); BASOPHILS 0.3 % (0.0-2.0); EOSINOPHILS 0.2 % (0.0-3.0); HEMATOCRIT 40.6 % (37.0-47.0); HEMOGLOBIN 13.5 gm/dL (12.0-15.0); LYMPHOCYTES 11.7 % (24.0-44.0); MCH 26.9 pg (26.0-34.0); MCHC 33.3 g/dL (28.0-37.0); MONOCYTES 5.4 % (1.0-8.0); PLATELET COUNT 178 thou/uL (150-400); POLYS 82.4 % (36.0-66.0); RBC 5.02 mil/uL (4.20-5.00); RDW 15.2 % (10.5-14.5); WBC 9.5 thou/uL (4.0-11.0)
[2018-08-18 07:31] LABS: ALBUMIN 3.1 g/dL (3.4-5.0); CALCIUM 9.2 mg/dL (8.5-10.1); POTASSIUM 4.2 mmol/L (3.5-5.1); TOTAL BILIRUBIN 0.3 mg/dL (<0.1-1.0); TOTAL PROTEIN 6.9 g/dL (6.4-8.2)
[2018-08-18 08:23] VITALS: BP 140/78
[2018-08-18 20:17] VITALS: BP 139/74
[2018-08-19 08:03] VITALS: BP 127/59
[2018-08-19 21:21] VITALS: BP 152/74
[2018-08-20 07:20] VITALS: BP 134/75
[2018-08-20 19:49] VITALS: BP 129/57
[2018-08-21 08:10] VITALS: BP 146/62
[2018-08-21 19:33] VITALS: BP 123/70
[2018-08-22 07:20] VITALS: BP 103/60
[2018-08-22 07:48] LABS: HEMATOCRIT 37.7 % (37.0-47.0); HEMOGLOBIN 12.6 gm/dL (12.0-15.0); MCH 27.2 pg (26.0-34.0); MCHC 33.4 g/dL (28.0-37.0); MCV 81.4 fL (80.0-100.0); RBC 4.63 mil/uL (4.20-5.00); RDW 15.2 % (10.5-14.5); WBC 8.3 thou/uL (4.0-11.0)
[2018-08-22 08:05] LABS: ALBUMIN 2.8 g/dL (3.4-5.0); CALCIUM 8.7 mg/dL (8.5-10.1); MAGNESIUM 2.3 mg/dL (1.8-2.4); POTASSIUM 4.2 mmol/L (3.5-5.1); TOTAL BILIRUBIN 0.3 mg/dL (<0.1-1.0); TOTAL PROTEIN 6.1 g/dL (6.4-8.2)
[2018-08-22] MEDS ORDERED: PREDNISONE 20 M20 M1 PO (10:53)
[2018-08-22 14:25] VITALS: BP 103/60
== END 2018-08-22 16:14 | disposition home or self-care (01) | DRG 871 ==
LOC: ER 18:23 → 3W 20:10 → EROBS 20:10 → 3W 21:42 → SICU 08-14 17:35 → ENTRNSPT 08-22 15:40 → EDTRNSPTSTS 08-22 15:43 → SICU 08-22 16:14
PROVIDERS: Emergency Medicine; Internal Medicine; Internal Medicine Pulmonary Disease; Nurse Practitioner Family; Pediatrics
PROC: 0B9G7ZX Drainage of Left Upper Lung Lobe, Via Natural or Artificial Opening, Diagnostic (ICD-10-PCS; principal; 2018-08-20)
PROC: 0B9C7ZX Drainage of Right Upper Lung Lobe, Via Natural or Artificial Opening, Diagnostic (ICD-10-PCS; principal; 2018-08-20)
DX: A41.9 Sepsis, unspecified organism (principal); J96.01 Acute respiratory failure with hypoxia; J18.9 Pneumonia, unspecified organism; J44.1 Chronic obstructive pulmonary disease with (acute) exacerbation; E88.01 Alpha-1-antitrypsin deficiency; Z96.643 Presence of artificial hip joint, bilateral; M10.9 Gout, unspecified; M19.90 Unspecified osteoarthritis, unspecified site; G47.33 Obstructive sleep apnea (adult) (pediatric); M81.0 Age-related osteoporosis without current pathological fracture; Z96.611 Presence of right artificial shoulder joint; H40.9 Unspecified glaucoma; K21.9 Gastro-esophageal reflux disease without esophagitis; E11.9 Type 2 diabetes mellitus without complications; F32.9 Major depressive disorder, single episode, unspecified; Z87.01 Personal history of pneumonia (recurrent); Z98.51 Tubal ligation status; Z86.711 Personal history of pulmonary embolism; Z88.5 Allergy status to narcotic agent; Z88.0 Allergy status to penicillin; Z88.2 Allergy status to sulfonamides; Z88.8 Allergy status to other drugs, medicaments and biological substances; Z87.891 Personal history of nicotine dependence
CPT/HCPCS: 10879; 15002; 27000

== ENCOUNTER → 2019-01-11 | Outpatient (CLI) | payer OTHER ==
[~2019-01-11] VITALS: Ht 162.6 cm; Wt 98.4 kg
[~2019-01-11] MED LIST changes: +PREDNISONE 20 M20 M1 PO
--- NOTE | ~2019-01-11 | HPC ---
[facility] [place] [address] PAIN MANAGEMENT CONSULTATION Name: MICHAEL MONTANA Room #: REG [facility].#: [id number] Admission: 01/11/19 ������������������ Attend Phys: Kiel Rose MD Discharge: ������������������ Date of : 52 Report #: [id number] THIS REPORT FOR: //name// CC: Kiel Gómez DATE OF SERVICE: 01/11/2019 PRIMARY CARE PHYSICIAN: Hank Gómez MD CHIEF COMPLAINT: Back pain that involves the lower portion of the back, left and right side. She has some perception of weakness in the legs. HISTORY: The patient is a 68-year-old female who has had a history of sacroiliac joint problems. She has had sacroiliac joint mediated pain. This has been problematic since 2012. She had an episode in 2013 and has had sacroiliac joint injections and gleaned significant benefit from these in the past. She reported greater than 90% improvement in pain with treatment in the past. She has returned today with a desire to undergo an SI joint injection because of worsening of her pain, which is similar to that she has experienced. ALLERGIES: PENICILLIN, SULFA, MORPHINE. MEDICATIONS: Xopenex, Seroquel 50 mg, Prevacid 15 mg, Mucinex 600 mg, 1200 mg taken, Zoloft 100 mg. PAIN CLINIC ASSESSMENT/PQRS: 1. Osteoarthritis. The patient states she is not being treated for osteoarthritis. The patient has not been treated for rheumatoid arthritis. 2. Height 5 feet 4 inches, weight 217 pounds, BMI is 37.2. 3. Vital signs: Blood pressure 131/75, pulse 92, respiratory rate 18, room air saturation 98%. 4. Pain intensity 12/09. 5. Fall risk. The patient has not fallen in the last 3 months. 6. Blood thinner. The patient is not on a blood thinning medication. 7. Hypertension. The patient is being treated for hypertension. 8. Opioids greater than 6 weeks. The patient is receiving medications from the pain clinic. She is not on a regular opioid regimen. 9. Risk assessment tool: Low for opioid use. 10. Functional assessment tool. 11. Recreational drug use. The patient denies use of recreational drugs. 12. Tobacco: The patient has smoked cigarettes is a former smoker. 13. Alcohol. The patient drinks alcoholic beverages on occasion. PHYSICAL EXAMINATION: GENERAL: The patient is a well-developed, well-nourished [place] [address] PAIN MANAGEMENT CONSULTATION Name: MICHAEL MONTANA Room #: REG [facility]#: [id number] Admission: 01/11/19 ������������������ Attend Phys: Kiel Rose MD Discharge: ������������������ Date of : 52 Report #: [id number] her stated age. She is alert and oriented x 3. Her affect is appropriate. Speech is fluent. HEENT: Normocephalic, atraumatic. Extraocular eye muscles intact. Sclerae nonicteric. Mucous membranes are moist. NECK: Without adenopathy or JVD. EXTREMITIES: Upper extremity muscle strength is judged to be 5-/5 for the major muscle groups in the upper extremity. Lower extremity muscle strength is judged to be 5-/5. The patient walks with a slight antalgic gait. Has exquisitely tender areas in the left and the right sacroiliac joint. The patient notes some increased discomfort with flexion, extension as well as the positive Bhavesh's sign. Pelvic compression exacerbate her pain. IMPRESSION: Left and right sacral joint dysfunction. RECOMMENDATIONS: We discussed treatment options with the patient. Risks and benefits of an SI joint injection were discussed. The possible complications of the procedure were reviewed. The patient elects to proceed. PROCEDURE NOTE: The patient was taken to the procedure area. She was assisted in getting on examination table. Her back was sterilely prepped with a Betadine solution and allowed to dry. The right and the left area were visualized using fluoroscopy using the anterior, posterior imaging. The right sacroiliac joint was identified. A 25-gauge needle was then used to numb the area. A 20-gauge spinal needle was then advanced into the SI joint. Contrast provided indicated appropriate spread. A total of 40 mg Depo-Medrol and 20 mg of triamcinolone was injected. The contralateral side was treated in a like fashion. SI joint was identified on the left. A 25-gauge needle was then used to anesthetize the skin. A 20-gauge spinal needle advanced into the area. Contrast media was injected and appropriate spread was noted. A total of 40 mg Depo-Medrol, 20 mg triamcinolone was injected with 0.5% bupivacaine. The patient tolerated the procedure well. She remained in the Pain Clinic for an appropriate amount of time. She will follow up in the future. A total of 34 seconds fluoroscopy time was used. We would like to thank you for letting us participate in her care. We hope she continues to improve. ��������������������������������������������� ���������������������������������������� By: ��������������������������������������������� [id number] Kiel Rose MD /CHRISTINA
[2019-01-11 13:04] VITALS: BP 131/75
--- NOTE | 2019-01-11 13:12 | NUR ---
Pain Clinic Assessment: 1. History of Osteoarthritis: History of Rheumatoid Arthritis: 2. Height: 5 ft. 4 in. 162.6 cm. Weight: 217.0 lb. oz. 98.431 kg. Patient's BMI: 37.2 3. Vital Signs: BP: 131/75 Pulse: 92 Resp: 18 Temp: 02 Sat: 98 ECG Mon: 4. Pain Intensity: 2 5. Fall Risk: Dizziness: Needs help standing or walking: Fallen in the last 3 months: Fall risk comments: 6. Patient on Blood Thinner: None 7. History of Hypertension: Y 8. Opioid Therapy greater than 6 weeks: N Opiate Contract Signed: 9. Risk Assessment Tool Provided: 10. Functional Assessment Tool: 11. Recreational Drug Use: Never Drug Type: Tobacco Use: Former Smoker Tobacco Type: Amount or Packs/day: How Many Years: Alcohol Use: Yes Frequency: Quant:
== END | disposition home or self-care (01) ==
LOC: PAIN 06:53
DX: M53.3 Sacrococcygeal disorders, not elsewhere classified (principal); G89.29 Other chronic pain; I10 Essential (primary) hypertension; J44.1 Chronic obstructive pulmonary disease with (acute) exacerbation; F41.9 Anxiety disorder, unspecified; Z88.0 Allergy status to penicillin; Z88.2 Allergy status to sulfonamides; Z88.8 Allergy status to other drugs, medicaments and biological substances; Z79.899 Other long term (current) drug therapy; Z87.891 Personal history of nicotine dependence; Z98.890 Other specified postprocedural states

== ENCOUNTER → 2019-01-22 | Outpatient (CLI) | payer OTHER | LOC: RAD 13:16 | DX: M19.072 Primary osteoarthritis, left ankle and foot (principal) ==

== ENCOUNTER → 2019-01-28 | Outpatient (CLI) | payer OTHER | LOC: RAD 12:21 | DX: J45.909 Unspecified asthma, uncomplicated (principal); Z96.611 Presence of right artificial shoulder joint ==

== ENCOUNTER 2019-02-10 18:47 | Emergency (ER) | payer OTHER ==
[~2019-02-10] VITALS: Ht 170.2 cm; Wt 104.3 kg
[2019-02-10 19:23] LABS: BE(vivo) -4.4 mmol/L (-2 to +3); HCO3 18.1 mmol/L (22.0-26.0); PCO2 26.9 mmHg (35.0-45.0); PO2 181.6 mmHg (80.0-100.0); pH 7.445 (7.360-7.450); sO2 99.3 % (92.0-98.0)
[2019-02-10 19:57] LABS: ABSOLUTE NEUTROPHILS 6.1 thou/uL (1.4-8.2); BASOPHILS 0.4 % (0.0-2.0); EOSINOPHILS 0.8 % (0.0-3.0); HEMATOCRIT 41.2 % (37.0-47.0); HEMOGLOBIN 13.8 gm/dL (12.0-15.0); LYMPHOCYTES 22.6 % (24.0-44.0); MCH 26.8 pg (26.0-34.0); MCHC 33.4 g/dL (28.0-37.0); MCV 80.1 fL (80.0-100.0); MONOCYTES 6.8 % (1.0-8.0); PLATELET COUNT 177 thou/uL (150-400); POLYS 69.4 % (36.0-66.0); RBC 5.15 mil/uL (4.20-5.00); RDW 18.6 % (10.5-14.5); WBC 8.8 thou/uL (4.0-11.0)
[2019-02-10 20:05] LABS: ANION GAP 13 mmol/L (7-16); BUN 8 mg/dL (7-18); CALCIUM 8.4 mg/dL (8.5-10.1); CHLORIDE 103 mmol/L (98-107); CO2 25 mmol/L (21-32); GLUCOSE 147 mg/dL (74-106); POTASSIUM 3.8 mmol/L (3.5-5.1); SODIUM 141 mmol/L (136-145)
[2019-02-10 20:15] LABS: ALBUMIN 3.5 g/dL (3.4-5.0); SGOT 19 U/L (15-37); SGPT 25 U/L (30-65); TOTAL BILIRUBIN 0.5 mg/dL (<0.1-1.0); TOTAL PROTEIN 7.2 g/dL (6.4-8.2); TROPONIN-I <0.06 ng/mL (<0.06)
[2019-02-10 20:19] LABS: ANISOCYTOSIS 2+; MICROCYTES 2+
[2019-02-10] MEDS ORDERED: PREDNISONE 20 M20 MG PO (21:34)
[2019-02-10] MEDS ORDERED: VENTOLIN HFA 1818 GM INH (21:38)
[2019-02-10] MEDS ORDERED: LEVALBUTER1.25 MG/0. INH (21:38)
[2019-02-10 21:45] VITALS: BP 173/65
--- NOTE | 2019-02-11 00:07 | EKG ---
[address] [place] [address] ELECTROCARDIOGRAM REPORT Name: MICHAEL MONTANA Room #: [facility]P [id number] ������������������ Admission: 02/10/19 ������������������ Attend Phys: Discharge: 02/10/19 ������������������ Date of : 52 Report #: [id number] ����������������������������������������������������������������� [id number] THIS REPORT FOR: //name// [facility] ED Test Date: 2019-02-10 Test Time: 19:02:39 Pat Name: MICHAEL MONTANA Department: Room: Gender: F Director Employment: ANTHONY : 1950 Requested By: Marcy Collado Order Number: [id number] MD: Edinson Ontiveros Measurements Intervals [place] Rate: 106 P: -73 AK: 133 QRS: -75 QRSD: 100 T: 82 QT: 333 QTc: 443 Interpretive Statements Sinus or ectopic atrial tachycardia Left anterior fascicular block Baseline wander Compared to ECG 08/10/2018 19:24:22 Sinus rhythm no longer present Electronically Signed On 02-11-2019 0:07:21 CDT by Edinson Ontiveros [email or web address] ��������������������������������������������� <ELECTRONICALLY SIGNED> ���������������������������������������� By: Edinson Ontiveros MD ��������������������������������������������� 02/11/19 0007 01 01 Edinson Ontiveros MD /EPI
[2019-02-11] MEDS ORDERED: SPIRIVA INH (15:59)
[2019-02-11] MEDS ORDERED: PREDNISONE 20 M20 MG PO (16:00)
== END 2019-02-10 21:45 | disposition home or self-care (01) ==
LOC: ER 18:47
PROVIDERS: Physician Assistant
DX: J96.00 Acute respiratory failure, unspecified whether with hypoxia or hypercapnia (principal); J44.1 Chronic obstructive pulmonary disease with (acute) exacerbation; K21.9 Gastro-esophageal reflux disease without esophagitis; M10.9 Gout, unspecified; G47.30 Sleep apnea, unspecified; E11.9 Type 2 diabetes mellitus without complications; Z87.01 Personal history of pneumonia (recurrent); Z96.643 Presence of artificial hip joint, bilateral; Z79.899 Other long term (current) drug therapy; Z88.0 Allergy status to penicillin; Z88.1 Allergy status to other antibiotic agents; Z88.5 Allergy status to narcotic agent; Z88.2 Allergy status to sulfonamides; Z87.891 Personal history of nicotine dependence

== ENCOUNTER 2019-02-11 14:51 | Inpatient (IN) | payer OTHER ==
[~2019-02-11] VITALS: Ht 162.6 cm; Wt 96.3 kg
[~2019-02-11 14:51] MED LIST changes: +VENTOLIN HFA 1818 GM INH
[2019-02-11 14:55] VITALS: BP 125/51
[2019-02-11 15:09] LABS: HEMATOCRIT 42.7 % (37.0-47.0); HEMOGLOBIN 14.1 gm/dL (12.0-15.0); MCH 26.5 pg (26.0-34.0); MCHC 33.1 g/dL (28.0-37.0); MCV 80.2 fL (80.0-100.0); RBC 5.33 mil/uL (4.20-5.00); RDW 18.4 % (10.5-14.5); WBC 23.9 thou/uL (4.0-11.0)
[2019-02-11 15:16] LABS: BE(vivo) -3.7 mmol/L (-2 to +3); HCO3 18.2 mmol/L (22.0-26.0); PCO2 25.8 mmHg (35.0-45.0); pH 7.467 (7.360-7.450); sO2 99.3 % (92.0-98.0)
--- NOTE | 2019-02-11 15:23 | NUR ---
PT MOVED TO ER RM 6
[2019-02-11 15:28] LABS: ANION GAP 19 mmol/L (7-16); BUN 10 mg/dL (7-18); CALCIUM 9.8 mg/dL (8.5-10.1); CHLORIDE 101 mmol/L (98-107); CO2 18 mmol/L (21-32); CREATININE 1.3 mg/dL (0.6-1.0); GLUCOSE 191 mg/dL (74-106); POTASSIUM 4.7 mmol/L (3.5-5.1); SODIUM 138 mmol/L (136-145)
[2019-02-11 15:38] LABS: TROPONIN-I <0.06 ng/mL (<0.06)
[2019-02-11] MEDS ORDERED: SPIRIVA INH (15:59)
[2019-02-11] MEDS ORDERED: PREDNISONE 20 M20 MG PO (16:00)
--- NOTE | 2019-02-11 18:19 | NUR ---
CONSULTED TO PLACE A PIV FOR CT- DISCUSSED MIDLINE PLACEMENT WITH THE PATIENT AND SHE AGREED. THE RIGHT UPPER ARM BASILIC WAS WIDLEY PATENT. A #4F POWER MIDLINE WAS PLACED PER POLICY. LINE WAS TRIMMED TO 15CM AND ADVANCED WITHOUT DIFFICULTY. LINE SECURED AND RELEASED FOR USE
[2019-02-11 18:22] VITALS: BP 107/52
[2019-02-11 19:24] VITALS: BP 117/59
[2019-02-11 19:50] VITALS: BP 120/44
[2019-02-12 04:23] VITALS: BP 109/65
--- NOTE | 2019-02-12 05:11 | NUR ---
Received pt from ED at 2145. Pt resting in bed. Was able to ambulate self to bed. No skin issues. On room. Uses Bipap at night. Has a right upper arm midline with NS @75. She feels some back pain when she coughs. On Tele running SR. She refused to wear some socks and the bed alarm. Consults already called in. Denies SOA. Call light within reach. Will continue to monitor.
[2019-02-12 07:19] LABS: HEMATOCRIT 38.1 % (37.0-47.0); HEMOGLOBIN 12.4 gm/dL (12.0-15.0); MCH 26.3 pg (26.0-34.0); MCHC 32.7 g/dL (28.0-37.0); MCV 80.6 fL (80.0-100.0); RBC 4.73 mil/uL (4.20-5.00); RDW 18.6 % (10.5-14.5); WBC 9.2 thou/uL (4.0-11.0)
[2019-02-12 07:29] LABS: CALCIUM 9.5 mg/dL (8.5-10.1); CREATININE 0.9 mg/dL (0.6-1.0); POTASSIUM 4.1 mmol/L (3.5-5.1)
[2019-02-12 07:43] VITALS: BP 130/60
--- NOTE | 2019-02-12 08:12 | EKG ---
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 : 1950 Requested By: Brigido Barnett Order Number: [id number] MD: Duane Miller Measurements Intervals [place] Rate: 110 P: -29 SD: 156 QRS: -72 QRSD: 88 T: 74 QT: 341 QTc: 462 Interpretive Statements Sinus tachycardia Left anterior fascicular block Abnormal R-wave progression, late transition Baseline wander in lead(s) II,III Compared to ECG 02/10/2019 19:02:39 No significant changes Electronically Signed On 02-12-2019 8:12:18 CDT by Duane Miller [email or web address] ��������������������������������������������� <ELECTRONICALLY SIGNED> ���������������������������������������� By: Duane Miller MD ��������������������������������������������� 02/12/19 0812 150 150 Duane Miller MD /EPI
[2019-02-12 11:37] VITALS: BP 122/59
--- NOTE | 2019-02-12 11:58 | NUR ---
Received awake and oriented. With Midline at Right upper arm, on Normal Saline at 75cc/hr. With IV at Right forearm. On regular nebulizations. on C-pap during night time, machine at bedside Had pulmo consult this morning. On Blood sugar monitoring, Pre-breakfast 145mg/dl, no insulin given as per sliding scale prescription. Patient handed over to [facility] via wheelchair, care handover given, possesions handed over as well.
[2019-02-12 19:35] VITALS: BP 134/66
[2019-02-13 06:17] LABS: HEMOGLOBIN 11.5 gm/dL (12.0-15.0); MCH 26.8 pg (26.0-34.0); MCHC 32.9 g/dL (28.0-37.0); MCV 81.3 fL (80.0-100.0); RBC 4.3 mil/uL (4.20-5.00); RDW 18.6 % (10.5-14.5); WBC 11.1 thou/uL (4.0-11.0)
[2019-02-13 06:28] LABS: CALCIUM 8.5 mg/dL (8.5-10.1); POTASSIUM 4.3 mmol/L (3.5-5.1)
--- NOTE | 2019-02-13 07:17 | NUR ---
ASSUMED CARE AT 1900, ASSESSMENT COMPLETED. PT DENIED PAIN OR NAUSEA. REPORTS COUGHING EASILY WHEN SHE DEEP BREATHS; HAS A POWERFUL, DRY/NONPRODUCTIVE COUGH; GIVEN COUGH SYRUP ONCE OVERNIGHT. IV FLUIDS INFUSING. SENT H1N1 NASAL SWAB TO LAB. HS ACCUCHECK WAS 185, DISCUSSED WITH PT AND DID NOT GIVE INSULIN. WORE CPAP OVERNIGHT. NO OTHER CONCERNS, STABLE AT 0700 HANDOFF.
[2019-02-13 07:45] VITALS: BP 158/82
--- NOTE | 2019-02-13 10:53 | NUR ---
ASSUMED CARE OF PATIENT THIS MORNING. SHE IS A&OX4. UP AD LOTUS. SHE HAS NOT COMPLAINED OF ANY PAIN OR DISCOMFORT THIS MORNING. SHE IS AN ACCUCHECK AC/HS SHE RECEIVED 3 UNITS OF INSULIN FOR A BLOOD SUGAR OF 155. SHE WEARS A CPAP AT NIGHT AND SOMETIMES WHILE ASLEEP DURING THE DAY. ON ROOM AIR WHILE AWAKE. SHE HAS NS GOING AT 75 ML/HR. PATIENT IS CURRENTLY LYING IN BED WITH CALL LIGHT WITHIN REACH.
--- NOTE | 2019-02-13 11:17 | HC ---
[facility] [place] [address] CONSULTATION Name: MICHAEL MONTANA Room #: 222-P ADM IN M.R.#: [id number] Admission: 02/11/19 ������������������ Attend Phys: Gal Clinton MD Discharge: ������������������ Date of : 52 Report #: [id number] THIS REPORT FOR: //name// CC: Marin Gómez DATE OF SERVICE: 02/12/2019 INFECTIOUS DISEASE CONSULTATION REASON FOR CONSULTATION: Acute exacerbation of chronic obstructive pulmonary disease, question pulmonary infiltrates, antibiotic management if needed. HISTORY OF PRESENT ILLNESS: A 68-year-old white woman known to me for many years, is readmitted with increasing shortness of breath and cough and fever up to 101 at home. The patient relates she visited with Dr. Gómez, subsequently with Dr. Rios, historian dramatic arts who prescribed some steroids, which she did take, she did not feel improvement and visited the Emergency Room with increasing cough, fever and some chest wheezes. She has alpha-1 antitrypsin deficiency, chronic exacerbation of her COPD and multiple previous admissions. PAST MEDICAL HISTORY: 1. She has alpha-1 antitrypsin deficiency. No replacement because of economic reasons. 2. Acute exacerbation of chronic obstructive pulmonary disease. 3. Reactive airway disease. 4. Morbid obesity. Right total shoulder replacement, bilateral hip replacement. 5. Glaucoma. 6. Previous C. difficile colitis. 7. Multiple drug allergies. DRUG ALLERGIES: PENICILLIN RASH, SULFA RASH, MORPHINE NAUSEA, DOXYCYCLINE AND CEFOTETAN AND LEVOFLOXACIN. MEDICATIONS: Currently the patient is on treatment with pantoprazole 40 mg p.o. daily, methylprednisolone 62.5 mg IV q.i.d., enoxaparin 40 mg subcutaneous at bedtime, insulin lispro per sliding scale a.c. and at bedtime, quetiapine 50 mg at bedtime, sertraline 150 mg at bedtime, Atrovent, albuterol inhalation treatments, p.r.n. glucose, glucagon, p.r.n. acetaminophen, polyethylene glycol, p.r.n. ondansetron. Guaifenesin 1200 mg b.i.d., albuterol inhalation treatment as needed. SOCIAL HISTORY: See H and P, old records. [address] [address] CONSULTATION Name: MICHAEL MONTANA Room #: 222-P [facility] IN M.R.#: [id number] Admission: 02/11/19 ������������������ Attend Phys: Gal Clinton MD Discharge: ������������������ Date of : 52 Report #: [id number] FAMILY HISTORY: See H and P, old records. REVIEW OF SYSTEMS: As above and see Oumar smith P. PHYSICAL EXAMINATION: GENERAL: Well-developed, nontoxic looking woman known to have documentation of fevers on 02/10/2019 or 02/11/2019. Today's temperature is 98.1, pulse 79, respirations 20, BP 130/60, O2 saturation is 93% on room air. She did use a CPAP at nighttime. HEENMT: Normal. NECK: Supple. No thyromegaly or lymphadenopathy. BREASTS: Deferred. LUNGS: Few wheezes here and there. Occasional episode of cough, she moves. No bronchial secretions whatsoever. HEART: S1, S2. No gallop or murmur. ABDOMEN: Soft, no masses or megaly. EXTREMITIES: No pretibial edema. NEUROLOGIC: Grossly within normal limits. LABORATORY DATA: Sodium 142, potassium 4.1, chloride 106, BUN 12, creatinine 0.9, glucose 147, 191, 158. Lactic acid was elevated. This is a venous lactic acid and I have no clear cut interpretation for those. NT-proBNP 380. CBC 9200, hemoglobin 12.4 g/dL, platelets 162,000. The white blood cell count differential on 02/10/2019 reveals 69% segmented neutrophils. The patient has rapid influenza test for influenza A and B and those were negative. She had a set of blood gases on 02/11/2019 that revealed a pH of 7.46, pCO2 25, which is low, pO2 of 177 on 6 liters of oxygen nasal cannula, bicarbonate decreased at 18.2 millimoles per liter, lactate elevated 5.12 millimoles per liter. Chest x-ray revealed no obvious pulmonary infiltrates. RADIOLOGY EVALUATION: CT scan of the chest PE protocol revealed no pulmonary embolism, possible some atelectasis, infiltrate, posterior aspect right upper lobe, interstitial pneumonitis is entertained. Dried humeral head replacement noted. Atrophic pancreas. Venous ultrasound of the lower extremities negative for DVT. ASSESSMENT: 1. Acute exacerbation of chronic obstructive pulmonary disease. 2. Obesity. 3. Alpha-1 antitrypsin deficiency. 4. 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 SUGGESTIONS: No leukocytosis, no obvious documented fever. Consequently do not believe we might be dealing with an acute infection, but the CT scan nonetheless, a bit worrisome and I will get ESR and CRP today, if those [facility] [address] [place] [address] CONSULTATION Name: MICHAEL MONTANA Room #: 222-P ADM IN M.R.#: [id number] Admission: 02/11/19 ������������������ Attend Phys: Gal Clinton MD Discharge: ������������������ Date of : 52 Report #: [id number] elevated, may consider some oral or parenteral antibiotics. Dr. Gal Clinton, thank you for requesting my suggestions. ��������������������������������������������� <ELECTRONICALLY SIGNED> ���������������������������������������� By: Juan Miller MD ��������������������������������������������� 02/13/19 1117 0944 2145 Juan Miller MD /nt
--- NOTE | 2019-02-13 13:58 | NUR ---
INITIAL ASSESSMENT: SW reviewed chart and opened case due to length of stay. Discussed with nursing and attending physician. [facility] . Pt was admitted from home due to exacerbation of asthma. Pt with hx of Alpha 1 antitrypsine deficiency/COPD. Pt is on IV steroids. SW met with pt at bedside. Introduced role of SW. Pt known to SW from previous hospitalizations. Pt reports she lives at home with her spouse. Prior to admission, pt was independent with ADLs. Pt has 4 steps to enter her home. No steps inside. Pt has a cane/walker/cpap machine. Pt spouse were in [place], [place] for the winter and returned in the middle of December. Pt does have an airway clearance vest through [employer], which she uses twice a day for 30 minutes per session. Pt states she has lost weight and they are working on getting her a properly fitted vest. Pt does breathing treatments at home. Pt's PCP is Dr. Gómez. Pulm: Dr. Rios. Plan is for pt to discharge home when medically stable. SW is following to assist as needed with discharge planning.
--- NOTE | 2019-02-13 19:37 | NUR ---
I AGREE WITH NURSING ASSESSMENT DONE BY STEW/ALICE.
[2019-02-13 21:33] VITALS: BP 153/82
[2019-02-14 08:15] VITALS: BP 163/78
--- NOTE | 2019-02-14 11:02 | NUR ---
ASSUMED CARE OF PATIENT THIS MORNING. PATIENT IS A&OX4. SHE IS UP AD LOTUS. SHE HAS NOT COMPLAINED OF ANY PAIN OR DISCOMFORT THIS MORNING. NO MEDICATIONS WERE ON THE PATIENTS eMAR THIS MORNING. HER BLOOD SUGAR WAS TAKEN THIS MORNING, IT WAS 148, NO INSULIN WAS GIVEN. SHE WEARS A CPAP AT NIGHT AND ON ROOM AIR DURING THE DAY. SHE IS CURRENTLY LYING IN BED WITH CALL LIGHT WITHIN REACH.
--- NOTE | 2019-02-14 12:43 | NUR ---
SW reviewed chart and spoke with nursing and attending physician. Pt is progressing towards goals for discharge. Discharge home is anticipated for tomorrow. SW is following to assist as needed with discharge planning.
[2019-02-14 20:03] VITALS: BP 158/62
--- NOTE | 2019-02-15 04:13 | NUR ---
PATIENT ALERT AND ORIENTED X4. PATRICK LUNGS COARSE WITH [id number]. USES CPAP AT HS ONLY. ACCUCHECK WAS 240, 4 UNITS LISPRO GIVEN. DENIES PAIN. UP BY SELF TO BATHROOM. JAXON MIDLINE PATENT WITH FLUIDS RUNNING. SLEPT MOST OF THE NIGHT.
[2019-02-15 06:12] LABS: BASOPHILS 0.1 % (0.0-2.0); HEMOGLOBIN 11.8 gm/dL (12.0-15.0); LYMPHOCYTES 7.6 % (24.0-44.0); MCH 26.5 pg (26.0-34.0); MCHC 32.8 g/dL (28.0-37.0); MCV 80.8 fL (80.0-100.0); PLATELET COUNT 156 thou/uL (150-400); POLYS 88.3 % (36.0-66.0); RBC 4.45 mil/uL (4.20-5.00); RDW 18.6 % (10.5-14.5)
[2019-02-15 06:34] LABS: ALBUMIN 2.7 g/dL (3.4-5.0); CREATININE 0.8 mg/dL (0.6-1.0); POTASSIUM 4.3 mmol/L (3.5-5.1); TOTAL BILIRUBIN 0.2 mg/dL (<0.1-1.0); TOTAL PROTEIN 5.5 g/dL (6.4-8.2)
[2019-02-15 08:55] VITALS: BP 146/83
--- NOTE | 2019-02-15 12:05 | NUR ---
SW reviewed chart and spoke with nursing and attending physician. Pt is progressing towards goals for discharge. Weekend discharge anticipated. Pt will discharge home when medically stable. Pt has DME in place at home. No SW needs identified at this time, but is available to assist should needs arise.
--- NOTE | 2019-02-15 15:36 | 2DMMODE ---
[facility] [address] [email or web address] [address] 2 D/M-MODE ECHOCARDIOGRAM Name: MICHAEL MONTANA Room #: 222-P ADM IN M.R.#: [id number] ������������� Admission: 02/11/19 ������������� Attend Phys: Gal Clinton MD Discharge: ��� ������������� ��� Date of : 52 Date of Service: 02/15/19 1536 �� Report #: [id number] �������� ��������������������������������������������[id number] THIS REPORT FOR: //name// APPROVED REPORT Study performed: 02/15/2019 13:24:06 EXAM: Comprehensive 2D, Doppler, and color-flow Echocardiogram Patient Location: Echo lab Room #: 222 Status: routine BSA: 2.01 HR: 77 bpm BP: 146/83 mmHg Rhythm: NSR Other Information Study Quality: Adequate Indications HTN, COPD, elevated ntPBNP 2D Dimensions RVDd: 31.22 mm IVSd: 12.70 (7-11mm) LVOT Diam: 22.15 (18-24mm) LVDd: 45.14 mm PWd: 13.38 (7-11mm) Ascending Ao: 32.85 (22-36mm) LVDs: 20.93 (25-40mm) Aortic Root: 36.00 mm IVC: 16.00 mm Volumes Left Atrial Volume (Systole) Single Plane 4CH: 25.96 mL Single Plane 2CH: 30.84 mL LA ESV Index: 17.03 mL/m2 Aortic Valve AoV Peak Shelton.: 1.23 m/s AO Peak Gr.: 6.04 mmHg LVOT Max P.86 mmHg LVOT Max V: 1.10 m/s KRYSTIN Vmax: 3.45 cm2 Mitral Valve E/A Ratio: 2.0 MV Decel. Time: 164.56 ms MV E Max Shelton.: 1.20 m/s [facility] [place] [address] 2 D/M-MODE ECHOCARDIOGRAM Name: MICHAEL MONTANA Room #: 222-P ADM IN M.R.#: [id number] ������������� Admission: 02/11/19 ������������� Attend Phys: Gal Clinton MD Discharge: ��� ������������� ��� Date of : 52 Date of Service: 02/15/19 1536 �� Report #: [id number] �������� ��������������������������������������������[id number] MV A Shelton.: 0.59 m/s MV PHT: 47.72 ms IVRT: 119.95 ms Pulmonary Valve PV Peak Shelton.: 1.05 m/s PV Peak Gr.: 4.43 mmHg Pulmonary Vein P Vein S: 0.76 m/s P Vein D: 0.58 m/s P Vein S/D Ratio: 1.31 Tricuspid Valve TR Peak Shelton.: 2.50 m/s RAP Estimate: 5.00 mmHg TR Peak Gr.: 25.07 mmHg PA Pressure: 30.00 mmHg Left Ventricle The left ventricle is normal size. Mild concentric left ventricular hypertrophy. The left ventricular systolic function is normal. The left ventricular ejection fraction is within the normal range. LVEF is 60-65%. Right Ventricle The right ventricle is normal size. The right ventricular systolic function is normal. Atria The left atrium size is normal. The right atrium size is normal. Aortic Valve The aortic valve is normal in structure, trileaflet. No aortic regurgitation is present. There is no aortic valvular stenosis. Mitral Valve The mitral valve is normal in structure. Mild mitral regurgitation. No evidence of mitral valve stenosis. Tricuspid Valve The tricuspid valve is normal in structure. Trace to mild tricuspid regurgitation. Estimated PAP of 30 mmHg. Pulmonic Valve Pulmonic valve is not well visualized. There [place] [address] 2 D/M-MODE ECHOCARDIOGRAM Name: MICHAEL MONTANA Room #: 222-P [facility] IN .R.#: [id number] ������������� Admission: 02/11/19 ������������� Attend Phys: Gal Clinton MD Discharge: ��� ������������� ��� Date of : 52 Date of Service: 02/15/19 1536 �� Report #: [id number] �������� ��������������������������������������������[id number] regurgitation. Great Vessels The aortic root is normal in size. The ascending aorta is normal in size. IVC is normal in size and collapses >50% with inspiration. Pericardium There is no pericardial effusion. <Conclusion> The left ventricle is normal size. Mild concentric left ventricular hypertrophy. The left ventricular systolic function is normal. The right ventricle is normal size. The left atrium size is normal. The right atrium size is normal. The aortic valve is normal in structure, trileaflet. Mild mitral regurgitation. Trace to mild tricuspid regurgitation. Estimated PAP of 30 mmHg. ��������������������������������������������� <ELECTRONICALLY SIGNED> ���������������������������������������� By: Braeden Hillman MD ��������������������������������������������� 02/15/19 1536 1536 1536 Braeden Hillman MD /INF
--- NOTE | 2019-02-15 19:34 | NUR ---
ASSUMED CARE OF PATIENT AT 0715, PATIENT ALERT AND ORIENTED X 4. UP AD LOTUS. PATIENT DENIES PAIN THIS SHIFT. PATIENT HAS RIGHT UPPER ARM MIDLINE WITH NS AT 75CC/HR. PATIENT HAS CONGESTED COUGH, LUNGS WHEEZES/COARSE. PATIENT RECIEVES BREATHING TREATMENTS SCHEDULED. PATIENT WENT DOWN FOR ECHO THIS AFTERNOON. PATIENT ON ROOM AIR. WILL CONTINUE TO MONITOR, POSSIBLE DISCHARGE TOMORROW.
--- NOTE | 2019-02-16 03:11 | NUR ---
PATIENT ALERT AND ORIENTED X4. UP ADLIB IN ROOM. DENIES PAIN. IVF INFUSING W/O COMPLICATION. COOPERATIVE WITH CARE. PATIENT HAS A WET COUGH, HOWEVER, NON PRODUCTIVE. BS MONIORED PER ORDER. RESTING QUIETLY. WILL MONITOR.
[2019-02-16 08:42] VITALS: BP 137/66
--- NOTE | 2019-02-16 15:22 | NUR ---
ASSUMED CARE AT 0700, SHIFT ASSESSMENT DONE, MEDS GIVEN, VSS. PATIENT HAVAING BOUTS OF COUGH EPISODE WITH ACTIVITY. PRN MUCNIEX GIVEN WITH SOME RELIEF. DENIES PAIN, NAUSEA, VOMITING. DR SILVERMAN ORDERED MUCOLYTIC BREATHING TREATMENT. IV FLUIDS DISCONTINUED. WILL CONTINUE TO ASSESS AND ASSIST WITH ADLs NEEDED.
[2019-02-16 19:32] VITALS: BP 140/61
--- NOTE | 2019-02-17 03:49 | NUR ---
PATIENT ALERT AND ORIENTED X4. UP ADLIB IN ROOM. DENIES PAIN. RT TREATMENTS. MEDICATED WITH COUGH SYRUP, NON PRODUCTIVE COUGH. COOPERATIVE WITH CARE. RIGHT UPPER ARM MIDLINE PATENT FOR FLUSH AND MEDICATION. RESTING QUIETLY. WILL MONITOR.
[2019-02-17 06:28] LABS: HEMATOCRIT 37.9 % (37.0-47.0); HEMOGLOBIN 12.2 gm/dL (12.0-15.0); MCH 26.2 pg (26.0-34.0); MCHC 32.1 g/dL (28.0-37.0); MCV 81.4 fL (80.0-100.0); RBC 4.65 mil/uL (4.20-5.00); RDW 19.3 % (10.5-14.5); WBC 8.6 thou/uL (4.0-11.0)
[2019-02-17 06:42] LABS: CALCIUM 8.5 mg/dL (8.5-10.1); CREATININE 0.8 mg/dL (0.6-1.0); POTASSIUM 4.2 mmol/L (3.5-5.1)
[2019-02-17 08:25] VITALS: BP 117/81
--- NOTE | 2019-02-17 18:09 | NUR ---
PT IN STABLE CONDITION THIS SHIFT; PT NOTED W/PRODUCTIVE COUGH; PT NOTED W/WHEEZING W/EXERTION; PT UP AD LOTUS; PT IS AXO X 4; VSS; POC FOLLOWED ORDERED; WILL CONT TO MONITOR; NO S/SX OF ACUTE DISTRESS
[2019-02-17 18:56] VITALS: BP 142/80
--- NOTE | 2019-02-18 04:42 | NUR ---
PATIENT ALERT AND ORIENTED X4. UP ADLIB IN ROOM. RT TREATMENTS PER ORDER. DENIES PAIN. MEDICATED WITH LIQUID COUGH MEDICINE WITH GOOD RESULTS. CPAP AT NIGHT. BLOOD SUGAR MONITORED PER ORDER. MIDLINE PATENT. RESTING QUIELTY. WILL MONITOR.
[2019-02-18 08:05] LABS: ADENOVIRUS Negative (Negative); INFLUENZA A Negative (Negative); INFLUENZA B Negative (Negative); METAPNEUMOVIRUS Negative (Negative); PARAINFLUENZA 1 Negative (Negative); PARAINFLUENZA 2 Negative (Negative); PARAINFLUENZA 3 Negative (Negative); RHINOVIRUS Positive (Negative); RSV A Negative (Negative); RSV B Negative (Negative)
[2019-02-18 08:16] VITALS: BP 161/87
--- NOTE | 2019-02-18 11:33 | NUR ---
ASSUMED CARE OF PATIENT THIS MORNING. PATIENT IS A&OX4. SHE IS UP AD LOTUS. SHE IS ON LOW DOSE SLIDING SCALE AND DID NOT RECEIVE ANY INSULIN THIS MORNING, BLOOD SUGAR WAS 96. PATIENT TOLERATED HER MORNING MEDS. SHE HAS NOT COMPLAINED OF ANY PAIN THIS MORNING. SHE SLEEPS WITH A CPAP, ROOM AIR DURING THE DAY. PATIENT STILL COUGHING BUT NOT COUGHING UP ANYTHING. SHE HAS COARSE/WHEEZING LUNG SOUNDS. PATIENT IS CURRENTLY LYING IN BED WITH CALL LIGHT WITHIN REACH.
--- NOTE | 2019-02-18 11:46 | NUR ---
SW reviewed chart and spoke with nursing and attending physician. Pt is slowly progressing towards goals for discharge. Pt remains on IV steroids. Discharge home is anticipated for tomorrow. DWIGHT is following to assist as needed with discharge planning.
--- NOTE | 2019-02-18 13:58 | NUR ---
Assess for length of stay. Admitted with copd exacerbation. Attempted visit, pt sleeping soundly so did not awaken at this time. BG elevated with steroid induced diabetes. Has regular diet order-spoke with nurse who states appetite is good and sometimes eating foods possibly aggravating glucose levels. Wt hx reviewed and noted ~38 lb loss x 10mo=15% which is significant and some intentional based on prior RD evaluations. Likely discharge tomorrow. Recommend carb controlled diet, otherwise low nutrition risk
--- NOTE | 2019-02-18 15:42 | NUR ---
I AGREE WITH NURSING ASSESSMENT DONE BY STEW/ALICE.
[2019-02-18 20:39] VITALS: BP 141/64
--- NOTE | 2019-02-19 05:12 | NUR ---
Assumed pt care at 1900.Pt A/OX4,pleasant with no c/o pain or discomfort. VSS.Pt is up ad steven. Did complete shower before HS independently. Voiding without difficulty. Does have coarse/wheezy lung sounds with a congested cough,receiving respiratory Q4hrs when awake and prefers not to be woken up at night for tx. Midline in place on RUE and patent. Resting quietly eyes closed,CPAP in place.Encouraged to call as needed.Call light/personal items within reach. Will continue to monitor pt.
[2019-02-19 07:48] VITALS: BP 109/57
--- NOTE | 2019-02-19 10:58 | NUR ---
ASSUMED CARE OF PATIENT JAY BERRY. PATIENT IS A&OX4. SHE IS UP AD LOTUS. SHE DOES NOT COMPLAIN OF ANY PAIN OR DISCOMFORT. SHE TOLERATED HER MORNING MEDICATIONS. SHE WEARS A CPAP AT NIGHT. PATIENT RECEIVES BREATHING TREATMENTS NEEDED AND Q4H. PATIENT HOPES TO HAVE IV SOLUMEDROL CHANGED TO PO PREDNISONE. SHE IS CURRENTLY LYING IN BED WITH CALL LIGHT WITHIN REACH.
--- NOTE | 2019-02-19 12:36 | NUR ---
SW reviewed chart and spoke with nursing and attending physician. Pt is progressing towards goals for discharge home. Discharge home is anticipated for tomorrow. No SW interventions identified. SW is following to assist as needed with discharge planning.
[2019-02-19 20:14] VITALS: BP 138/74
[2019-02-19 21:03] VITALS: BP 12/72
--- NOTE | 2019-02-20 04:15 | NUR ---
Assumed pt care at 1900. Pt A/OX4,VSS,denies pain on assessment. Pt's up ad steven without any problems refuses to wear any non-skid socks though. Does have a congested non productive cough though verbalizes feeling much better and looking forward to dc today. Has a midline on RUE,patent with no blood return noted. Resting quietly eyes closed,CPAP on will continue to monitor pt.
[2019-02-20 08:35] VITALS: BP 113/67
[2019-02-20] MEDS ORDERED: AZITHROMYCIN 2250 MG PO ×2 (10:12→10:15)
[2019-02-20] MEDS ORDERED: PREDNISONE 20 M20 MG PO ×2 (10:12→10:15)
--- NOTE | 2019-02-20 11:15 | NUR ---
ASSUMED PATIENT AND CARES AT 0715, PATIENT PREFER NOT TO BE INVOLVED IN BEDSIDE REPORT, PATIENT WOKE IN ROOM WITH DOOR AND CURTAIN CLOSED, NURSE ENTERED ROOM AFTER RT COMPLETED TREATMENT, PATIENT SITTING UP IN BED, DENIES PAIN OR DISCOMFORT, PATIENT GOAL IS TO GO HOME THIS DAY, VS AND ASSESSMENT COMPLETED AT THIS TIME, NO CHANGES FROM BASELINE, MIDLINE TO RUE INTACT, REMAINS UP AD LOTUS AND INDEPENDENT WITH CARES, BS MONITORING CONTINUE, PERSONAL BELONGINGS AND CALL LIGHT IN REACH, WILL CONTINUE TO MONITOR
[2019-02-20 11:44] VITALS: BP 113/67
--- NOTE | 2019-02-20 11:51 | NUR ---
DISCHARGE NOTE: DWIGHT reviewed chart and spoke with nursing and attending physician. Pt is medically stable for discharge home today. No discharge needs identified at this time, but is available to assist should needs arise.
--- NOTE | 2019-02-20 11:59 | NUR ---
PATIENT DISCHARGED TO HOME WITH SELF CARE, IV TEAM REMOVED MIDLINE TO RUE WITHOUT DIFFICULTY AND REPLACED WITH BANDAGE TO BE REMOVED IN 24H, PATIENT UNDERSTANDS, NURSE AND PATIENT DISCUSSED DISCHARGE INSTRUCTIONS AND MEDICATIONS, PATIENT PACKED BELONGINGS AND ABLE TO CARRY PER SELF, TRANSPORT TO TAKE PATIENT PER WHEELCHAIR TO MEDICAL MALL ENTRANCE TO MEET SISTER
--- NOTE | 2019-02-20 12:17 | NUR ---
I AGREE WITH NURSING ASSESSMENT DONE BY JYOTI/ALICE, AND NURSING NOTE.
== END 2019-02-20 12:09 | disposition home or self-care (01) | DRG 189 ==
LOC: ER 14:51 → EROBS 17:41 → 4W 17:41 → SICU 02-12 12:26 → ENTRNSPT 02-20 11:58 → EDTRNSPTSTS 02-20 12:00 → SICU 02-20 12:09
PROVIDERS: Emergency Medicine; Internal Medicine Pulmonary Disease; Pediatrics; ADMIT Hospitalist
PROC: 5A09357 Assistance with Respiratory Ventilation, Less than 24 Consecutive Hours, Continuous Positive Airway Pressure (ICD-10-PCS; principal; 2019-02-11)
PROC: 05HY33Z Insertion of Infusion Device into Upper Vein, Percutaneous Approach (ICD-10-PCS; principal; 2019-02-11)
DX: J96.21 Acute and chronic respiratory failure with hypoxia (principal); J44.1 Chronic obstructive pulmonary disease with (acute) exacerbation; J45.901 Unspecified asthma with (acute) exacerbation; E88.01 Alpha-1-antitrypsin deficiency; Z96.643 Presence of artificial hip joint, bilateral; M10.9 Gout, unspecified; F32.9 Major depressive disorder, single episode, unspecified; Z96.611 Presence of right artificial shoulder joint; H40.9 Unspecified glaucoma; E66.01 Morbid (severe) obesity due to excess calories; F41.9 Anxiety disorder, unspecified; J30.9 Allergic rhinitis, unspecified; I10 Essential (primary) hypertension; K21.9 Gastro-esophageal reflux disease without esophagitis; E11.9 Type 2 diabetes mellitus without complications; Z86.711 Personal history of pulmonary embolism; Z98.42 Cataract extraction status, left eye; Z98.41 Cataract extraction status, right eye; Z88.6 Allergy status to analgesic agent; Z88.1 Allergy status to other antibiotic agents; Z88.0 Allergy status to penicillin; Z88.8 Allergy status to other drugs, medicaments and biological substances; Z87.891 Personal history of nicotine dependence; Z68.36 Body mass index [BMI] 36.0-36.9, adult; Z83.79 Family history of other diseases of the digestive system; Z79.52 Long term (current) use of systemic steroids; Z79.899 Other long term (current) drug therapy
CPT/HCPCS: 10045; 15002; 27000

== ENCOUNTER → 2019-03-27 | Outpatient (CLI) | payer OTHER ==
[~2019-03-27] MED LIST changes: +SPIRIVA INH
== END ==
LOC: MRI 13:24
DX: M47.26 Other spondylosis with radiculopathy, lumbar region (principal); M48.061 Spinal stenosis, lumbar region without neurogenic claudication

== ENCOUNTER → 2019-04-05 | Outpatient (CLI) | payer OTHER ==
[~2019-04-05] VITALS: Ht 162.6 cm; Wt 103.0 kg
[~2019-04-05] MED LIST changes: +QUETIAPINE FUM100 MG PO
--- NOTE | ~2019-04-05 | HPC ---
[facility] [place] [address] PAIN MANAGEMENT CONSULTATION Name: MICHAEL MONTANA Room #: REG [facility] Denae.#: [id number] Admission: 04/05/19 ������������������ Attend Phys: Kiel Rose MD Discharge: ������������������ Date of : 52 Report #: [id number] THIS REPORT FOR: //name// CC: Kiel Gómez DATE OF SERVICE: 04/05/2019 CHIEF COMPLAINT: "I am having pain in my low back and I have pain when I am walking upright." HISTORY OF PRESENT ILLNESS: The patient is a 68-year-old female who has been seen in the pain clinic in the past because of lumbar radicular pain. She also has had pain in the sacroiliac joints. She has undergone injections in the past. These have been beneficial. At this point, she is having more pain in the lower portion of her back with difficulty standing. Notes that if she stands for a few minutes, her pain becomes quite problematic. She then goes to sit down. After sitting for a period of about 5 minutes, she notes an improvement in her pain. Has difficulty standing in the kitchen to do activities because of the pain. Has difficulty standing in the bathroom and notes that she leans forward when she brushes her teeth. States that she walks with a forward bend because of the significance of the pain. She has also had some problems with her knees. She feels that her knees may have some arthritic changes on going because they are getting more and more painful with activities. She has returned to the pain clinic today for evaluation and the possibility of an injection. ALLERGIES: PENICILLIN, SULFA, MORPHINE. CURRENT MEDICATIONS: Xopenex, Seroquel 50 mg, Prevacid 15 mg, Mucinex 600 mg, 1200 mg is taken, Zoloft 100 mg. PAIN CLINIC ASSESSMENT AND PQRS: 1. The patient has osteoarthritic changes, which are involving her hips. She has had hip replacements. Has had some problems with her shoulders. Has noted increased problems with her knees. She is not being treated for rheumatoid arthritis. 2. Height 5 feet 4 inches, weight 222 pounds, BMI is 38.9. 3. Vital signs: Blood pressure 137/62, pulse 82, respiratory rate 20, room air saturation 98%. 4. Pain intensity 2-3/10. 5. Fall history: The patient has not fallen in the last 3 months. 6. Blood thinner. The patient is not on a blood thinning medication. 7. Hypertension. The patient has been treated for hypertension. 8. Opioids greater than 6 weeks. The patient is not on [place] [address] PAIN MANAGEMENT CONSULTATION Name: MICHAEL MONTANA Room #: REG CL M..#: [id number] Admission: 04/05/19 ������������������ Attend Phys: Kiel Rose MD Discharge: ������������������ Date of : 52 Report #: [id number] 9. Risk assessment tool, low for opioid use. 10. Functional assessment tool, . 11. Recreational drug use. The patient denies. 12. Alcohol: The patient denies other than occasional use of alcoholic beverages. PHYSICAL EXAMINATION: GENERAL: The patient is a well-developed, well-nourished, somewhat obese white female. Appears her stated age. She is alert and oriented x 3. Affect is appropriate. Speech is fluent. HEENT: Normocephalic, atraumatic. Extraocular eye muscles intact. Sclerae nonicteric. Mucous membranes are moist. The patient did become somewhat tearful because of her pain and discomfort during the interview. NECK: Without adenopathy or JVD. MUSCULOSKELETAL: The patient has some pain and discomfort in the upper extremities. Muscle strength is judged to be 5/5 for the major muscle groups in the upper extremity. Lower extremity muscle strength is judged to be 5- in the lower extremity. The patient uses both hands to go from a sitting position to a standing position. She gingerly places her weight on her knees. Complains of pain and discomfort in the knees while standing. The patient stands with a forward lean while being evaluated. Complains of pain and discomfort with flexion and extension. Notes and complains of increasing pain while standing for less than 5 minutes involving her back as well as in her knees. LABORATORY DATA: 1. MRI of the lumbar spine dated 03/27/2019; L2-L3 circumferential disk bulge with mild effacement of the ventral sac. There is mild bilateral neural foraminal narrowing without significant L2 nerve effacement. There is mild bilateral degenerative facet disease. 2. L3-L4 disk desiccation and mild disk space narrowing with circumferential disk bulge. There is advanced bilateral hypertrophic degenerative facet disease and ligamentum flavum thickening. The AP diameter of the central canal is narrowed to 7 mm. There is lateral recess narrowing. Ligamentum flavum thickening is present with fluid signals in both joint of the facets. 3. There is lateral recess narrowing and moderate bilateral neural foraminal, right greater than left. There is effacement of the undersurface of both L3 nerve roots. This has mildly progressed since 2012. 4. L4-L5 disk desiccation and disk space narrowing with circumferential disk bulging greatest posteriorly. This is effacement of the ventral thecal sac. Advance bilateral hypertrophic degenerative facet joint disease is present. Intraspinal spurring. Fluid signal is in both facets. The AP diameter of the central canal is narrowed to 8.5 mm. There is bilateral recess narrowing. Foraminal stenosis is present. 5. L5-S1 disk desiccation and disk space narrowing. There is effacement of the ventral thecal sac. There is a small amount of fluid in the left facet joint. [facility] [address] [place] [address] PAIN MANAGEMENT CONSULTATION Name: MICHAEL MONTANA Room #: REG [facility]#: [id number] Admission: 04/05/19 ������������������ Attend Phys: Kiel Rose MD Discharge: ������������������ Date of : 51 Report #: [id number] IMPRESSION: 1. History of sacroiliac joint dysfunction. 2. Spinal stenosis with back pain and radicular pain down into the left and right leg. MRI showing spinal stenosis. 3. Bilateral knee pain. 4. Chronic pain. RECOMMENDATIONS: We discussed treatment options with the patient. The patient's MRI was reviewed with her. It was pulled up on the screen. A model was used to point by point to note the pathology associated with her back. She states that she understands. The risks and benefits of an epidural steroid injection were discussed. They include but are not limited to infection, worsening of pain, no improvement in pain, nerve damage, paralysis, bleeding, headache. The patient elects to proceed. PROCEDURE NOTE: The patient was assisted in getting on the examination table. A pillow was placed in the abdomen to bolster and improve positioning. Fluoroscopy using anterior, posterior as well as lateral viewing were implemented. The patient's back had been sterilely prepped with a Betadine solution and allowed to dry. A 0.25% bupivacaine at the L3-L4 interspace was used to identify the epidural space. The midline approach was used. Aspiration was negative. This area had been infiltrated with 0.25% bupivacaine using a 25-gauge needle to numb it before the procedure. There were no complications. A total of 80 mg Depo-Medrol, 40 mg triamcinolone and 2 mL of 0.25% bupivacaine was infiltrated at the L3-L4 interspace. The patient tolerated the procedure well. She remained in the pain clinic for appropriate amount of time. Approximately 15 seconds fluoroscopy time was used. The patient's pain decreased to 2-3 at the time of discharge. She will follow up in the future as needed. We would like to thank you for letting us participate in her care. We hope she continues to improve. ��������������������������������������������� ���������������������������������������� By: ��������������������������������������������� 1805 2324 Kiel Rose MD /CHRISTINA
[2019-04-05 13:21] VITALS: BP 137/62
--- NOTE | 2019-04-05 13:31 | NUR ---
Pain Clinic Assessment: 1. History of Osteoarthritis: back hands knees History of Rheumatoid Arthritis: Not Applicable 2. Height: 5 ft. 4 in. 162.6 cm. Weight: 227.0 lb. oz. 102.967 kg. Patient's BMI: 38.9 3. Vital Signs: BP: 137/62 Pulse: 82 Resp: 20 Temp: 02 Sat: 98 ECG Mon: 4. Pain Intensity: 2-3 5. Fall Risk: Dizziness: N Needs help standing or walking: N Fallen in the last 3 months: N Fall risk comments: 6. Patient on Blood Thinner: None 7. History of Hypertension: Y 8. Opioid Therapy greater than 6 weeks: N Opiate Contract Signed: 9. Risk Assessment Tool Provided: low-1 10. Functional Assessment Tool: 11. Recreational Drug Use: Never Drug Type: Tobacco Use: Former Smoker Tobacco Type: Amount or Packs/day: How Many Years: Alcohol Use: Yes Frequency: Special Occasions Quant: 1
== END | disposition home or self-care (01) ==
LOC: PAIN 06:53
DX: M48.061 Spinal stenosis, lumbar region without neurogenic claudication (principal); M54.16 Radiculopathy, lumbar region; G89.29 Other chronic pain; M25.561 Pain in right knee; M25.562 Pain in left knee; J44.9 Chronic obstructive pulmonary disease, unspecified; F41.9 Anxiety disorder, unspecified; Z98.890 Other specified postprocedural states; Z88.0 Allergy status to penicillin; Z88.2 Allergy status to sulfonamides; Z88.8 Allergy status to other drugs, medicaments and biological substances; Z79.899 Other long term (current) drug therapy; Z87.891 Personal history of nicotine dependence

== ENCOUNTER → 2019-05-20 | Outpatient (CLI) | payer OTHER | LOC: RAD 12:12 | DX: M47.16 Other spondylosis with myelopathy, lumbar region (principal); M48.061 Spinal stenosis, lumbar region without neurogenic claudication ==

== ENCOUNTER → 2019-05-28 | Outpatient (CLI) | payer OTHER ==
[~2019-05-28] VITALS: Ht 162.6 cm; Wt 99.8 kg
[~2019-05-28] MED LIST changes: +FOLBIC RF TABL1 EACH PO
[2019-05-28 08:25] VITALS: BP 156/72
[2019-05-28 09:06] LABS: HEMATOCRIT 36.4 % (37.0-47.0); HEMOGLOBIN 12.1 gm/dL (12.0-15.0); MCH 27.9 pg (26.0-34.0); MCHC 33.2 g/dL (28.0-37.0); MCV 83.8 fL (80.0-100.0); RBC 4.34 mil/uL (4.20-5.00); RDW 15.3 % (10.5-14.5); WBC 6.4 thou/uL (4.0-11.0)
[2019-05-28 09:17] LABS: APTT 26.1 Seconds (24.5-32.8)
[2019-05-28 11:40] VITALS: BP 134/69
--- NOTE | 2019-05-28 12:03 | NUR ---
PT RESTING COMFORTABLY, NO COMPLAINTS AT THIS TIME. AAOX4, SPEAKING IN COMPLETE SENTENCES, SKIN PWD, NAD NOTED. DRESSING CDI UPDATED ON POC. VERBALIZES UNDERSTANDING. WILL CONTINUE TO MONITOR.
--- NOTE | 2019-05-28 12:20 | NUR ---
PT EXPERIENCED DIZZINESS WHEN SITTING STANDING WITH RN. PT ASSISTED TO BSC. GIVEN ADDITIONAL WATER AND CRACKERS AND WILL TRY AGAIN SHORTLY.
== END | disposition home or self-care (01) ==
LOC: SPEC 07:05
PROVIDERS: Radiology Diagnostic Radiology
DX: Z45.2 Encounter for adjustment and management of vascular access device (principal); E88.01 Alpha-1-antitrypsin deficiency; M51.26 Other intervertebral disc displacement, lumbar region; M48.061 Spinal stenosis, lumbar region without neurogenic claudication; M51.27 Other intervertebral disc displacement, lumbosacral region; E11.9 Type 2 diabetes mellitus without complications; J44.9 Chronic obstructive pulmonary disease, unspecified; F41.9 Anxiety disorder, unspecified; F32.9 Major depressive disorder, single episode, unspecified; G47.30 Sleep apnea, unspecified; M10.9 Gout, unspecified; K21.9 Gastro-esophageal reflux disease without esophagitis; H40.9 Unspecified glaucoma; Z98.890 Other specified postprocedural states; Z96.611 Presence of right artificial shoulder joint; Z98.49 Cataract extraction status, unspecified eye; Z98.51 Tubal ligation status; Z96.643 Presence of artificial hip joint, bilateral; Z87.01 Personal history of pneumonia (recurrent); Z87.891 Personal history of nicotine dependence; Z79.899 Other long term (current) drug therapy; Z79.01 Long term (current) use of anticoagulants; Z86.711 Personal history of pulmonary embolism; Z88.0 Allergy status to penicillin; Z88.2 Allergy status to sulfonamides

== ENCOUNTER → 2019-06-18 | Outpatient (CLI) | payer OTHER ==
[~2019-06-18] VITALS: Ht 162.6 cm; Wt 103.9 kg
[~2019-06-18] MED LIST changes: +GLASSIA IV; +TRELEGY ELLIPT1 EACH INH
[2019-06-18 13:08] VITALS: BP 168/68
--- NOTE | 2019-06-18 15:41 | NUR ---
CONT TO RECOVER POST PORT PLACEMENT. ROBEL CDI. RESTING. AT BEDSIDE. VSS.
--- NOTE | 2019-06-18 16:16 | NUR ---
PT HOME WITH PER WC. PLEASENT AFFECT.
== END | disposition home or self-care (01) ==
LOC: NUC 09:48 → CV 10:01
DX: Z45.2 Encounter for adjustment and management of vascular access device (principal); E88.01 Alpha-1-antitrypsin deficiency; J44.9 Chronic obstructive pulmonary disease, unspecified; M10.9 Gout, unspecified; K21.9 Gastro-esophageal reflux disease without esophagitis; E11.9 Type 2 diabetes mellitus without complications; F32.9 Major depressive disorder, single episode, unspecified; H40.9 Unspecified glaucoma; E66.09 Other obesity due to excess calories; N95.9 Unspecified menopausal and perimenopausal disorder; F41.9 Anxiety disorder, unspecified; G47.30 Sleep apnea, unspecified; Z98.51 Tubal ligation status; Z96.643 Presence of artificial hip joint, bilateral; Z98.890 Other specified postprocedural states; Z96.611 Presence of right artificial shoulder joint; Z87.01 Personal history of pneumonia (recurrent); Z86.711 Personal history of pulmonary embolism; Z79.01 Long term (current) use of anticoagulants; Z87.891 Personal history of nicotine dependence; Z88.0 Allergy status to penicillin; Z88.2 Allergy status to sulfonamides; Z88.8 Allergy status to other drugs, medicaments and biological substances; Z79.899 Other long term (current) drug therapy

== ENCOUNTER 2019-07-07 12:08 | Emergency (ER) | payer OTHER ==
[~2019-07-07] VITALS: Ht 162.6 cm; Wt 101.6 kg
[2019-07-07 12:24] LABS: BE(vivo) -2.8 mmol/L (-2 to +3); HCO3 18.4 mmol/L (22.0-26.0); PO2 91.3 mmHg (80.0-100.0); sO2 97.7 % (92.0-98.0)
[2019-07-07 12:25] LABS: PCO2 24.2 mmHg (35.0-45.0)
[2019-07-07] MEDS ORDERED: LEVALBUTER1.25 MG/0. INH (12:25)
[2019-07-07] MEDS ORDERED: DUPIXENT300 MG/2 M SUBQ (12:27)
[2019-07-07] MEDS ORDERED: GLASSIA IV (12:28)
[2019-07-07 12:55] LABS: ABSOLUTE NEUTROPHILS 4.1 thou/uL (1.4-8.2); BASOPHILS 0.7 % (0.0-2.0); EOSINOPHILS 2.8 % (0.0-3.0); HEMATOCRIT 39.1 % (37.0-47.0); HEMOGLOBIN 12.9 gm/dL (12.0-15.0); LYMPHOCYTES 34.4 % (24.0-44.0); MCH 27.4 pg (26.0-34.0); MCHC 32.9 g/dL (28.0-37.0); MCV 83.3 fL (80.0-100.0); MONOCYTES 6.6 % (1.0-8.0); PLATELET COUNT 160 thou/uL (150-400); POLYS 55.5 % (36.0-66.0); RDW 15.4 % (10.5-14.5); WBC 7.4 thou/uL (4.0-11.0)
[2019-07-07 13:03] LABS: ANION GAP 13 mmol/L (7-16); BUN 11 mg/dL (7-18); CALCIUM 9.1 mg/dL (8.5-10.1); CHLORIDE 103 mmol/L (98-107); CO2 23 mmol/L (21-32); CREATININE 1.1 mg/dL (0.6-1.0); GLUCOSE 168 mg/dL (74-106); POTASSIUM 3.5 mmol/L (3.5-5.1); SODIUM 139 mmol/L (136-145)
[2019-07-07 13:14] LABS: ALBUMIN 3.5 g/dL (3.4-5.0); SGOT 30 U/L (15-37); SGPT 27 U/L (30-65); TOTAL BILIRUBIN 0.4 mg/dL (<0.1-1.0); TOTAL PROTEIN 6.9 g/dL (6.4-8.2); TROPONIN-I <0.06 ng/mL (<0.06)
[2019-07-07] MEDS ORDERED: PREDNISONE 10 M10 M1 PO (13:27)
[2019-07-07 13:39] VITALS: BP 194/88
--- NOTE | 2019-07-08 07:46 | EKG ---
[place] [address] [facility] [place] [address] ELECTROCARDIOGRAM REPORT Name: MICHAEL MONTANA Room #: [facility]#: [id number] Admission: 07/07/19 Attend Phys: Discharge: 07/07/19 Date of : 51 Report #: [id number] THIS REPORT FOR: //name// [facility] ED Test Date: 2019-07-07 Test Time: 12:14:08 Pat Name: MICHAEL MONTANA Department: Room: Gender: F Charge Loader: JULIANNE : 1950 Requested By: Marcy Collado Order Number: [id number] MD: Ross Tejeda Measurements Intervals [place] Rate: 107 P: 74 [place]: 159 QRS: -72 QRSD: 102 T: 76 QT: 341 QTc: 455 Interpretive Statements Sinus tachycardia Left anterior fascicular block Abnormal R-wave progression, late transition Compared to ECG 02/11/2019 15:02:46 No significant changes Electronically Signed On 07-08-2019 7:46:40 CDT by Ross Tejeda [email or web address] <ELECTRONICALLY SIGNED> By: Ross Tejeda MD, [facility] 07/08/19 0746 1214 1214 Ross Tejeda MD, [facility] /EPI
== END 2019-07-07 13:40 | disposition home or self-care (01) ==
LOC: ER 12:08
PROVIDERS: Physician Assistant
DX: J96.00 Acute respiratory failure, unspecified whether with hypoxia or hypercapnia (principal); J44.1 Chronic obstructive pulmonary disease with (acute) exacerbation; E88.01 Alpha-1-antitrypsin deficiency; K21.9 Gastro-esophageal reflux disease without esophagitis; M10.9 Gout, unspecified; F32.9 Major depressive disorder, single episode, unspecified; E11.9 Type 2 diabetes mellitus without complications; G47.30 Sleep apnea, unspecified; Z96.611 Presence of right artificial shoulder joint; Z86.711 Personal history of pulmonary embolism; Z90.89 Acquired absence of other organs; Z96.643 Presence of artificial hip joint, bilateral; Z88.0 Allergy status to penicillin; Z88.5 Allergy status to narcotic agent; Z88.1 Allergy status to other antibiotic agents; Z87.891 Personal history of nicotine dependence

== ENCOUNTER 2019-07-08 12:43 | Inpatient (IN) | payer OTHER ==
[~2019-07-08] VITALS: Ht 162.6 cm; Wt 101.6 kg
[2019-07-08 12:43] VITALS: BP 131/111
[~2019-07-08 12:43] MED LIST changes: +DUPIXENT300 MG/2 M SUBQ
[2019-07-08 13:29] LABS: ABSOLUTE NEUTROPHILS 11.5 thou/uL (1.4-8.2); BASOPHILS 0.3 % (0.0-2.0); EOSINOPHILS 0.1 % (0.0-3.0); HEMATOCRIT 41.3 % (37.0-47.0); HEMOGLOBIN 13.3 gm/dL (12.0-15.0); MCH 27.2 pg (26.0-34.0); MCHC 32.3 g/dL (28.0-37.0); MCV 84.2 fL (80.0-100.0); MONOCYTES 6.8 % (1.0-8.0); PLATELET COUNT 223 thou/uL (150-400); POLYS 74.8 % (36.0-66.0); RDW 15.7 % (10.5-14.5); WBC 15.4 thou/uL (4.0-11.0)
[2019-07-08 13:32] LABS: ANION GAP 11 mmol/L (7-16); BUN 15 mg/dL (7-18); CALCIUM 9.7 mg/dL (8.5-10.1); CHLORIDE 103 mmol/L (98-107); CO2 22 mmol/L (21-32); CREATININE 1.2 mg/dL (0.6-1.0); GLUCOSE 195 mg/dL (74-106); POTASSIUM 4.3 mmol/L (3.5-5.1); SODIUM 136 mmol/L (136-145)
[2019-07-08 13:41] LABS: SGOT 21 U/L (15-37); SGPT 25 U/L (30-65); TOTAL BILIRUBIN 0.3 mg/dL (<0.1-1.0); TOTAL PROTEIN 7.8 g/dL (6.4-8.2); TROPONIN-I <0.06 ng/mL (<0.06)
[2019-07-08 18:29] VITALS: BP 140/52
--- NOTE | 2019-07-08 18:45 | NUR ---
attempted to give report to ICU, no one available to take report
--- NOTE | 2019-07-08 19:12 | NUR ---
no one availabe to take report
[2019-07-08 19:25] VITALS: BP 161/71
--- NOTE | 2019-07-08 20:33 | NUR ---
PATIENTS CARES ASSUMED AT TRANSFER FROM ER. PATIENT WAS ADMITTED, ASSESSED AND NO MED ORDERS TO PASS AT THIS TIME. PATIENT WAS GIVEN A SNACK PACK. CONSTENT MONITORING WAS DONE DUE TO ICU PLACEMENT. BED ALAM IS ON. PERSONAL ITEMS ARE WITH IN REACH OF PATIENTS BEDSIDE.
[2019-07-09 05:57] LABS: HEMATOCRIT 39.4 % (37.0-47.0); HEMOGLOBIN 12.7 gm/dL (12.0-15.0); MCH 27.1 pg (26.0-34.0); MCHC 32.2 g/dL (28.0-37.0); RBC 4.68 mil/uL (4.20-5.00); RDW 15.9 % (10.5-14.5); WBC 11.5 thou/uL (4.0-11.0)
[2019-07-09 06:17] LABS: CALCIUM 9.2 mg/dL (8.5-10.1); MAGNESIUM 2.4 mg/dL (1.8-2.4); PHOSPHORUS 3.3 mg/dL (2.5-4.9); POTASSIUM 4.3 mmol/L (3.5-5.1)
[2019-07-09 07:28] VITALS: BP 142/75
--- NOTE | 2019-07-09 07:49 | EKG ---
[address] [place] [address] ELECTROCARDIOGRAM REPORT Name: MICHAEL MONTANA Room #: 248-P ADM IN M.R.#: [id number] ������������������ Admission: 07/08/19 ������������������ Attend Phys: Long Currie MD Discharge: ������������������ Date of : 51 Report #: [id number] ����������������������������������������������������������������� [id number] THIS REPORT FOR: //name// [facility] ED Test Date: 2019-07-08 Test Time: 13:17:57 Pat Name: MICHAEL MONTANA Department: Room: 248 Gender: F [employer] W[employer] Driver: : 1950 Requested By: Marcy Collado Order Number: [id number] MD: Ross Tejeda Measurements Intervals [place] Rate: 97 P: -24 [place]: 158 QRS: -61 QRSD: 91 T: 79 QT: 362 QTc: 460 Interpretive Statements Sinus rhythm Left anterior fascicular block Abnormal R-wave progression, late transition Compared to ECG 07/07/2019 12:14:08 No significant change was found Electronically Signed On 07-09-2019 7:49:26 CDT by Ross Tejeda [email or web address] ��������������������������������������������� <ELECTRONICALLY SIGNED> ���������������������������������������� By: Ross Tejeda MD, [facility] ��������������������������������������������� 07/09/19 0749 1317 1317 Ross Tejeda MD, [facility] /EPI
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
[2019-07-09 19:42] VITALS: BP 154/74
[2019-07-09 20:00] VITALS: BP 154/74
--- NOTE | 2019-07-09 22:38 | NUR ---
PT TO TRANSFER TO 463. REPORT GIVEN TO NIGHT NURSE. ALLOWED FOR QUESTIONS. PT AWARE OF TRANSFER C/O TIME OF NIGHT FOR IT BUT UNDERSTANDING. WILL TAKE PT BELONGINGS FIRST THEN TRANSFER PT.
[2019-07-09 23:00] VITALS: BP 171/90
--- NOTE | 2019-07-09 23:18 | NUR ---
2255 PT OFF UNIT IN STABLE CONDITION VIA W/C WITH BELONGINGS.
[2019-07-10 04:29] VITALS: BP 136/65
--- NOTE | 2019-07-10 04:52 | NUR ---
TRANSFER PT FROM ICU IN STABLE CONDITION. PT A&OX4. ADLIB IN THE ROOM. PT HAD NO CONSENTS OVERNIGHT. WEARS HER OWN CPAP AT NIGHT. V/S STABLE. CALL DOTY WITHIN REACH. WILL CONT TO MONITOR
[2019-07-10 07:53] VITALS: BP 120/66
[2019-07-10 14:17] VITALS: BP 150/82
--- NOTE | 2019-07-10 17:28 | NUR ---
Received awake on bed. Due medications given as prescribed, able to swallow meds w/o difficulty. A+Ox4. On room air, on regular breathing treatments and CPAP at night. With R Chest port access- intact and flushing well. Pt up ad steven. Vital signs stable. Pt with [facility] infusion(home meds)- pharmacy aware and will send medications, transfused this afternoon, no adverse reactions noted.
[2019-07-10 20:20] VITALS: BP 158/80
--- NOTE | 2019-07-11 04:05 | NUR ---
ASSUMED CARE AROUND 1900. AXOX4. R CHEST PORT INTACT, DRAWS BLOOD. PERSISTENT COUGH. CALLED [facility] [employer] FOR AND OBTAINED AN ORDER FOR LIQUID COUGH SYRUP. NO S/S ACUTE DISTRESS NOTED OR REPORTED AT THIS TIME. WILL CONT TO MONITOR FOR ANY CHANGES IN CONDITION.
[2019-07-11 06:30] LABS: HEMATOCRIT 40.7 % (37.0-47.0); HEMOGLOBIN 13.5 gm/dL (12.0-15.0); MCH 27.6 pg (26.0-34.0); MCHC 33.2 g/dL (28.0-37.0); MCV 83.2 fL (80.0-100.0); RBC 4.9 mil/uL (4.20-5.00); RDW 15.6 % (10.5-14.5); WBC 9.8 thou/uL (4.0-11.0)
[2019-07-11 06:54] LABS: CALCIUM 9.2 mg/dL (8.5-10.1); POTASSIUM 4.3 mmol/L (3.5-5.1)
[2019-07-11 08:00] VITALS: BP 125/61
[2019-07-11 19:20] VITALS: BP 166/97
--- NOTE | 2019-07-11 20:02 | NUR ---
Assumed pt care this am, pt is independent and up at steven, VS have been stable bp elevated later part due to medications. Chest port intact and draining of blood. Pt complained of cough and disconfort d/t that, medication given. Informed Dr. Rios that ENT not available for this whole week and no one from his practive can, informed Dr. Clinton. POC followed, no signs of distress have been noted.
[2019-07-12] VITALS (7 sets, daily range): BP systolic 136–183; BP diastolic 57–89
--- NOTE | 2019-07-12 04:39 | NUR ---
ASSUMED CARE AROUND 1900. AXOX4. IN THE BEGINNING OF THE SHIFT, HTN WAS NOTED, REPORTED TO JEWELRY BENCH MOLDER DIRECTOR OF SAFETY AND SECURITY FOR HIMS. PER JEWELRY BENCH MOLDER MONITOR FOR MIDNIGHT AND ONLY CALL FOR SBP>160. AT MIDNIGHT SBP<160. NO S/S ACUTE DISTRESS NOTED OR REPORTED AT THIS TIME. WILL CONT TO MONITOR FOR ANY CHANGES IN CONDITION.
--- NOTE | 2019-07-12 15:55 | NUR ---
CARE TEAM INDICATED THAT PT WILL LIKELY BE MEDICALLY STABLE TO DC OVER THE WEEKEND. PT WILL LIKELY DC HOME WITH NO NEEDS. CM ABLE TO FOLLOW SHOULD ANY NEEDS ARISE.
--- NOTE | 2019-07-12 20:23 | NUR ---
Assumed pt care this am, pt is up at steven. No signs and complaints of distress have been noted. VS stable, POC followed. AWaiting ENT consult.
--- NOTE | 2019-07-13 04:40 | NUR ---
PATIENT ALERT AND ORIENTED X4. UP ADLIB IN ROOM. DENIES PAIN. COOPERATIVE WITH CARE. CPAP AT NIGHT. NO SOA NOTED. RT TX PER ORDER. RESTING QUIETLY. WILL MONITOR.
[2019-07-13 07:35] VITALS: BP 153/82
[2019-07-13] MEDS ORDERED: DELSYM COU30 MG/5 M1 PO (14:50)
[2019-07-13] MEDS ORDERED: PREDNISONE 10 M10 M1 PO (14:52)
[2019-07-13 15:17] VITALS: BP 153/82
--- NOTE | 2019-07-13 17:28 | NUR ---
PATIENT ALERT AND ORIENTED AND COOPERATIVE WITH POC. DR. LAINEZ AND STOM AT BEDSIDE AND AGREE TO PATIENT IS STABLE TO DC. PATIENT DC TO HOME IN STABLE CONDITION WITH DISCHARGE INSTRUCTIONS AND PRESCRIPTIONS WITH ALL PERSONAL BELONGINGS. PATIENT WILL FOLLOW-UP WITH ENT.
[2019-07-13 17:35] VITALS: BP 153/82
--- NOTE | 2019-07-13 17:43 | NUR ---
DISACCESSED IMPLANTED PORT PRIOR TO DISCHARGE.
== END 2019-07-13 17:30 | disposition home or self-care (01) | DRG 189 ==
LOC: ER 12:43 → EROBS 13:32 → 4W 13:32 → ICU 13:32 → 4W 07-09 23:08
PROVIDERS: Hospitalist; Physician Assistant; ADMIT Internal Medicine
DX: J96.21 Acute and chronic respiratory failure with hypoxia (principal); J44.1 Chronic obstructive pulmonary disease with (acute) exacerbation; E88.01 Alpha-1-antitrypsin deficiency; Z96.643 Presence of artificial hip joint, bilateral; M10.9 Gout, unspecified; K21.9 Gastro-esophageal reflux disease without esophagitis; E11.9 Type 2 diabetes mellitus without complications; F32.9 Major depressive disorder, single episode, unspecified; Z96.611 Presence of right artificial shoulder joint; J45.909 Unspecified asthma, uncomplicated; G47.33 Obstructive sleep apnea (adult) (pediatric); F41.9 Anxiety disorder, unspecified; Z79.52 Long term (current) use of systemic steroids; Z86.711 Personal history of pulmonary embolism; Z88.1 Allergy status to other antibiotic agents; Z88.2 Allergy status to sulfonamides; Z88.8 Allergy status to other drugs, medicaments and biological substances; Z87.891 Personal history of nicotine dependence; Z83.79 Family history of other diseases of the digestive system
CPT/HCPCS: 10040; 10045; 10203

== ENCOUNTER 2020-02-23 22:04 | Emergency (ER) | payer OTHER ==
[~2020-02-23] VITALS: Ht 167.6 cm; Wt 108.8 kg
[~2020-02-23 22:04] MED LIST changes: +DELSYM COU30 MG/5 M1 PO
[2020-02-23 22:10] VITALS: BP 232/178
== END 2020-02-24 00:07 | disposition home or self-care (01) ==
LOC: ER 22:04
DX: F10.129 Alcohol abuse with intoxication, unspecified (principal); M54.9 Dorsalgia, unspecified; M10.9 Gout, unspecified; K21.9 Gastro-esophageal reflux disease without esophagitis; J44.9 Chronic obstructive pulmonary disease, unspecified; J45.909 Unspecified asthma, uncomplicated; F17.210 Nicotine dependence, cigarettes, uncomplicated; Z79.899 Other long term (current) drug therapy; Z88.2 Allergy status to sulfonamides; Z88.0 Allergy status to penicillin; Z88.8 Allergy status to other drugs, medicaments and biological substances; Y90.9 Presence of alcohol in blood, level not specified

== ENCOUNTER → 2020-04-01 | Outpatient (CLI) | payer OTHER ==
[~2020-04-01] VITALS: Ht 162.6 cm; Wt 110.7 kg
[~2020-04-01] MED LIST changes: +MELOXICAM15 MG PO; +NEURONTIN 300M300 M2 PO; +PERCOCET 10-321 EACH PO; +SEROQUEL XR 20200 MG PO
[2020-04-01 12:51] VITALS: BP 137/54
--- NOTE | 2020-04-01 12:54 | NUR ---
Pain Clinic Assessment: 1. History of Osteoarthritis: back hands knees History of Rheumatoid Arthritis: Not Applicable 2. Height: 5 ft. 4 in. 162.6 cm. Weight: 244.0 lb. oz. 110.678 kg. Patient's BMI: 41.9 3. Vital Signs: BP: 137/54 Pulse: 53 Resp: 18 Temp: 02 Sat: 95 ECG Mon: 4. Pain Intensity: 2-3 5. Fall Risk: Dizziness: N Needs help standing or walking: N Fallen in the last 3 months: N Fall risk comments: 6. Patient on Blood Thinner: None 7. History of Hypertension: Y 8. Opioid Therapy greater than 6 weeks: N Opiate Contract Signed: 9. Risk Assessment Tool Provided: low-1 10. Functional Assessment Tool: 11. Recreational Drug Use: Never Drug Type: Tobacco Use: Former Smoker Tobacco Type: Amount or Packs/day: How Many Years: Alcohol Use: Yes Frequency: Quant:
--- NOTE | 2020-04-15 08:10 | HPC ---
[facility] [place] [address] [address] PAIN MANAGEMENT CONSULTATION Name: MICHAEL MONTANA Room #: REG [facility].#: [id number] Admission: 04/01/20 Attend Phys: Kiel Rose MD Discharge: Date of : 52 Report #: [id number] THIS REPORT FOR: cc: Hank Gómez,Kiel Taylor MD ~ CC: Kiel Gómez DATE OF SERVICE: 04/01/2020 PRIMARY CARE PHYSICIAN: Hank Gómez MD CHIEF COMPLAINT: Bilateral leg numbness and tingling. HISTORY: The patient is a 69-year-old female who has been referred to the pain clinic for evaluation. She complains of pain and discomfort down into her right leg. Notes that it can go to the front of her leg and down to the lower portion. She describes a numbness and tingling sensation. There is sharp, stabbing discomfort. She rates it as a 2-3. Pain is worse, which can be exacerbated when she lies down. It sometimes wakes her up in the morning. Sometimes sitting or elevating her feet can be helpful. She has had back surgery with instrumentation in the lower portion of her back with pedicle screws and rods. ALLERGIES: PENICILLIN, SULFA, DOXYCYCLINE, KETAMINE, CEFOTAN, MORPHINE, nausea, becomes vicious and hallucinates. MEDICATIONS: Seroquel XR 200 mg, gabapentin 300 mg at bedtime, meloxicam 15 mg, dextromethorphan, cough p.r.n., Dupixent every 14 days, alpha-1 proteinase inhibitor ([facility]ia) intravenous weekly on Wednesdays, Folbic RF tablet, Xopenex inhaler q. 4-6 hours as needed, Mucinex 600 mg, Zoloft 100 mg. PAST MEDICAL HISTORY: Alpha-1 antitrypsin deficiency, gout, GERD, reactive airway disease, COPD, history of C. diff x 6, last greater than 5 years ago, steroid-induced diabetes,, depression, sleep apnea, uses CPAP machine, asthma, glaucoma, pulmonary problems. PAST SURGICAL HISTORY: Rotator cuff repair, right, bilateral hip replacement for avascular necrosis, tonsillectomy, tubal ligation, right shoulder replacement. REVIEW OF SYSTEMS: Reviewed 14 points and as per HPI. PAIN CLINIC ASSESSMENT AND PQRS: 1. History of osteoarthritis. Has back, hand and [place] [address] PAIN MANAGEMENT CONSULTATION Name: MICHAEL MONTANA Room #: REG [facility].#: [id number] Admission: 04/01/20 Attend Phys: Kiel Rose MD Discharge: Date of : 52 Report #: [id number] is not being treated for rheumatoid arthritis. 2. Height 5 feet 4 inches, weight 244 pounds, BMI is 41.9. 3. Vital signs: Blood pressure 137/54, pulse 53, respiratory rate 18, room air saturation 95%. 4. Pain intensity 2-3. 5. Fall risk. The patient has not fallen in the last 3 months. 6. Blood thinner. The patient is not on a blood thinning medication. 7. Hypertension. The patient is being treated for hypertension. 8. Opioids greater than 6 weeks. 9. Risk assessment tool, moderate for opioid use. 10. Functional assessment tool . 11. Recreational drug use. The patient denies. 12. Tobacco: The patient is a former smoker. 13. Alcohol: The patient does use alcoholic beverages. PHYSICAL EXAMINATION: GENERAL: The patient is a well-developed, well-nourished white female. Appears her stated age. She is alert and oriented x 3. Her affect is appropriate. Speech is fluent. HEENT: Normocephalic, atraumatic. Extraocular eye muscles intact. Sclerae nonicteric. Mucous membranes are moist. NECK: Without adenopathy or JVD. HEART: Regular rate. ABDOMEN: Nontender. BACK: The patient has well-healed scar in the lower portion of her back. MUSCULOSKELETAL: Complains of pain and discomfort in the L5-S1 dermatomal distribution with pain radiating down in the area of the sciatic nerve. Pain is most problematic in the right leg. IMPRESSION: 1. Lumbar radiculopathy, L5-S1 dermatomal distribution. 2. Alpha-1 antitrypsin deficiency. 3. Gout. 4. Gastroesophageal reflux disease. 5. Reactive airway disease. 6. Chronic obstructive pulmonary disease. 7. History of Clostridium difficile x 6, last greater than 5 years ago. 8. Steroid-induced diabetes. 9. ____. 10. Depression. 11. Sleep apnea, uses CPAP machine. 12. Asthma. 13. Glaucoma. 14. Pulmonary problems. RECOMMENDATIONS: We discussed treatment options with the patient. [facility] [address] [place] [address] PAIN MANAGEMENT CONSULTATION Name: MICHAEL MONTANA Room #: REG [facility] [place]#: [id number] Admission: 04/01/20 Attend Phys: Kiel Rose MD Discharge: Date of : 52 Report #: [id number] benefits of an epidural steroid injection were discussed. Possible complications of the procedure, which could include but are not limited to infection, worsening pain, no improvement in pain, nerve damage were discussed. We explained to the patient that COVID-19 is problematic. Should the patient become infected after giving steroids, she might find it more difficult to recover. Steroids can decrease one's immunity. The patient feels that her pain is quite problematic at this point and elects to proceed. PROCEDURE NOTE: The patient was taken to the procedure area. She was then assisted in getting on examination table. Her back was sterilely prepped with a Betadine solution. A 0.25% bupivacaine was infiltrated at the L5-S1 area. A total of 80 mg Depo-Medrol, 40 mg triamcinolone and 2 mL of 0.25% bupivacaine was infiltrated. Fluoroscopy using anterior and posterior and anterior and lateral viewing were implemented to help guide the injection. The patient tolerated the procedure well. There were no complications. She remained in the Pain Clinic for an appropriate amount of time. Her pain decreased to 0 at the time of discharge. Total of 12 seconds fluoroscopy time was used. We would like to thank you for letting us participate in her care. We hope she continues to improve. <ELECTRONICALLY SIGNED> By: Kiel Rose MD 04/15/20 0810 2314 0439 Kiel Rose MD /CHRISTINA
== END | disposition home or self-care (01) ==
LOC: PAIN 07:03
PROVIDERS: ATTEND Anesthesiology Pain Medicine
DX: M54.16 Radiculopathy, lumbar region (principal); G89.29 Other chronic pain; J44.9 Chronic obstructive pulmonary disease, unspecified; Z98.890 Other specified postprocedural states; Z79.899 Other long term (current) drug therapy; Z80.0 Family history of malignant neoplasm of digestive organs; Z88.2 Allergy status to sulfonamides; Z88.8 Allergy status to other drugs, medicaments and biological substances

== ENCOUNTER → 2020-04-17 | Outpatient (CLI) | payer OTHER ==
[~2020-04-17] VITALS: Ht 162.6 cm; Wt 110.1 kg
[2020-04-17 14:12] VITALS: BP 166/69
--- NOTE | 2020-04-17 14:23 | NUR ---
Pain Clinic Assessment: 1. History of Osteoarthritis: back hands knees History of Rheumatoid Arthritis: Not Applicable 2. Height: 5 ft. 4 in. 162.6 cm. Weight: 242.8 lb. oz. 110.134 kg. Patient's BMI: 41.7 3. Vital Signs: BP: 166/69 Pulse: 70 Resp: 18 Temp: 02 Sat: 100 ECG Mon: 4. Pain Intensity: 8 ON FEET 5. Fall Risk: Dizziness: N Needs help standing or walking: N Fallen in the last 3 months: N Fall risk comments: 6. Patient on Blood Thinner: None 7. History of Hypertension: Y 8. Opioid Therapy greater than 6 weeks: N Opiate Contract Signed: 9. Risk Assessment Tool Provided: low-1 10. Functional Assessment Tool: 11. Recreational Drug Use: Never Drug Type: Tobacco Use: Former Smoker Tobacco Type: Amount or Packs/day: How Many Years: Alcohol Use: Yes Frequency: Quant:
--- NOTE | 2020-04-24 09:39 | HPC ---
[facility] [place] [address] PAIN MANAGEMENT CONSULTATION Name: MICHAEL MONTANA Room #: REG [facility]..#: [id number] Admission: 04/17/20 Attend Phys: Kiel Rose MD Discharge: Date of : 52 Report #: [id number] THIS REPORT FOR: cc: Hank Gómez,Kiel Taylor MD ~ CC: Kiel Gómez DATE OF SERVICE: 04/17/2020 CHIEF COMPLAINT: Back pain with pain down to the right leg and involving the front and lower leg to the ankle. HISTORY: The patient is a 69-year-old female who has been seen in the pain clinic because of lumbar radiculopathy. She has had back pain for some time. She has undergone surgery. She has rods and screws in her low back area. She has noticed that her pain has worsened. She rates her pain as an 8/10 when she is on her feet. She has sharp, tingling, stabbing discomfort. Pain improves when she lies down. Pain is exacerbated when she wakes up, particularly in the morning. Sitting can be helpful. She sometimes elevates her feet. She would like to consider an injection today. ALLERGIES: PENICILLIN, SULFA, DOXYCYCLINE, KETAMINE, CEFOTAN, MORPHINE -- CAUSE NAUSEA AND VICIOUS HALLUCINATIONS. CURRENT MEDICATIONS: Seroquel XR 200 mg, gabapentin 300 mg at bedtime, meloxicam 15 mg, Dupixent every 14 days for alpha-1 proteinase inhibitor (Glassia) intravenous weekly on Wednesdays, Folbic RF tablet, Xopenex every 6 hours p.r.n., Mucinex 600 mg, and Zoloft 100 mg. PAIN CLINIC ASSESSMENT AND PQRS: 1. History of osteoarthritis in her back with complaints of pain in her knees and hands. The patient is not being treated for rheumatoid arthritis. 2. Height 5 feet 4 inches, weight 242 pounds, BMI is 41. 3. Vital signs: Blood pressure 166/69, pulse 70, respiratory rate 18, room air saturation is 100%. 4. Pain intensity 8/10 when standing on her feet. 5. Fall risk. The patient has not fallen. 6. Blood thinner. The patient is not on a blood thinning medication. 7. Hypertension. The patient is being treated for hypertension. 8. Opioids greater than 6 weeks. The patient receives medication from one source. 9. Risk assessment tool, low for opioid use. 10. Functional assessment tool . 11. Recreational drug use. The patient denies. [address] [address] PAIN MANAGEMENT CONSULTATION Name: MICHAEL MONTANA Room #: REG [facility].#: [id number] Admission: 04/17/20 Attend Phys: Kiel Rose MD Discharge: Date of : 52 Report #: [id number] 12. Tobacco: The patient is a former smoker. 13. Alcohol: The patient occasionally drinks alcoholic beverages. PHYSICAL EXAMINATION: GENERAL: The patient is a well-developed, well-nourished white female. Appears her stated age. She is alert and oriented x 3. Her affect is appropriate. Speech is fluent. HEENT: Normocephalic, atraumatic. Extraocular eye muscles intact. Sclerae nonicteric. Mucous membranes moist. NECK: Without adenopathy or JVD. HEART: Regular rate. ABDOMEN: Nontender. BACK: The patient has well-healed scar in the lower portion of her back. MUSCULOSKELETAL: The patient without significant scoliosis, kyphosis or lordosis. The patient complains of pain in the L5-S1 dermatomal distribution down into sciatic area. Pain is most problematic on her right leg. IMPRESSION: 1. Lumbar radiculopathy with L5-S1 dermatomal distribution. 2. Alpha-1 antitrypsin deficiency. 3. Gout. 4. Gastroesophageal reflux. 5. Reactive airway disease. 6. Chronic obstructive pulmonary disease. 7. History of Clostridium difficile x 6, last 5 years ago. 8. Opioid-induced diabetes. 9. Depression. 10. Sleep apnea. 11. CPAP machine use. 12. Asthma. 13. Glaucoma. 14. Pulmonary problems. RECOMMENDATIONS: We discussed treatment options with the patient. Risks and benefits of an epidural injection were discussed. They include but are not limited to infection, worsening pain, no improvement in pain, bleeding, nerve damage and the patient elects to proceed. PROCEDURE NOTE: The patient was taken to the procedure area. She was then assisted in getting on examination table. Her back was sterilely prepped with a Betadine solution. A 0.25% bupivacaine was infiltrated. A 17-gauge Tuohy with loss of resistance technique was used to gain access to the epidural space. There was no CSF, heme or paresthesia. Fluoroscopy using a transforaminal approach at the L4-L5 area was undertaken. The patient's pain today was more in the L4-L5 dermatomal area. A total of 80 mg Depo-Medrol, 40 mg triamcinolone was injected. The patient's pain decreased to 0 at the time of discharge. She [address] [address] PAIN MANAGEMENT CONSULTATION Name: MICHAEL MONTANA Room #: REG [facility].#: [id number] Admission: 04/17/20 Attend Phys: Kiel Rose MD Discharge: Date of : 52 Report #: [id number] will follow up in the future as needed. We would like to thank you for letting us participate in her care. <ELECTRONICALLY SIGNED> By: Kiel Rose MD 04/24/20 0939 0914 1204 Kiel Rose MD /nt
== END | disposition home or self-care (01) ==
LOC: PAIN 06:50
PROVIDERS: ATTEND Anesthesiology Pain Medicine
DX: M54.16 Radiculopathy, lumbar region (principal); G89.29 Other chronic pain; J44.9 Chronic obstructive pulmonary disease, unspecified; E09.9 Drug or chemical induced diabetes mellitus without complications; F32.9 Major depressive disorder, single episode, unspecified; M10.9 Gout, unspecified; K21.9 Gastro-esophageal reflux disease without esophagitis; H40.9 Unspecified glaucoma; G47.30 Sleep apnea, unspecified; Z98.890 Other specified postprocedural states; Z79.899 Other long term (current) drug therapy; Z79.82 Long term (current) use of aspirin; Z79.891 Long term (current) use of opiate analgesic

== ENCOUNTER → 2020-08-28 | Outpatient (CLI) | payer OTHER | LOC: LAB 10:08 | PROVIDERS: ATTEND Specialist | DX: Z01.812 Encounter for preprocedural laboratory examination (principal); Z20.828 Contact with and (suspected) exposure to other viral communicable diseases ==

== ENCOUNTER → 2020-09-02 | Outpatient (CLI) | payer OTHER ==
[~2020-09-02] VITALS: Ht 167.6 cm; Wt 77.1 kg
--- NOTE | 2020-09-04 10:50 | P ---
[facility] [place] [address] PROCEDURE REPORT Name: MCIHAEL MONTANA Room #: REG [facility].#: [id number] Admission: 09/02/20 Attend Phys: Lorenzo Bryson Discharge: Date of : 52 Report #: [id number] THIS REPORT FOR: cc: Hank Gómez,Lorenzo Flynn MD ~ CC: Lorenzo Gómez MD DATE OF SERVICE: 09/02/2020 PROCEDURE PERFORMED: Colonoscopy with biopsies. HISTORY OF PRESENT ILLNESS: The patient is a 69-year-old female with a history of intermittent loose stools and fecal incontinence. It has been ongoing for several years. She had lumbar surgery without much improvement last year in her symptoms. She denies any blood in her stools. Her weight has been stable. No family history of colon cancer. She has a mother with a history of ulcerative colitis and a brother with a history of Crohn's disease. She averages 2-3 loose bowel movements per day. DESCRIPTION OF PROCEDURE: The risks and benefits of the procedure were explained to the patient, those risks including but not limited to bleeding, perforation and the risk of sedation. She understood these risks and gave informed consent. Sedation was given using propofol per anesthesia. Next, a digital rectal exam was initially performed, which was normal. Next, using a standard Olympus colonoscope, the scope was placed in the patient's anus and advanced under direct vision to the cecum. The overall prep was good. The cecum and ileocecal valve were normal in appearance. The ascending, transverse and descending colon were normal. A few small diverticula were noted in the sigmoid colon, otherwise normal. The rectal mucosa was normal. Close examination of the anal canal was normal. The scope was then withdrawn and the procedure terminated. The patient tolerated the procedure well. Random biopsies were also obtained to rule out the possibility of microscopic colitis. IMPRESSION: 1. Sigmoid diverticulosis, mild. 2. Otherwise normal colonoscopy. RECOMMENDATIONS: 1. Await biopsy results. 2. Recommend a trial of Questran to see if this could firm up her stools and help with intermittent fecal incontinence. If this is not helpful, may need to [address] [address] PROCEDURE REPORT Name: MICHAEL MONTANA Room #: REG [facility] Bacilio#: [id number] Admission: 09/02/20 Attend Phys: Lorenzo Bryson Discharge: Date of : 52 Report #: [id number] consider anorectal manometry at that point. Thank you for allowing me to participate in her care. <ELECTRONICALLY SIGNED> By: Lorenzo Bourne MD 09/04/20 1050 1033 04 Lorenzo Bourne MD /nt
--- NOTE | 2020-09-04 17:06 | PATH ---
[facility] [address] [place] [address] PATHOLOGY RPT PROCEDURE Name: TEGAN MONTANA Room #: REG [facility].#: [id number] Admission: 09/02/20 Date of : 52 Discharge: Report #: [id number] Path Case #: [id number] Accession Number: [id number] . 01 Material submitted: . colon - RANDOM BIOPSY R/O MICROSCOPIC COLITIS . 01 Clinical history: . CHANGE IN BOWEL HABITS . 02 Diagnosis: Large intestine mucosa, random, rule out microscopic colitis, endoscopic biopsy: - Mild focal active colitis, see comment. - Rare pigmented macrophages within lamina propria, compatible with melanosis coli. - Negative for dysplasia or malignancy. (IUV:radio/tv technician; 09/04/2020) MBR 09/04/2020 1211 Local . 02 Comment: Sections of the colonic mucosa designated "random, rule out microscopic colitis" show focal cryptitis, and a moderately cellular lamina propria composed predominantly of lymphocytes and plasma cells and numerous eosinophils. Surface ulceration is not identified. There are no crypt abscesses, granulomas or viral inclusions. The process affects all the fragments with a similar intensity. Given the description, the differential diagnosis includes focal self-limited or resolving episode of colitis, medication or drug induced colitis including the use of laxatives (melanosis coli noted), diverticulitis amongst other possibilities. Please correlate with clinical as well as endoscopic findings. (IUV:radio/tv technician; 09/04/2020) . 02 Electronically signed: . Cristina Bergman MD, Pathologist NPI- [id number] . 01 Gross description: . Received in formalin labeled "Tegan Montana random BX" are multiple farias-brown soft tissue fragments measuring in aggregate 1.0 x 0.6 x 0.1 cm. The specimen is submitted entirely in A1. ([facility] [place]/03/2020) [facility] 09/03/2020 1607 Local . 02 Pathologist provided ICD-10: K52.9 . 02 CPT . [address] [address] PATHOLOGY RPT PROCEDURE Name: SHWETHAJANIEODALYSTEGAN RODNEY Room #: REG [facility] Bacilio#: [id number] Admission: 09/02/20 Date of : 52 Discharge: Report #: [id number] Path Case #: [id number] Specimen Comment: A courtesy copy of this report has been sent to [phone] Specimen Comment: Report sent to Performed at: [address], [place], [place] [id number] MD Ariel Lemus MD Phone: [phone] Performed at: [address] [id number] MD Cristina Bergman MD Phone: [phone]
== END | disposition home or self-care (01) ==
LOC: GI 08:55
PROVIDERS: ATTEND Specialist
DX: K52.9 Noninfective gastroenteritis and colitis, unspecified (principal); R15.9 Full incontinence of feces; K57.30 Diverticulosis of large intestine without perforation or abscess without bleeding; K21.9 Gastro-esophageal reflux disease without esophagitis; J43.9 Emphysema, unspecified; F32.9 Major depressive disorder, single episode, unspecified; F41.9 Anxiety disorder, unspecified; M10.9 Gout, unspecified; H40.9 Unspecified glaucoma; Z98.890 Other specified postprocedural states; Z79.899 Other long term (current) drug therapy; Z96.611 Presence of right artificial shoulder joint; Z98.51 Tubal ligation status; Z87.891 Personal history of nicotine dependence
CPT/HCPCS: 62110; 62900

== ENCOUNTER → 2021-02-18 | Outpatient (CLI) | payer OTHER | LOC: RAD 12:26 | PROVIDERS: ATTEND Neuromusculoskeletal Medicine & OMM | DX: Z12.31 Encounter for screening mammogram for malignant neoplasm of breast (principal) ==

== ENCOUNTER 2021-05-12 15:15 | Inpatient (IN) | payer OTHER ==
[~2021-05-12] VITALS: Ht 162.6 cm; Wt 108.9 kg
[2021-05-12 15:15] VITALS: BP 162/109
[2021-05-12 17:28] LABS: ABSOLUTE NEUTROPHILS 4.1 thou/uL (1.4-8.2); BASOPHILS 0.6 % (0.0-2.0); HEMATOCRIT 40.4 % (37.0-47.0); HEMOGLOBIN 13.4 gm/dL (12.0-15.0); MCH 30.5 pg (26.0-34.0); MCHC 33.2 g/dL (28.0-37.0); MONOCYTES 9.7 % (1.0-8.0); PLATELET COUNT 134 thou/uL (150-400); POLYS 65.7 % (36.0-66.0); RBC 4.39 mil/uL (4.20-5.00); RDW 14.2 % (10.5-14.5); WBC 6.2 thou/uL (4.0-11.0)
[2021-05-12 17:47] LABS: ANION GAP 7 mmol/L (7-16); BUN 16 mg/dL (7-18); CALCIUM 9.4 mg/dL (8.5-10.1); CHLORIDE 105 mmol/L (98-107); CO2 28 mmol/L (21-32); GLUCOSE 96 mg/dL (74-106); POTASSIUM 3.9 mmol/L (3.5-5.1); SODIUM 140 mmol/L (136-145)
[2021-05-12 17:50] LABS: APTT 24.8 Seconds (24.5-32.8); INR 0.98; PROTIME 10.7 Seconds (10.5-12.1)
[2021-05-12 17:58] LABS: ALBUMIN 3.7 g/dL (3.4-5.0); SGOT 31 U/L (15-37); SGPT 29 U/L (14-59); TOTAL BILIRUBIN 0.7 mg/dL (0.2-1.0); TOTAL PROTEIN 6.9 g/dL (6.4-8.2); TROPONIN-I <0.06 ng/mL (<0.06)
[2021-05-12 20:40] VITALS: BP 185/108
[2021-05-12 21:09] VITALS: BP 194/79
[2021-05-13] MEDS ORDERED: ROSUVASTATIN CA20 MG PO (00:06)
[2021-05-13 04:41] VITALS: BP 120/57
--- NOTE | 2021-05-13 07:12 | EKG ---
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 : 1950 Requested By: Von Adams Order Number: [id number] MD: Bhavesh Álvarez Measurements Intervals [place] Rate: 63 P: 2 MT: 187 QRS: -56 QRSD: 94 T: 60 QT: 426 QTc: 437 Interpretive Statements Sinus rhythm Left anterior fascicular block Abnormal R-wave progression, late transition Compared to ECG 07/08/2019 13:17:57 No significant changes Electronically Signed On 05-13-2021 7:11:52 CDT by Bhavesh Álvarez [email or web address] <ELECTRONICALLY SIGNED> By: Bhavesh Álvarez MD, [facility] 05/13/21 0711 1635 163 Bhavesh Álvarez MD, [facility] /EPI
[2021-05-13 08:59] VITALS: BP 127/60
--- NOTE | 2021-05-13 09:15 | 2DMMODE ---
[facility] [place] [address] 2 D/M-MODE ECHOCARDIOGRAM Name: MICHAEL MONTANA Room #: 364-P ADM IN M.R.#: [id number] Admission: 05/12/21 Attend Phys: Zamzam Lopez MD Discharge: Date of : 52 Report #: [id number] THIS REPORT FOR: cc: Hank Gómez Steven F. DO Santiago, Patrick MD [facility] ~ APPROVED REPORT Study performed: 05/13/2021 08:21:30 EXAM: Comprehensive 2D, Doppler, and color-flow Echocardiogram Patient Location: Bedside Room #: 364 Status: routine BSA: 2.11 HR: 91 bpm BP: 120/57 mmHg Rhythm: NSR Other Information Study Quality: Good Indications Exertional dyspnea. COPD 2D Dimensions IVSd: 12.70 (7-11mm) LVOT Diam: 20.79 (18-24mm) LVDd: 40.50 mm PWd: 12.48 (7-11mm) LVDs: 25.33 (25-40mm) Left Atrium: 31.57 (27-40mm) Aortic Root: 34.05 mm Volumes Left Atrial Volume (Systole) Single Plane 4CH: 36.06 mL Single Plane 2CH: 38.35 mL LA ESV Index: 18.00 mL/m2 Aortic Valve AoV Peak Shelton.: 1.53 m/s AO Peak Gr.: 9.34 mmHg LVOT Max P.74 mmHg LVOT Max V: 1.09 m/s KRYSTIN Vmax: 2.42 cm2 [facility] [address] [place] [address] 2 D/M-MODE ECHOCARDIOGRAM Name: MICHAEL MONTANA Room #: 364-P [facility] IN [facility].#: [id number] Admission: 05/12/21 Attend Phys: Alfred Zaman Discharge: Date of : 52 Report #: [id number] Mitral Valve E/A Ratio: 0.8 MV Decel. Time: 282.42 ms MV E Max Shelton.: 0.75 m/s MV A Shelton.: 0.91 m/s MV PHT: 81.90 ms IVRT: 96.89 ms Pulmonary Valve PV Peak Shelton.: 1.43 m/s PV Peak Gr.: 8.22 mmHg Tricuspid Valve RAP Estimate: 5.00 mmHg Left Ventricle The left ventricle is normal size. There is normal LV segmental wall motion. Mild concentric left ventricular hypertrophy. Left ventricular systolic function is hyperdynamic. LVEF is >70%. Mild diastolic dysfunction is present (impaired relaxation pattern). Right Ventricle The right ventricle is normal size. The right ventricular systolic function is normal. Atria The left atrium size is normal. The right atrium size is normal. Aortic Valve The aortic valve is normal in structure. No aortic regurgitation is present. There is no aortic valvular stenosis. Mitral Valve The mitral valve is normal in structure. Mild mitral annular calcification. There is no mitral valve regurgitation noted. No evidence of mitral valve stenosis. Tricuspid Valve The tricuspid valve is normal in structure. There is no tricuspid valve regurgitation noted. Unable to assess PA pressure. Pulmonic Valve The pulmonary valve is normal in structure. There is no pulmonic valvular regurgitation. [facility] [address] [place] [address] 2 D/M-MODE ECHOCARDIOGRAM Name: MICHAEL MONTANA Room #: 364-P [facility] IN .R.#: [id number] Admission: 05/12/21 Attend Phys: Alfred Zaman Discharge: Date of : 52 Report #: [id number] Great Vessels The aortic root is normal in size. Ascending aorta is not well visualized. IVC is normal in size and collapses >50% with inspiration. Pericardium There is no pericardial effusion. <Conclusion> Normal left ventricular size with mild concentric hypertrophy Ejection fraction at least 65% Grade 1 diastolic function Normal right ventricular size/function Normal atrial size Color-flow Doppler study was performed of the aortic/mitral/pulmonary/tricuspid valve Normal aortic valve structure and function Mild mitral valve insufficiency No tricuspid valve insufficiency Normal aortic root size No pericardial effusion <ELECTRONICALLY SIGNED> By: Bhavesh Álvarez MD, [facility] 05/13/2114 3 3 Bhavesh Álvarez MD, FACC /INF
--- NOTE | 2021-05-13 14:23 | NUR ---
CARE ASSUMED THIS AM, PT ALERT AND ORIENTED X4, DENIES CHEST PAIN, NAUSEA AND VOMITTING. PT ON ROOM AIR, SOB WITH EXERTION. COMPLAINS OF DYSPNEA WITH ACTIVITY. NO OTHER COMPLAINS. UP AD LOTUS. DENIES ANY NEEDS DEWEY
--- NOTE | 2021-05-13 15:18 | NUR ---
INITIAL ASSESSMENT: SW reviewed chart and spoke with nursing and attending physician. Pt was admitted from home due to exacerbation of asthma. Pt with hx of Alpha 1 antitrypsine deficiency/COPD. Pt is on IV abx and IV steroids. SW met with pt at bedside. Introduced role of SW. Pt known to SW from previous hospitalizations. Pt reports she lives at home with her spouse. Prior to admission, pt was independent with ADLs. Pt has 4 steps to enter her home. No steps inside. Pt has a cane/walker/cpap machine. Pt does have an airway clearance vest through [employer], which she has been using twice a day for 30 minutes per session. Pt also had been doing breathing treatments at home. Per pt, she has been doing well, and has not needed breathing treatments or to use her vest for several months. Pt's PCP is Dr. Gómez. Pulm: Dr. Rios. Plan is for pt to discharge home when medically stable. SW is following to assist as needed with discharge planning.
[2021-05-13 15:35] VITALS: BP 134/68
[2021-05-13 19:16] VITALS: BP 144/66
--- NOTE | 2021-05-13 22:32 | NUR ---
PT RESTING IN BED WATCHING TV. LOOSE COUGH AND PRN PROVIDED. PT USES CPAP AT HS. LUNGS COARSE, OBESE, GENERALIZED EDEMA. PT PROVIDED HS SNACK. L CHEST PORT INTACT. PT CALLS FOR ASSISTANCE.
[2021-05-14 04:45] VITALS: BP 157/73
[2021-05-14 05:42] LABS: HEMOGLOBIN 13.1 gm/dL (12.0-15.0); MCH 31.2 pg (26.0-34.0); MCHC 34.4 g/dL (28.0-37.0); MCV 90.8 fL (80.0-100.0); RBC 4.19 mil/uL (4.20-5.00); RDW 14.1 % (10.5-14.5); WBC 10.2 thou/uL (4.0-11.0)
[2021-05-14 05:54] LABS: CALCIUM 8.9 mg/dL (8.5-10.1); CREATININE 1.1 mg/dL (0.6-1.0)
[2021-05-14 07:42] VITALS: BP 182/91
--- NOTE | 2021-05-14 11:45 | NUR ---
DISCHARGE NOTE: SW reviewed chart and spoke with nursing and attending physician. Pt is medically stable for discharge home today. SW met with pt at bedside to discuss discharge plan. Pt is agreeable with plan. No discharge needs identified at this time. Pt states she is worried about her son, who was recently diagnosed with COVID and has a hx of substance abuse. Emotional support and active listening provided. Pt's car is at the hospital and she will drive herself home. No SW needs identified at this time, but is available to assist should needs arise.
[2021-05-14] MEDS ORDERED: AZITHROMYCIN500 MG PO ×2 (12:06)
[2021-05-14] MEDS ORDERED: GUAIFEN-CODEINE10 ML PO ×2 (12:06)
[2021-05-14] MEDS ORDERED: PREDNISONE 10 M10 M1 PO ×2 (12:07)
[2021-05-14 12:18] VITALS: BP 182/91
--- NOTE | 2021-05-14 13:50 | NUR ---
ASSUMED PATIENT CARE AT 0700. A/O X4. SOB WITH EXERTION. TOLERATED RA. LEFT PORT DEACTIVATED. DC TO HOME NOW.
== END 2021-05-14 13:55 | disposition home or self-care (01) | DRG 202 ==
LOC: ER 15:15 → EROBS 20:07 → 3W 20:07
PROVIDERS: Emergency Medicine; ADMIT Hospitalist; ATTEND Hospitalist
DX: J45.51 Severe persistent asthma with (acute) exacerbation (principal); I50.31 Acute diastolic (congestive) heart failure; J44.1 Chronic obstructive pulmonary disease with (acute) exacerbation; Z68.41 Body mass index [BMI] 40.0-44.9, adult; J98.11 Atelectasis; Z20.822 Contact with and (suspected) exposure to COVID-19; Z96.641 Presence of right artificial hip joint; M10.9 Gout, unspecified; K21.9 Gastro-esophageal reflux disease without esophagitis; F32.9 Major depressive disorder, single episode, unspecified; Z96.611 Presence of right artificial shoulder joint; E88.01 Alpha-1-antitrypsin deficiency; E66.01 Morbid (severe) obesity due to excess calories; Z96.643 Presence of artificial hip joint, bilateral; E78.00 Pure hypercholesterolemia, unspecified; Z86.711 Personal history of pulmonary embolism; Z88.6 Allergy status to analgesic agent; Z88.1 Allergy status to other antibiotic agents; Z88.0 Allergy status to penicillin; Z88.2 Allergy status to sulfonamides; Z88.8 Allergy status to other drugs, medicaments and biological substances; Z87.891 Personal history of nicotine dependence; Z79.899 Other long term (current) drug therapy
CPT/HCPCS: 10879

== ENCOUNTER 2021-05-18 12:03 | Inpatient (IN) | payer OTHER ==
[~2021-05-18] VITALS: Ht 162.6 cm; Wt 83.0 kg
[~2021-05-18 12:03] MED LIST changes: +AZITHROMYCIN500 MG PO; +GUAIFEN-CODEINE10 ML PO; +ROSUVASTATIN CA20 MG PO
[2021-05-18 12:04] VITALS: BP 106/66
[2021-05-18 14:05] LABS: HEMATOCRIT 43.9 % (37.0-47.0); HEMOGLOBIN 14.3 gm/dL (12.0-15.0); MCH 30.1 pg (26.0-34.0); MCHC 32.5 g/dL (28.0-37.0); MCV 92.5 fL (80.0-100.0); RBC 4.75 mil/uL (4.20-5.00); RDW 14.3 % (10.5-14.5); WBC 11.9 thou/uL (4.0-11.0)
[2021-05-18 14:10] LABS: CALCIUM 8.8 mg/dL (8.5-10.1); CREATININE 1.4 mg/dL (0.6-1.0); POTASSIUM 4.5 mmol/L (3.5-5.1)
[2021-05-18 17:31] VITALS: BP 132/60
[2021-05-18 17:57] VITALS: BP 116/47
--- NOTE | 2021-05-18 19:25 | NUR ---
PATIENT ARRIVED FROM ED AT 1814. PATIENT WAS EXTREMELY SOA WITH WHEEZING APON ARRIVAL FROM THE ED. DR. MASON NOTIFIED OF HOW SHORT OF AIR PT WAS AND OF PATIENT HAVING INCREASED ANXIETY. ORDERS FOR ABG RECIEVED. RT CALLED, BREATHING TX GIVEN. PATIENTS HOME CPAP SET UP.
[2021-05-18 20:28] LABS: HCO3 21.4 mmol/L (22.0-26.0); PCO2 33.1 mmHg (35.0-45.0); PO2 86.4 mmHg (80.0-100.0); pH 7.429 (7.360-7.450); sO2 96.9 % (92.0-98.0)
[2021-05-18 20:55] VITALS: BP 154/61
[2021-05-19 00:45] VITALS: BP 146/64
[2021-05-19 04:45] VITALS: BP 106/47
[2021-05-19 06:25] LABS: ABSOLUTE NEUTROPHILS 10.2 thou/uL (1.4-8.2); BASOPHILS 0.1 % (0.0-2.0); HEMATOCRIT 39.6 % (37.0-47.0); HEMOGLOBIN 13.2 gm/dL (12.0-15.0); MCH 30.6 pg (26.0-34.0); MCHC 33.4 g/dL (28.0-37.0); MCV 91.6 fL (80.0-100.0); PLATELET COUNT 162 thou/uL (150-400); POLYS 90.9 % (36.0-66.0); RBC 4.32 mil/uL (4.20-5.00); WBC 11.2 thou/uL (4.0-11.0)
[2021-05-19 06:42] LABS: CALCIUM 8.8 mg/dL (8.5-10.1); CREATININE 1.3 mg/dL (0.6-1.0); MAGNESIUM 2.2 mg/dL (1.8-2.4); POTASSIUM 4.2 mmol/L (3.5-5.1)
--- NOTE | 2021-05-19 07:26 | NUR ---
SLEPT PART OF SHIFT. UP AD LOTUS IN ROOM WITH STEADY GAIT. WORKING ON GOALS AND PLAN OF CARE FOR NOC. ADMISSION COMPLAINTS. CONTINUE TO ASSES. DENIES COMPLAINTS OF PAIN. STATES SHORTNESS OF AIR IS BETTER.
[2021-05-19 08:22] VITALS: BP 155/67
--- NOTE | 2021-05-19 12:30 | NUR ---
PT UP ADLIB IN ROOM AND DECLINED OT EVAL
[2021-05-19 15:16] VITALS: BP 149/76
--- NOTE | 2021-05-19 15:18 | NUR ---
SW completed assessment w/ pt via; telephone at bedside. Pt A&Ox4 NOK: Spouse Abhay [phone] - Spokesperson if becomes incapacitated Insurance: Medicare [place] & [employer] PCP: Hank Gómez DO Pt lives in ranch style home w/ spouse ADL: Independent - pt cooks/drives DME: Nebulizer w/ [place], bipap HH/SNF/ACUTE REHAB/DIALYSIS/LTAC Hx: HH after hip surgery years ago (agency unknown), Acute rehab Jul 2019 (Name unknown, pt states facility close to [address]) COVID Vaccine: Pfizer 29 January 2021 Transportation: Family vehicle D/C plan: Home w/ possible HH. SW following for therapy reccomendations
--- NOTE | 2021-05-19 19:55 | NUR ---
ASSUMED CARE SHIFT CHANGE. ASSESSMENT CHARTED.MEDS GIVEN. VSS DENIES PAIN. O2 SATS WNL ROOM AIR. WHEEZY/SOB WITH ACTIVITY. PT ASKING ABOUT DUPIXIENT AND GLASSIA MEDS- ORDERS FROM DR LARSEN. NOTIFIED PHARMACY REGARDING PHYSICIAN ORDERS TO RECEIVE PT HOME MEDS. THIS RN WAS TOLD BY JANEY FROM PHARMACY THAT SOCIAL STUDIES TEACHER STATED AGAINST POLICY TO RECEIVE MEDS. PT REQUESTS TO SPEAK TO PHYSICIAN IN AM. NOTIFIED NOC RN. PT DENIES FURTHER NEEDS. CONT POC. REPORT PASSED TO NOC RN.
[2021-05-19 19:59] VITALS: BP 160/72
[2021-05-20 04:51] VITALS: BP 151/71
--- NOTE | 2021-05-20 07:34 | NUR ---
SLEPT MOST OF SHIFT. STATES FEELS BETTER. DENIES COMPLAINTS OF PAIN. WORKING ON GOALS AND PLAN OF CARE. OWN CPAP AT [facility]. CONTINUE TO ASSES.
[2021-05-20 07:52] VITALS: BP 156/71
--- NOTE | 2021-05-20 09:21 | NUR ---
RD consulted, BMI 41, class III extreme obesity. Admit with SOA. Started on steroids. Pt reports hx steroid induced diabtes. BMP glucose levels 137-199. Consider starting accuchecks. Pt did not have any nutrition related questions, states she is aware of what to order from menu. Low nutrition risk
[2021-05-20 15:54] VITALS: BP 134/61
--- NOTE | 2021-05-20 16:57 | NUR ---
ASSESSMENT CHARTED - MEDS PER DEC - PT ABLE TO BE GIVEN HOME MEDS THIS SHIFT OF DUPIXENT AND GLABSI. AMBUALTED WITH PHYS THERAPY IN THE HALLS - SOB OF BREATH WITH EXERTION. UP TO THE BATHROOM INDEPENDANTLY. DANNAACATH REACCESSED THIS SHIFT. ABIODUN DIET AND FLUIDS. NO CO'S AT THE PRESENT TIME. STATES SHE IS COMFORTABLE. PT HAS BEEN TEARY ON AND OFF THIS SHIFT DUE TO PERSONAL THINGS HAPPENEING WITH SON AND OVER DIFFICULTY IN GETTING HOME MEDS GIVEN. NO CO'S AT PRESENT STATES SHE FEELS BETTER.
[2021-05-20 19:50] VITALS: BP 150/76
[2021-05-21 04:10] VITALS: BP 129/53
--- NOTE | 2021-05-21 05:16 | NUR ---
[facility] 1899. PT/VITALS STABLE. DENIES ANY PAIN AT THIS TIME. GOOD ENDURANCE TO ACTIVITY. SR ON MONITOR. ASSESSMETN CHARTED. P[ROGRESSING WELL WITH POC. PLAN IS TO CONTINUE WITH STEROID AND ABX THERAPY. NO DISTRESS NOTED THROUGH THE SHIFT. WILL CONTINUE TO MONITOR AND FOLLOW WITH POC
[2021-05-21 07:40] VITALS: BP 155/70
[2021-05-21 16:00] VITALS: BP 148/57
--- NOTE | 2021-05-21 17:53 | NUR ---
assessment as charted - meds as per dec. no co's of pain or nausea. enrico diet and fluids. seen by phys therapy ambulated in the [place]en. pt has no co's at the present time.
[2021-05-21 21:37] VITALS: BP 151/67
[2021-05-22 06:08] VITALS: BP 116/47
[2021-05-22 07:53] VITALS: BP 147/69
--- NOTE | 2021-05-22 15:05 | NUR ---
ASSUMED CARE SHIFT CHANGE. VSS. O2 SATS WNL RA. UP ADLIB ABIODUN WELL. PT BREATHING BETTER, COUGH REMAINS. SOB WITH ACTIVITY. DC ONCE MEDICALLY STABLE. CONT POC. WILL PASS REPORT TO MACK.
[2021-05-22 15:33] VITALS: BP 131/66
--- NOTE | 2021-05-22 17:21 | NUR ---
ASSUMED CARE AT 1600. PT RESTING COMFORTABLY. AFEBRILE, VSS WNL. PT AND AT BEDSIDE HAVE BEEN UPDATED AND EDUCATED ON PT CONDITION AND POC. PT PROGRESSING TOWARDS POC.
[2021-05-22 19:45] VITALS: BP 128/56
[2021-05-23 03:58] VITALS: BP 130/71
--- NOTE | 2021-05-23 06:30 | NUR ---
Pt slept comfortable with home cpap device entire night. Denied pain or discomfort. Voided x 2. No BM. Insulin given at HS per sliding scale.
--- NOTE | 2021-05-23 06:40 | NUR ---
Report called to 4 paris nurse. Anticipating transfer this morning.
[2021-05-23 07:28] VITALS: BP 117/59
--- NOTE | 2021-05-23 09:04 | NUR ---
PT UP IN BED CALL LIGHT WITH IN REACH, NO PAIN OR DISCOMFORT AT THIS TIME, NO NEEDS AT THIS TIME, PT EDUCATED ON USE OF CALL LIGHT AND FALL RISK.
[2021-05-23 13:19] LABS: HEMATOCRIT 40.1 % (37.0-47.0); HEMOGLOBIN 13.4 gm/dL (12.0-15.0); MCH 30.7 pg (26.0-34.0); MCHC 33.3 g/dL (28.0-37.0); MCV 92.2 fL (80.0-100.0); RBC 4.35 mil/uL (4.20-5.00); RDW 14.4 % (10.5-14.5); WBC 8.5 thou/uL (4.0-11.0)
[2021-05-23 13:28] LABS: CREATININE 1.2 mg/dL (0.6-1.0); POTASSIUM 4.4 mmol/L (3.5-5.1)
[2021-05-23 16:10] VITALS: BP 154/67
--- NOTE | 2021-05-23 17:09 | NUR ---
Received pt for CCU , vs stable. diet and medications tolerated well. Blood sugar monitored, medications given as per emar. Has not had a bm for this shift. POC followed with no signs or verbalizations of distress noted.
[2021-05-23 21:08] VITALS: BP 127/55
--- NOTE | 2021-05-24 03:11 | NUR ---
patient aox4 makes needs known. patient had c pap at night no soa or distress noted. patient denied pain or discomfort. fall precaution in place. patient in bed asleep at this time breathing regular and unlaboured.
[2021-05-24] MEDS ORDERED: AZITHROMYCIN500 MG PO ×2 (15:38)
[2021-05-24] MEDS ORDERED: IPRAT-ALBUT 0.5-3 ML INH ×2 (15:38)
[2021-05-24] MEDS ORDERED: PROTONIX 20 MG20 M1 PO ×2 (15:38)
[2021-05-24 16:21] VITALS: BP 127/55
--- NOTE | 2021-05-24 16:59 | NUR ---
CARE TEAM INDICATED THAT PT IS MEDICALLY STABLE TO DC HOME THIS DAY. PHYSICIAN ORDERED PT AND NURSING. PT INDICATED SHE DIDN'T WANT HH SERVICES. CM NOTIFIED PHYSICIAN. PT INDICATED SHE DOENS'T FEEL SHE NEEDS THEM. SPOUSE CAN ASSIST. PT'S DTR TP TRANSPORT HER HOME. NO OTHER CM INTERVENTION INDICATED. CASE CLOSED.
--- NOTE | 2021-05-24 18:07 | NUR ---
Assumed pt care this am, vs stable was able to work with phuysical therapy. VS stable. POC followed with no signs or verbalizations of distress noted. Port deaccessed as per emar. Diet and medications well tolerated. DC instructions given to the pt, prescriptions were sent to the pharmacy. Pt is now dc, picked up by her daughter.
== END 2021-05-24 17:37 | disposition home or self-care (01) | DRG 871 ==
LOC: ER 12:03 → EROBS 18:05 → 2N 18:05 → 4W 18:05 → 2N 18:06 → 4W 05-23 10:16
PROVIDERS: Emergency Medicine; Nurse Practitioner; ADMIT Internal Medicine; ATTEND Internal Medicine
PROC: 5A09357 Assistance with Respiratory Ventilation, Less than 24 Consecutive Hours, Continuous Positive Airway Pressure (ICD-10-PCS; principal; 2021-05-19)
DX: A41.9 Sepsis, unspecified organism (principal); J96.01 Acute respiratory failure with hypoxia; N17.0 Acute kidney failure with tubular necrosis; J15.6 Pneumonia due to other Gram-negative bacteria; N17.9 Acute kidney failure, unspecified; J44.1 Chronic obstructive pulmonary disease with (acute) exacerbation; J44.0 Chronic obstructive pulmonary disease with (acute) lower respiratory infection; E86.0 Dehydration; R73.9 Hyperglycemia, unspecified; E66.01 Morbid (severe) obesity due to excess calories; M10.9 Gout, unspecified; K21.9 Gastro-esophageal reflux disease without esophagitis; E88.01 Alpha-1-antitrypsin deficiency; F32.9 Major depressive disorder, single episode, unspecified; G47.33 Obstructive sleep apnea (adult) (pediatric); Z20.822 Contact with and (suspected) exposure to COVID-19; Z96.643 Presence of artificial hip joint, bilateral; Z96.611 Presence of right artificial shoulder joint; Z79.899 Other long term (current) drug therapy; Z86.711 Personal history of pulmonary embolism; Z88.1 Allergy status to other antibiotic agents; Z88.5 Allergy status to narcotic agent; Z88.0 Allergy status to penicillin; Z88.2 Allergy status to sulfonamides; Z88.8 Allergy status to other drugs, medicaments and biological substances; Z87.891 Personal history of nicotine dependence; Z72.89 Other problems related to lifestyle; Z68.31 Body mass index [BMI] 31.0-31.9, adult; J40 Bronchitis, not specified as acute or chronic
CPT/HCPCS: 10045; 10047; 10081

== ENCOUNTER 2021-06-18 13:15 | Inpatient (IN) | payer OTHER ==
[~2021-06-18] VITALS: Ht 162.6 cm; Wt 132.2 kg
[~2021-06-18 13:15] MED LIST changes: +IPRAT-ALBUT 0.5-3 ML INH; +PROTONIX 20 MG20 M1 PO; +SEROQUEL 100 M100 M1 PO; -SEROQUEL XR 20200 MG PO
[2021-06-18 13:19] VITALS: BP 183/110
[2021-06-18 13:46] LABS: ABSOLUTE NEUTROPHILS 6.7 thou/uL (1.4-8.2); BASOPHILS 0.4 % (0.0-2.0); EOSINOPHILS 0.2 % (0.0-3.0); HEMATOCRIT 39.3 % (37.0-47.0); LYMPHOCYTES 19.7 % (24.0-44.0); MCH 30.7 pg (26.0-34.0); MCHC 33.1 g/dL (28.0-37.0); MCV 92.8 fL (80.0-100.0); MONOCYTES 7.6 % (1.0-8.0); PLATELET COUNT 196 thou/uL (150-400); POLYS 72.1 % (36.0-66.0); RBC 4.23 mil/uL (4.20-5.00); RDW 13.9 % (10.5-14.5); WBC 9.3 thou/uL (4.0-11.0)
[2021-06-18 14:01] LABS: CALCIUM 8.6 mg/dL (8.5-10.1); CREATININE 1.2 mg/dL (0.6-1.0); POTASSIUM 4.1 mmol/L (3.5-5.1)
[2021-06-18 14:09] LABS: ALBUMIN 3.5 g/dL (3.4-5.0); TOTAL BILIRUBIN 0.3 mg/dL (0.2-1.0); TOTAL PROTEIN 6.7 g/dL (6.4-8.2)
--- NOTE | 2021-06-18 15:20 | NUR ---
PT STATES SHE ALWAYS HAS A BAD COUGH BUT NOTES IT IS NOT PRODUCTIVE PT STATES IN THE PAST THEY HAVE HAD TO SUCTION OUT SPUTUM D/T IT BEING SO THICK. PT STATES IF SHE IS STILL AND DOES NOT TALK SHE CAN BREATHE BETTER. RN ENCOURAGE PT TO REST AND RELAX AND FOCUS ON SLOW DEEP BREATHS IN HER NOSE OUT OF HER MOUTH AT THIS TIME. PT VERBALIZED UNDERSTANDING. PT REMAINS ON RA. CALL LIGHT ENCOURAGED TO USE
[2021-06-18 17:10] VITALS: BP 165/80
[2021-06-18 17:24] VITALS: BP 174/78
--- NOTE | 2021-06-18 17:42 | NUR ---
70 year old female presents to the ED on 06-18-21 with complaints of shortness of breath and cough. Noted as Negative per ID NOW in the ED and patient voices vaccinated with Pfizer on 01-31-21 and 02-18-21. Upon arrival to ED the patient was unable to speak related to tachypnea. Patient is currently on 40mg of Prednisone daily. WBC normal, but she has bandemia, lactic elevated with bandemia reactive to high dose prednisone. Patient is being admitted with COPD exacerbation and IV Steroid and IV abt's. Of note patient has a history of Alpha 1 Antitrypsin Deficiency. Patient last here and seen by CM and discharged on May 24 home with no needs as daughter transported home to where the patient lives with her spouse, Obdulio at [phone]. The patient's PCP is Dr. Villalpando and her email marketing manager is Dr. Rios. Per ED assessments and MD documented interactions the patient is A&O x4. Anticipate as plan of care with medical team develops CM will follow for any identified needs at discharge.
[2021-06-18 17:58] VITALS: BP 150/72
--- NOTE | 2021-06-18 19:51 | NUR ---
pt arrived to floor per cart from emergency room at 1800 in stable condition. Admission hx completed.Call light and bed usage explained to pt.Later dinner given.Received call from lab about pt lactic acid.Dr Ventura paged but no return called received. Report off to Oanh vieyra to notify head of operation and logistics doctor baltazar.
[2021-06-18 20:14] VITALS: BP 173/56
--- NOTE | 2021-06-19 05:36 | NUR ---
patient aox3 makes need known.care assumed at 1900 patient was soa with or without activity. patient had increased anxiety prn given. breathing treatment given. patient lactic acid was high new order of 500 ml to be given in 2 hours. patient is up at steven. no soa or distress noted this shift.patient in bed asleep at this time breathing regular and unlaboured.
[2021-06-19 08:21] VITALS: BP 136/46
[2021-06-19 15:32] LABS: BASOPHILS 0.1 % (0.0-2.0); HEMATOCRIT 37.2 % (37.0-47.0); HEMOGLOBIN 12.3 gm/dL (12.0-15.0); LYMPHOCYTES 5.8 % (24.0-44.0); MCH 30.6 pg (26.0-34.0); MCHC 33.1 g/dL (28.0-37.0); MCV 92.4 fL (80.0-100.0); MONOCYTES 3.3 % (1.0-8.0); PLATELET COUNT 166 thou/uL (150-400); POLYS 90.8 % (36.0-66.0); RBC 4.03 mil/uL (4.20-5.00); RDW 13.9 % (10.5-14.5); WBC 12.1 thou/uL (4.0-11.0)
--- NOTE | 2021-06-19 15:36 | NUR ---
ASSUMED CARE OF PT AT 1300 THIS AFTERNOON. PT IS A/OX4, LUNGS DIMINISHED IN ALL [place]. SKIN INTACT WITHOUT TENTING. PT IS SOA DURING TALKING. ASSESSMENTS NOTED IN CHART OTHERWISE UNREMARKABLE. INDWELLING CATH ORDERED TO BE INSERTED. CENTRAL LINE IN LT CHEST. PT IS AMBULATORY WITH NO NEEDS. CALL LIGHT AND OTHER NEEDS ARE IN REACH. MEDS AND TX GIVEN NEEDED AND SCHEDULED.WILL MONITOR AND NOTE ANY CHANGES.
[2021-06-19 15:43] LABS: ALBUMIN 3.3 g/dL (3.4-5.0); CALCIUM 8.4 mg/dL (8.5-10.1); CREATININE 1.3 mg/dL (0.6-1.0); MAGNESIUM 2.1 mg/dL (1.8-2.4); POTASSIUM 4.3 mmol/L (3.5-5.1); TOTAL BILIRUBIN 0.3 mg/dL (0.2-1.0); TOTAL PROTEIN 6.3 g/dL (6.4-8.2)
[2021-06-19 17:10] VITALS: BP 142/48
[2021-06-19 20:25] VITALS: BP 151/64
[2021-06-19 23:41] LABS: URINE BILIRUBIN NEGATIVE (Negative); URINE BLOOD NEGATIVE (Negative); URINE CLARITY CLEAR; URINE COLOR YELLOW; URINE GLUCOSE-RANDOM* NEGATIVE (Negative); URINE KETONES NEGATIVE (Negative); URINE LEUKOCYTES-REFLEX NEGATIVE (Negative); URINE NITRITE-REFLEX NEGATIVE (Negative); URINE PROTEIN (DIPSTICK) NEGATIVE (Negative); URINE UROBILINOGEN 0.2 E.U./dl (0.2-1.0)
[2021-06-20 05:02] LABS: HEMATOCRIT 34.5 % (37.0-47.0); HEMOGLOBIN 11.6 gm/dL (12.0-15.0); MCH 31.1 pg (26.0-34.0); MCHC 33.5 g/dL (28.0-37.0); MCV 92.9 fL (80.0-100.0); RBC 3.71 mil/uL (4.20-5.00); RDW 13.9 % (10.5-14.5)
[2021-06-20 05:37] LABS: CALCIUM 7.9 mg/dL (8.5-10.1); CREATININE 1.1 mg/dL (0.6-1.0); MAGNESIUM 2.1 mg/dL (1.8-2.4); POTASSIUM 3.8 mmol/L (3.5-5.1)
[2021-06-20 07:59] VITALS: BP 127/43
[2021-06-20 15:40] VITALS: BP 140/73
[2021-06-20 17:47] LABS: BE(vivo) -4.8 mmol/L (-2 to +3); HCO3 18.7 mmol/L (22.0-26.0); PCO2 30.4 mmHg (35.0-45.0); PO2 68.1 mmHg (80.0-100.0); pH 7.407 (7.360-7.450)
--- NOTE | 2021-06-20 20:11 | NUR ---
Assumed pt care this am, lactic acid was monitored through out the shift. MD advised on ciritcal lactic acid labs, mitigation documented as per emar. Uses a BIPAP at night and prn. SOB noted with exertion. Strict I & O documented. Endorsed to the night nurse.
[2021-06-20 21:32] VITALS: BP 176/86
[2021-06-21 07:45] VITALS: BP 149/69
--- NOTE | 2021-06-21 08:22 | NUR ---
Assumed pt care at 1900. A/OX4,VSS. Denies pain on assessment. Up ad steven in room,gets dyspnea with exertion as well as a non productive cough from talking too much. Pts lacric acid elevated and flactuating up and down;Sabina CRYPTOLOGIC TECHNICIAN notified new orders notedand implemented and pt updated will continue to monitor pt. Port a cath in place on right chest and patent. Dr Benavides wrote orders for a saini catheter for strict I&O at night pt informed but she declined stating she had already told the no a day ago and she'll continue keeping track of her I&O after every intake or output encounter;pt records output after every bathroom trip. SR/SA on telemetry.
[2021-06-21 08:44] LABS: HEMOGLOBIN 11.3 gm/dL (12.0-15.0); MCH 30.7 pg (26.0-34.0); MCHC 33.3 g/dL (28.0-37.0); MCV 92.2 fL (80.0-100.0); PLATELET COUNT 139 thou/uL (150-400); RBC 3.69 mil/uL (4.20-5.00); RDW 13.9 % (10.5-14.5)
[2021-06-21 09:11] LABS: CALCIUM 7.6 mg/dL (8.5-10.1); MAGNESIUM 2.1 mg/dL (1.8-2.4); PHOSPHORUS 2.3 mg/dL (2.6-4.7); POTASSIUM 3.2 mmol/L (3.5-5.1); TOTAL BILIRUBIN 0.1 mg/dL (0.2-1.0); TOTAL PROTEIN 5.6 g/dL (6.4-8.2)
--- NOTE | 2021-06-21 09:28 | NUR ---
70 year old female presents to the ED on 06-18-21 with complaints of shortness of breath and cough. Noted as Negative per ID NOW in the ED and patient voices vaccinated with Pfizer on 01-31-21 and 02-18-21. Upon arrival to ED the patient was unable to speak related to tachypnea. Patient is currently on 40mg of Prednisone daily. WBC normal, but she has bandemia, lactic elevated with bandemia reactive to high dose prednisone. Patient is being admitted with COPD exacerbation and IV Steroid and IV abt's. Of note patient has a history of Alpha 1 Antitrypsin Deficiency. Patient last here and seen by CM and discharged on May 24 home with no needs as daughter transported home to where the patient lives with her spouse, Obdulio at [phone]. The patient's PCP is Dr. Villalpando and her general production manager is Dr. Rios. Per ED assessments and MD documented interactions the patient is A&O x4. Anticipate as plan of care with medical team develops CM will follow for any identified needs at discharge.
[2021-06-21 09:32] LABS: ABSOLUTE NEUTROPHILS 6.3 thou/uL (1.4-8.2); PLATELET ESTIMATE NORMAL
[2021-06-21 16:20] VITALS: BP 142/59
--- NOTE | 2021-06-21 20:16 | NUR ---
Assumed pt care at 7am.Pt in and out of bed independently.Assessment completed.Pt was depressed and emotionally disturbed related her disease problem.Emotional support given and pastoral care notified which later rounded on pt with some relief.Dr Rivers and Lorenzo here,order noted.Pt tolerated meds and diet.Will continue to monitor.
[2021-06-21 20:20] VITALS: BP 157/72
[2021-06-22 07:25] VITALS: BP 175/75
--- NOTE | 2021-06-22 08:00 | NUR ---
Assumed pt care at 1900.A/OX4,VSS. C/o shortness of air with exertion, has a non productive cough but states she is feeling some improvement. Wears a CPAP at night. Pt is up ad steven in room. Port a cath in place on right chest and patent,saline locked at this time.SA on telemetry,asymptomatic.
--- NOTE | 2021-06-22 14:17 | NUR ---
CARE TEAM INDICATED THAT PT IS PROGRESSING TOWARD GOAL OF DISCHARGE HOME. CM FOLLOWING REGARDING DC PLANNING.
[2021-06-22 16:07] VITALS: BP 177/97
--- NOTE | 2021-06-22 16:55 | NUR ---
ASSUMED CARE OF PATIENT AT SHIFT CHANGE. ASSESSMENT CHARTED. MEDS ADMINISTERED PER EMAR. NEW MEDICATION ADJUSTED AND NEW ORDERS IMPLEMENTED. PATIENT GETS UP INDEPOENDENTLY W STEADY GAIT. DENIES PAIN. TOLERATING PO INTAKE WELL. VOICES NO FURTHER NEEDS. CONTINUING FREQUENT MONITORING ON PATIENT
[2021-06-22 21:00] VITALS: BP 146/63
--- NOTE | 2021-06-23 05:59 | NUR ---
TODAY THIS PT HAS BEEN SA ON THE HEART MONITOR WITH NO STATED PAIN AND STABLE VS. SHE HAS BEEN ASLEEP FOR MOST OF THE NIGHT WITH HER CPAP ON. SHE DID TAKE A SHOWER LAST NIGHT WELL. SHE IS OTHERWISE AWAITING FOR THE NEXT PLAN. SHE TOLERATED HER ANTIBIOTICS WELL.
[2021-06-23 06:00] VITALS: BP 177/63
[2021-06-23 07:52] VITALS: BP 170/55
[2021-06-23] MEDS ORDERED: GLASSIA IV (09:58)
[2021-06-23 15:31] VITALS: BP 189/59
--- NOTE | 2021-06-23 16:43 | NUR ---
CARE TEAM INDICATED THAT PT IS PROGRESSING TOWARD GOAL OF DC HOME. CM FOLLOWING REGARDING DC PLANNING.
[2021-06-23 19:25] VITALS: BP 143/66
--- NOTE | 2021-06-24 04:35 | NUR ---
PATIENT AOX4 MAKES NEEDS KNOWN. PATIENT AMBULATES WITH STEADY GAITS. NO SOA OR DISTRESS NOTED. PATIENT USES C PAP AT NIGHT. PATIENT IS UP AT LOTUS. PATIENT IN BED ASLEEP AT THIS TIME BREATHING REGULAR AND UNLABOURED.
[2021-06-24 07:33] VITALS: BP 175/86
[2021-06-24 15:25] VITALS: BP 172/58
--- NOTE | 2021-06-25 04:48 | NUR ---
Pt. rested quietly at intervals during the night when checked on during frequent rounds. No c/o shortness of air. Up ad steven.
[2021-06-25 06:13] LABS: HEMATOCRIT 36.9 % (37.0-47.0); HEMOGLOBIN 12.4 gm/dL (12.0-15.0); MCH 31.1 pg (26.0-34.0); MCHC 33.6 g/dL (28.0-37.0); MCV 92.3 fL (80.0-100.0); PLATELET COUNT 119 thou/uL (150-400); RDW 14.1 % (10.5-14.5); WBC 8.9 thou/uL (4.0-11.0)
[2021-06-25 06:49] LABS: ALBUMIN 2.9 g/dL (3.4-5.0); CALCIUM 7.8 mg/dL (8.5-10.1); CREATININE 0.9 mg/dL (0.6-1.0); POTASSIUM 3.5 mmol/L (3.5-5.1); TOTAL BILIRUBIN 0.4 mg/dL (0.2-1.0); TOTAL PROTEIN 5.8 g/dL (6.4-8.2)
[2021-06-25 09:02] VITALS: BP 148/62
[2021-06-25 11:11] LABS: ABSOLUTE NEUTROPHILS 7.7 thou/uL (1.4-8.2); METAMYELOCYTES 1 %; PLATELET ESTIMATE NORMAL
--- NOTE | 2021-06-25 13:50 | NUR ---
ASSUMED PT CARE THIS AM. PT A&OX4, ABLE TO MAKE NEEDS KNOWN. PATIENT REMAINS CONTINENT, UP TO BATHROOM INDEPENDENTLY. PATIENT HAS NO COMPLAINTS OF PAIN, NUMBNESS, OR TINGLING. PATIENT ON ROOM AIR. MEDICATIONS TAKEN WITHOUT ANY ISSUE. CALL LIGHT WITHIN REACH.
[2021-06-25] MEDS ORDERED: PROTONIX 20 MG20 M1 PO (14:12)
[2021-06-25] MEDS ORDERED: SEROQUEL 100 M100 M1 PO (14:12)
[2021-06-25] MEDS ORDERED: SEROQUEL 50 MG50 MG PO (14:12)
[2021-06-25] MEDS ORDERED: SEROQUEL 25 MG25 M1 PO (14:12)
[2021-06-25] MEDS ORDERED: PREDNISONE 10 M10 M1 PO (14:12)
[2021-06-25] MEDS ORDERED: GUAIFEN-CODEINE10 ML PO (14:12)
[2021-06-25] MEDS ORDERED: VITAMIN D325 MC2 PO (14:12)
[2021-06-25] MEDS ORDERED: SODIUM BICARBO650 M3 PO (14:12)
[2021-06-25] MEDS ORDERED: CARDIZEM CD120 MG PO (14:12)
[2021-06-25] MEDS ORDERED: MUCINEX600 MG PO (14:12)
[2021-06-25] MEDS ORDERED: LASIX 40 MG TAB40 M1 PO (14:12)
[2021-06-25 14:32] VITALS: BP 148/62
--- NOTE | 2021-06-25 14:33 | NUR ---
CARE TEAM INDICATED THAT PT IS MEDICALLY STABLE TO DC HOME THIS DAY. PHYSICIAN ORDERED PT, OT, AND NURSING HH SERVICES UPON DC. CM NOTIFIED PT AND SHE AGAIN INDICATED THAT SHE DIDN'T WANT ANY HH UPON DC. SHE INDICATED THAT SHE DIDN'T THINK SHE NEEDED IT AND THAT HE SPOUSE CAN ASSIST HER WITH WHATEVER SHE MIGHT NEED. CM NOTIFIED PHYSICIA. PT INDICATED THAT EITHER HER SPOUSE OR DTR WILL BE ABLE TO PROVIDE TRANSPORT HOME THIS DAY. NO OTHER CM INTERVENTION INDICATED. CASE CLOSED.
== END 2021-06-25 17:10 | disposition home health service (06) | DRG 871 ==
LOC: ER 13:15 → EROBS 15:10 → 4W 15:10
PROVIDERS: Internal Medicine; Nurse Practitioner Family; Pediatrics; ADMIT Internal Medicine; ATTEND Internal Medicine
PROC: 5A09357 Assistance with Respiratory Ventilation, Less than 24 Consecutive Hours, Continuous Positive Airway Pressure (ICD-10-PCS; principal; 2021-06-21)
DX: A41.9 Sepsis, unspecified organism (principal); J96.21 Acute and chronic respiratory failure with hypoxia; N17.0 Acute kidney failure with tubular necrosis; E87.2 Acidosis; J44.1 Chronic obstructive pulmonary disease with (acute) exacerbation; J44.0 Chronic obstructive pulmonary disease with (acute) lower respiratory infection; E46 Unspecified protein-calorie malnutrition; Z68.43 Body mass index [BMI] 50.0-59.9, adult; Z20.822 Contact with and (suspected) exposure to COVID-19; Z96.643 Presence of artificial hip joint, bilateral; M10.9 Gout, unspecified; K21.9 Gastro-esophageal reflux disease without esophagitis; F32.9 Major depressive disorder, single episode, unspecified; Z96.611 Presence of right artificial shoulder joint; J45.909 Unspecified asthma, uncomplicated; J20.9 Acute bronchitis, unspecified; J39.8 Other specified diseases of upper respiratory tract; E88.01 Alpha-1-antitrypsin deficiency; E66.01 Morbid (severe) obesity due to excess calories; N18.30 Chronic kidney disease, stage 3 unspecified; R73.9 Hyperglycemia, unspecified; M48.00 Spinal stenosis, site unspecified; M47.899 Other spondylosis, site unspecified; I12.9 Hypertensive chronic kidney disease with stage 1 through stage 4 chronic kidney disease, or unspecified chronic kidney disease; Z60.2 Problems related to living alone; R53.81 Other malaise; M85.80 Other specified disorders of bone density and structure, unspecified site; Z88.6 Allergy status to analgesic agent; Z88.1 Allergy status to other antibiotic agents; Z86.711 Personal history of pulmonary embolism; Z88.0 Allergy status to penicillin; Z88.2 Allergy status to sulfonamides; Z87.891 Personal history of nicotine dependence; Z83.79 Family history of other diseases of the digestive system
CPT/HCPCS: 10045

== ENCOUNTER 2021-07-12 11:06 | Emergency (ER) | payer OTHER ==
[~2021-07-12] VITALS: Ht 162.6 cm; Wt 117.9 kg
[~2021-07-12 11:06] MED LIST changes: +CARDIZEM CD120 MG PO; +LASIX 40 MG TAB40 M1 PO; +SEROQUEL 25 MG25 M1 PO; +SODIUM BICARBO650 M3 PO; +VITAMIN D325 MC2 PO
[2021-07-12 15:10] VITALS: BP 152/66
== END 2021-07-12 15:10 | disposition home or self-care (01) ==
LOC: ER 11:06
DX: T82.594A Other mechanical complication of infusion catheter, initial encounter (principal); K21.9 Gastro-esophageal reflux disease without esophagitis; J44.9 Chronic obstructive pulmonary disease, unspecified; M10.9 Gout, unspecified; F32.9 Major depressive disorder, single episode, unspecified; J45.909 Unspecified asthma, uncomplicated; Z90.49 Acquired absence of other specified parts of digestive tract; Z79.51 Long term (current) use of inhaled steroids; Z79.899 Other long term (current) drug therapy; Z79.891 Long term (current) use of opiate analgesic; Z79.1 Long term (current) use of non-steroidal anti-inflammatories (NSAID); Z88.6 Allergy status to analgesic agent; Z88.1 Allergy status to other antibiotic agents; Z88.0 Allergy status to penicillin; Z88.2 Allergy status to sulfonamides; Z88.8 Allergy status to other drugs, medicaments and biological substances; Z87.891 Personal history of nicotine dependence; Y83.8 Other surgical procedures as the cause of abnormal reaction of the patient, or of later complication, without mention of misadventure at the time of the procedure; Y92.89 Other specified places as the place of occurrence of the external cause

== ENCOUNTER 2021-09-02 17:04 | Emergency (ER) | payer OTHER ==
[~2021-09-02] VITALS: Ht 162.6 cm; Wt 110.7 kg
[2021-09-02] MEDS ORDERED: IBUPROFEN 800800 MG PO (18:45)
[2021-09-02] MEDS ORDERED: NORCO5 PO (18:45)
[2021-09-02 19:00] VITALS: BP 133/65
== END 2021-09-02 19:00 | disposition home or self-care (01) ==
LOC: ER 17:04
DX: S61.212A Laceration without foreign body of right middle finger without damage to nail, initial encounter (principal); S63.521A Sprain of radiocarpal joint of right wrist, initial encounter; K21.9 Gastro-esophageal reflux disease without esophagitis; J44.9 Chronic obstructive pulmonary disease, unspecified; F32.9 Major depressive disorder, single episode, unspecified; J45.909 Unspecified asthma, uncomplicated; Z79.899 Other long term (current) drug therapy; Z87.891 Personal history of nicotine dependence; Z98.51 Tubal ligation status; Z90.89 Acquired absence of other organs; Z88.2 Allergy status to sulfonamides; Z88.0 Allergy status to penicillin; Z88.5 Allergy status to narcotic agent; Z88.1 Allergy status to other antibiotic agents; W01.0XXA Fall on same level from slipping, tripping and stumbling without subsequent striking against object, initial encounter; Y93.89 Activity, other specified; Y92.89 Other specified places as the place of occurrence of the external cause; Y99.8 Other external cause status

== ENCOUNTER 2021-09-28 12:09 | Inpatient (IN) | payer OTHER ==
[~2021-09-28] VITALS: Ht 162.6 cm; Wt 101.6 kg
--- NOTE | ~2021-09-28 | EMS ---
[facility] [address] [place] [address] EMS Patient Care Report Name: MICHAEL MONTANA Room #: REG GABBY Ribera#: [id number] Admission: 09/28/21 Attend Phys: Discharge: Date of : 52 Report #: [id number] THIS REPORT FOR: //name// Report Transmitted: 09/28/2021 12:57 EMS Care Summary [facility] MED-ACT Incident [id number] @ 09/28/2021 11:29 Incident Location [address] [place] [address] Patient MICHAEL MONTANA Female, 70 Years 1950 Patient Address [address] [place] [address] [place] [address] Patient History Chronic Obstructive Pulmonary Disease (COPD),Hyperlipidemia,Morbid Obesity,Emphysema,Anxiety, Patient Allergies Penicillin allergy,Sulfa,Other drug allergy, Patient Medications Lasix, Bupropion, Meloxicam, Rosuvastatin, Zoloft, Quetiapine, Diltiazem, Chief Complaint "She's coughing a lot" Disposition Transported No Lights/[place] [facility] Reason Breathing Problem Transported To [facility] Narrative Upon arrival pt was found with staff from doctor's office. Pt was sitting on a wheelchair, a&ox3, airway open, self maintained, coughing forcefully, pulse [facility] [address] [place] [address] EMS Patient Care Report Name: MICHAEL MONTANA Room #: REG GABBY Ribera#: [id number] Admission: 09/28/21 Attend Phys: Discharge: Date of : 52 Report #: [id number] regular, pink mucosa, dry, warm, skin. Pt was very anxious. Crew was [id number] by pt and staff that pt has a history of COPD and emphysema. Pt began developing a cough yesterday. Today, pt had gone to a follow up appointment pertaining an injury on her wrist; While pt was in the waiting room, pt had a sudden worsening of her cough. Staff then contacted 911. 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 Pt stated she has been coughing up dark green phlegm. Pt denied having a productive cough at all times from her pneumonia. Pt has not been febrile nor around anybody sick with respiratory complaints. Pt is vaccinated against COVID19. Pt denied chest pain or hurting anywhere. Upon arrival rapid assessment was performed. Vitals were obtained. DuoNeb treatment was started and pt was coached and reassured as she was extremely agitated. Pt was assisted to stretcher, was secured, and was taken to ambulance. Pt was placed on cardiac cath lab technologist and was transported. Detailed assessment was done en route being normal or not significant except where noted. Vitals were monitored and rechecked. Pt eventually calmed down with reassurance and stopped coughing. Pt care was transferred to ED RN. Pt was assisted to ED bed without complications. Initial Vitals @11:39P: 121,R: 30,EtCO2: 0,SpO2: 91,AR Suspected: false @11:48P: 117,R: 33,BP: 153/107,Pain: 0/10,GCS: 15,EtCO2: 32,SpO2: 99,Revised Trauma: 11, @11:36P: 120,R: 33,Pain: 0/10,GCS: 15,Temp: 98.3F,SpO2: 93,Revised Trauma: 11, Impression Cough Procedures @12:02 Oxygen FlowRate: 8 Device: Nebulizer Response: ImprovedSucceeded @12:02 Albuterol - 1.5 Milligrams (mg) - Nebulized Response: Improved @12:03 Ipratropium - 0.5 Milligrams (mg) - Nebulized Response: Improved Timeline 11:27,Call Received 11:,Psap Call 11:29,Dispatched 11:29,En Route 11:33,On Scene 11:35,At Patient 11:36,BP: 160/ M,PULSE: 120,RR: 33 R,SPO2: 93 Ox,ETCO2: ,BG: ,PAIN: 0,GCS: 15, 11:39,BP: / M,PULSE: 121,RR: 30 R,SPO2: 91 Ox,ETCO2: 0 ,BG: ,PAIN: ,GCS: , 11:48,BP: 153/107 M,PULSE: 117,RR: 33 R,SPO2: 99 Ox,ETCO2: 32 ,BG: ,PAIN: 0,GCS: 15, 11:48,Depart Scene [address] [address] EMS Patient Care Report Name: MICHAEL MONTANA Room #: HAFSA Ribera#: [id number] Admission: 09/28/21 Attend Phys: Discharge: Date of : 52 Report #: [id number] 11:56,At Destination 12:02,Oxygen FlowRate: 8 Device: Nebulizer Response: ImprovedSucceeded, 12:02,Albuterol - 1.5 Milligrams (mg) - Nebulized,Response: Improved 12:03,Ipratropium - 0.5 Milligrams (mg) - Nebulized,Response: Improved 12:20,Call Closed Disclaimer v1.1 Copyright 2020 [employer] This EMS Care Summary contains data elements from the applicable legal record (which may be displayed differently). It is designed to provide pertinent information for the following purposes: continuity of care, clinical quality, and state data reporting. The complete legal record is available to ED staff and administrators of the receiving hospital in [facility]'s Patient Tracker. All data is provided "as is."
[2021-09-28 12:09] VITALS: BP 174/58
[~2021-09-28 12:09] MED LIST changes: +IBUPROFEN 800800 MG PO; +NORCO5 PO
[2021-09-28 13:50] LABS: ABSOLUTE NEUTROPHILS 8.5 thou/uL (1.4-8.2); BASOPHILS 0.2 % (0.0-2.0); EOSINOPHILS 0.4 % (0.0-3.0); HEMATOCRIT 39.5 % (37.0-47.0); HEMOGLOBIN 12.7 gm/dL (12.0-15.0); LYMPHOCYTES 18.1 % (24.0-44.0); MCH 29.5 pg (26.0-34.0); MONOCYTES 4.4 % (1.0-8.0); PLATELET COUNT 163 thou/uL (150-400); POLYS 76.9 % (36.0-66.0); RBC 4.29 mil/uL (4.20-5.00); RDW 14.4 % (10.5-14.5)
[2021-09-28 13:55] LABS: CALCIUM 8.7 mg/dL (8.5-10.1); CREATININE 1.3 mg/dL (0.6-1.0); POTASSIUM 3.8 mmol/L (3.5-5.1)
[2021-09-28 14:04] LABS: ALBUMIN 3.1 g/dL (3.4-5.0); TOTAL BILIRUBIN 0.3 mg/dL (0.2-1.0); TOTAL PROTEIN 6.5 g/dL (6.4-8.2)
[2021-09-28] MEDS ORDERED: MELOXICAM15 MG PO (19:31)
[2021-09-28] MEDS ORDERED: MYCOPHENOLATE500 MG PO (19:32)
[2021-09-28] MEDS ORDERED: JARDIANCE10 MG PO (19:33)
[2021-09-28] MEDS ORDERED: FUROSEMIDE 20 M20 MG PO (19:37)
[2021-09-28] MEDS ORDERED: SEROQUEL 100 M100 M1 PO (19:38)
[2021-09-28] MEDS ORDERED: WELLBUTRIN SR150 M1 PO (19:39)
[2021-09-28 20:03] VITALS: BP 136/75
[2021-09-28 20:15] VITALS: BP 130/60
--- NOTE | 2021-09-29 04:43 | NUR ---
PT ARRIVED ON THE UNIT AT 2014 IN STABLE CONDITION. PT IS ALERT AND ORIENTED X4. PT WAS ORINETED TO THE ROOM. PT HAS A CAST ON RIGHT FOREARM. PT DID NOT C/O SOB OR PAIN. MEDS WERE GIVEN PER EMAR ORDERS. FALL PRECAUTIONS IN PLACE. WILL CONTINUE TO MONITOR.
[2021-09-29 06:09] LABS: HEMATOCRIT 39.6 % (37.0-47.0); MCH 29.9 pg (26.0-34.0); MCHC 32.7 g/dL (28.0-37.0); MCV 91.4 fL (80.0-100.0); RBC 4.34 mil/uL (4.20-5.00); RDW 14.1 % (10.5-14.5); WBC 8.1 thou/uL (4.0-11.0)
[2021-09-29 06:20] LABS: CALCIUM 8.9 mg/dL (8.5-10.1); POTASSIUM 4.3 mmol/L (3.5-5.1)
[2021-09-29 07:00] VITALS: BP 143/67
--- NOTE | 2021-09-29 14:50 | NUR ---
ASSUMED PT CARE THIS AM. PT A&OX4, ABLE TO MAKE NEEDS KNOWN. PATIENT ABLE TO MAKE NEEDS KNOWN. PATIENT REPORTING NO PAIN. IV FLUIDS INFUSING THROUGH CHEST PORT. PATIENT ON ROOM AIR. PATIENT REMAINS CONTINENT. PATIENT REFUSING BED ALARM, EDUCATED BUT REINFORCES THAT SHE DOES NOT WANT THE BED ALARM ON. CALL LIGHT WITHIN REACH.
--- NOTE | 2021-09-29 15:53 | NUR ---
PT ADMITTED RELATED TO COPD EXACERBATION. CM REVIEWED CHART AND SPOKE TO CARE TEAM. CM MET WITH PT AT BEDSIDE THIS STAY. APPEARED TO BE ALERT AND ORIENTED. CM ROLE INTRODUCED. PT INDICATED SHE LIVES IN A RANCH STYLE HOUSE WITH HER SPOUSE. SHE INDICATED SHE HAD ALL NEEDED AND NECESSARY DME EQUIPMENT AT HOME. 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 PATIENT HAS A PORT THAT SHE ADMINISTERS TWO DRUGS FOR RELATED TO HER ALPHA 1 DEFICIENCY. PT EXPRESSED DISSATISFACTION WTIH HER ASSIGNED HOSPITALIST. PT NOTIFIED PERLA WITH RISK MANAGEMENT. PT INDICATED SHE WAS SATIFIED WITH INTERVENTION. PT PCP IS ABRAHAM WILKINSON. PT INDICATED HE IS STILL FOLLOWING HER FOR MEDS AND LABS. PT INDICATED SHE ANTICIPATES TO RETURN TO HER HOME TOMORROW FOR SELF CARE. HAD SPOKEN TO PT WITH HH SERVICES AND PT REPORTS SHE DOES NOT FEEL THAT IS NECESSARY ON DISCHARGE. PT DAUGHTER IS GOING TO BRING HER CPAP FOR USE TONIGHT. CM FOLLOWING FOR DC PLANNING.
[2021-09-29 20:09] VITALS: BP 165/61
[2021-09-30 00:29] VITALS: BP 138/59
[2021-09-30 04:25] VITALS: BP 149/70
--- NOTE | 2021-09-30 06:05 | NUR ---
ASSUMED PT CARE THIS PM. PT IS ALERT AND ORIENTED X4. PT HAS A CAST ON THE RFA. PT REFUSED ALL FLUIDS AND ABX INFUSION. PT REFUSED TO NON-SKID SOCKS AND BED ALARM. SCHEDULED PO MEDS WERE GIVEN PER EMAR OTHERS. PT IS ON RA. PT CONCERNED ABOUT NOT GETTING HOME MEDS. NIGHT CAT HOOKER WAS INFORMED AND NOC MEDS WERE STARTED. NO OTHER CONCERNS WERE VERBALIZED BY PT. WILL CONTINUE TO MONITOR.
[2021-09-30 07:15] VITALS: BP 114/56
[2021-09-30] MEDS ORDERED: AZITHROMYCIN500 MG PO (11:44)
[2021-09-30] MEDS ORDERED: PREDNISONE 20 M20 MG PO (11:47)
[2021-09-30 13:45] VITALS: BP 114/56
--- NOTE | 2021-09-30 14:21 | NUR ---
ORDERS RECEIVED FOR EVAL AND TREAT. Pt DISCHARGING HOME TODAY. SPOKE WITH Pt WHO STATES SHE HAS BEEN UP ALREADY WITHOUT DIFFICULTY AND FEELS SAFE FOR HOME. Pt DECLINING A FORMAL P.T. EVAL
--- NOTE | 2021-09-30 16:18 | NUR ---
ALERT AND ORIENTED AND VITALS STABLE. PATIENT REFUSED ANTIBIOTICS AND DR. SOARES NOTIFIED. CONSULT CALLED TO DR. TAYLOR AND WAS TO REVIEW XRAYS. DC ORDERS RECEIVED AND DR. SOARES NOTIFIED OF DR. TAYLOR'S RESPONSE TO THE CONSULT. DC INSTRUCTIONS GIVEN TO PATIENT AND PATIENT DC'D THIS AFTERNOON.
== END 2021-09-30 16:35 | disposition home or self-care (01) | DRG 190 ==
LOC: ER 12:09 → 4W 15:42 → EROBS 15:42 → 4W 20:07
PROVIDERS: Emergency Medicine; ADMIT Hospitalist; ATTEND Hospitalist
DX: J44.1 Chronic obstructive pulmonary disease with (acute) exacerbation (principal); N17.0 Acute kidney failure with tubular necrosis; Z96.643 Presence of artificial hip joint, bilateral; M10.9 Gout, unspecified; J45.909 Unspecified asthma, uncomplicated; Z96.611 Presence of right artificial shoulder joint; F32.9 Major depressive disorder, single episode, unspecified; K21.9 Gastro-esophageal reflux disease without esophagitis; E88.01 Alpha-1-antitrypsin deficiency; F41.9 Anxiety disorder, unspecified; M25.561 Pain in right knee; M17.11 Unilateral primary osteoarthritis, right knee; M06.9 Rheumatoid arthritis, unspecified; R53.81 Other malaise; M85.80 Other specified disorders of bone density and structure, unspecified site; Z20.822 Contact with and (suspected) exposure to COVID-19; Z86.711 Personal history of pulmonary embolism; Z88.1 Allergy status to other antibiotic agents; Z88.0 Allergy status to penicillin; Z88.2 Allergy status to sulfonamides; Z88.8 Allergy status to other drugs, medicaments and biological substances; Z87.891 Personal history of nicotine dependence; Z87.81 Personal history of (healed) traumatic fracture
CPT/HCPCS: 10045